=== PATIENT | male | born 2000 | race Caucasian/White ===

== ENCOUNTER 2019-05-15 10:45 | Inpatient (IN) | payer OTHER ==
[2019-05-15 12:01] VITALS: BMI 29.8
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
[2019-05-15] MEDS ORDERED: METHADONE HCL 10 MG TABLET (FOR DETOX USE ONLY) PO ONE (15:53)
[2019-05-15] MEDS ORDERED: MENTHOL/PHENOL 1 EACH UD MM PRN (15:53)
[2019-05-15] MEDS ORDERED: MAGNESIUM CITRATE 300 ML BOTTLE PO PRN (15:53)
[2019-05-15] MEDS ORDERED: MAGNESIUM HYDROX 2400MG/30ML ORAL SUSPENSION 30 ML CUP PO PRN (15:53)
[2019-05-15] MEDS ORDERED: BISMUTH SUBSALICYLATE 524 MG/30 ML UD PO PRN (15:53)
[2019-05-15] MEDS ORDERED: ACETAMINOPHEN 325 MG TABLET (FP) PO PRN ×2 (15:53)
[2019-05-15] MEDS ORDERED: MAG HYDROX/AL HYDROX/SIMETH 30 ML UNIT-DOSE CUP PO PRN (15:53)
[2019-05-15] MEDS: diazePAM 5 MG TABLET PO PRN (17:16)
[2019-05-15] MEDS: NICOTINE 21 MG/24 HOURS TOPICAL PATCH TD SCH (17:17)
[2019-05-15] MEDS: THIAMINE HCL 100 MG TABLET (FP) PO SCH (22:23)
[2019-05-16] MEDS ORDERED: METHADONE HCL 10 MG TABLET (FOR DETOX USE ONLY) ONE (09:17)
[2019-05-16] MEDS ORDERED: METHADONE HCL 5 MG TABLET (FOR DETOX USE ONLY) ONE (09:17)
[2019-05-16] MEDS ORDERED: METHADONE (DETOX) 20 MG, METHADONE (DETOX) 5 MG PO ONE (10:00)
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
[2019-05-16] MEDS: PRENATAL VITAMINS W/ FOLIC ACID TABLET (FP) PO SCH (10:18)
[2019-05-16] MEDS: METHOCARBAMOL 500 MG TABLET PO PRN ×2 (10:18→16:41)
[2019-05-16] MEDS: diazePAM 5 MG TABLET PO PRN ×2 (10:19→22:21)
[2019-05-16] MEDS: NICOTINE 21 MG/24 HOURS TOPICAL PATCH TD SCH (10:23)
[2019-05-16 10:49] LABS: ALBUMIN 3.7 g/dl (3.4-5.0); BILIRUBIN,TOTAL 0.7 mg/dL (0.2-1); BLOOD UREA NITROGEN 11.5 mg/dL (7-18); CALCIUM 8.5 mg/dL (8.5-10.1); CREATININE 1.1 mg/dL (0.55-1.3); POTASSIUM 4.3 mmol/L (3.5-5.1); TOT PROT 6.4 g/dl (6.4-8.2)
[2019-05-16 11:05] LABS: HEMOGLOBIN 13.7 GM/dL (11.7-16.9); MCH 29.8 pg (25.7-33.7); MCHC 34.3 g/dl (32.0-35.9); MEAN CELL VOLUME 86.8 fl (80-96); MEAN PLT VOLUME 8.6 fl (7.5-11.1); PLATELET COUNT 242 K/MM3 (134-434); RBC 4.61 M/mm3 (4.00-5.60); RDW 13.3 % (11.9-15.9)
--- NOTE | 2019-05-16 11:30 | PN ---
[facility] COWS - Scale Resting Pulse: 0= [place] 80 or Below Sweatin= Chills/Flushing Restless Observation: 0= Sits Still Pupil Size: 1= Pupils >than Normal Bone or Joint Aches: 1= Mild Discomfort Runny Nose/ Eye Tearin= Nasal Congestion GI Upset > 30mins: 1= Stomach Cramp Tremor Observation of Outstretched Hands: 2= Slight Tremor Visible Yawning Observation: 0= None Anxiety or Irritability: 2=Irritable/Anxious Goose Flesh Skin: 3=Piloerection COWS Score: 12 [facility] Progress Note (SOAP) Subjective: doing well with methadone detox regimen mild gi distress tolerate food and fluid well Objective: 05/16/19 11:28 Vital Signs Temperature 96.6 F L 05/16/19 09:43 Pulse Rate 51 L 05/16/19 09:43 Respiratory Rate 18 05/16/19 09:43 Blood Pressure 113/66 05/16/19 09:43 O2 Sat by Pulse Oximetry (%) Laboratory Last Values WBC 8.0 K/mm3 (4.0-10.0) 05/16/19 07:30 RBC 4.61 M/mm3 (4.00-5.60) 05/16/19 07:30 Hgb 13.7 GM/dL (11.7-16.9) 05/16/19 07:30 Hct 40.0 % (35.4-49) 05/16/19 07:30 MCV 86.8 fl (80-96) 05/16/19 07:30 MCH 29.8 pg (25.7-33.7) 05/16/19 07:30 MCHC 34.3 g/dl (32.0-35.9) 05/16/19 07:30 RDW 13.3 % (11.9-15.9) 05/16/19 07:30 Plt Count 242 K/MM3 (134-434) 05/16/19 07:30 MPV 8.6 fl (7.5-11.1) 05/16/19 07:30 Sodium 141 mmol/L (136-145) 05/16/19 07:30 Potassium 4.3 mmol/L (3.5-5.1) 05/16/19 07:30 Chloride 106 mmol/L (98-107) 05/16/19 07:30 Carbon Dioxide 29 mmol/L (21-32) 05/16/19 07:30 Anion Gap 6 MMOL/L (8-16) L 05/16/19 07:30 BUN 11.5 mg/dL (7-18) 05/16/19 07:30 Creatinine 1.1 mg/dL (0.55-1.3) 05/16/19 07:30 Est GFR (CKD-EPI)AfAm 111.41 05/16/19 07:30 Est GFR (CKD-EPI)NonAf 96.13 05/16/19 07:30 Random Glucose 85 mg/dL (74-106) 05/16/19 07:30 Calcium 8.5 mg/dL (8.5-10.1) 05/16/19 07:30 Total Bilirubin 0.7 mg/dL (0.2-1) 05/16/19 07:30 AST 12 U/L (15-37) L 05/16/19 07:30 ALT 23 U/L (13-61) 05/16/19 07:30 Alkaline Phosphatase 82 U/L (45-117) 05/16/19 07:30 Total Protein 6.4 g/dl (6.4-8.2) 05/16/19 07:30 Albumin 3.7 g/dl (3.4-5.0) 05/16/19 07:30 lab noted 05/16/19 11:29 discuss medication assisted treatment program corn picker narcan from pharmacy Assessment: 05/16/19 11:28 opiate withdrawal sx Plan: continue methadone detox regimen
[2019-05-16] MEDS: risperiDONE 1 MG TABLET (FP) PO SCH ×2 (12:48→22:21)
[2019-05-16] MEDS: IBUPROFEN 400 MG TABLET (FP) PO PRN (16:40)
[2019-05-16] MEDS: cloNIDine HCL 0.1 MG TABLET PO PRN ×2 (16:41→22:21)
[2019-05-16] MEDS: hydrOXYzine PAMOATE 25 MG CAPSULE (FP) PO PRN (16:41)
[2019-05-16] MEDS: MELATONIN 5 MG TABLETS PO PRN (22:21)
[2019-05-16] MEDS: THIAMINE HCL 100 MG TABLET (FP) PO SCH (22:21)
[2019-05-17] MEDS ORDERED: METHADONE HCL 10 MG TABLET (FOR DETOX USE ONLY) PO ONE (10:00)
[2019-05-17] MEDS: NICOTINE 21 MG/24 HOURS TOPICAL PATCH TD SCH (10:30)
[2019-05-17] MEDS: PRENATAL VITAMINS W/ FOLIC ACID TABLET (FP) PO SCH (10:30)
[2019-05-17] MEDS: risperiDONE 1 MG TABLET (FP) PO SCH ×2 (10:30→22:14)
[2019-05-17] MEDS: diazePAM 5 MG TABLET PO PRN ×3 (10:33→20:34)
[2019-05-17] MEDS: hydrOXYzine PAMOATE 25 MG CAPSULE (FP) PO PRN ×2 (10:33→16:47)
--- NOTE | 2019-05-17 10:57 | PN ---
BHS COWS - Scale Resting Pulse: 0= [place] 80 or Below Sweatin= Chills/Flushing Restless Observation: 0= Sits Still Pupil Size: 1= Pupils >than Normal Bone or Joint Aches: 1= Mild Discomfort Runny Nose/ Eye Tearin= Nasal Congestion GI Upset > 30mins: 1= Stomach Cramp Tremor Observation of Outstretched Hands: 2= Slight Tremor Visible Yawning Observation: 1= 1-2x During Session Anxiety or Irritability: 2=Irritable/Anxious Goose Flesh Skin: 0=Smooth Skin COWS Score: 10 [facility] Progress Note (SOAP) Subjective: doing well with methadone detox regimen less anxious ambulating on hallway discuss medication assisted treatment progrma pickle pumper narcan from pharmacy Objective: 05/17/19 10:56 Vital Signs Temperature 96.3 F L 05/17/19 09:17 Pulse Rate 57 L 05/17/19 09:17 Respiratory Rate 18 05/17/19 09:17 Blood Pressure 114/73 05/17/19 09:17 O2 Sat by Pulse Oximetry (%) Laboratory Last Values WBC 8.0 K/mm3 (4.0-10.0) 05/16/19 07:30 RBC 4.61 M/mm3 (4.00-5.60) 05/16/19 07:30 Hgb 13.7 GM/dL (11.7-16.9) 05/16/19 07:30 Hct 40.0 % (35.4-49) 05/16/19 07:30 MCV 86.8 fl (80-96) 05/16/19 07:30 MCH 29.8 pg (25.7-33.7) 05/16/19 07:30 MCHC 34.3 g/dl (32.0-35.9) 05/16/19 07:30 RDW 13.3 % (11.9-15.9) 05/16/19 07:30 Plt Count 242 K/MM3 (134-434) 05/16/19 07:30 MPV 8.6 fl (7.5-11.1) 05/16/19 07:30 Sodium 141 mmol/L (136-145) 05/16/19 07:30 Potassium 4.3 mmol/L (3.5-5.1) 05/16/19 07:30 Chloride 106 mmol/L (98-107) 05/16/19 07:30 Carbon Dioxide 29 mmol/L (21-32) 05/16/19 07:30 Anion Gap 6 MMOL/L (8-16) L 05/16/19 07:30 BUN 11.5 mg/dL (7-18) 05/16/19 07:30 Creatinine 1.1 mg/dL (0.55-1.3) 05/16/19 07:30 Est GFR (CKD-EPI)AfAm 111.41 05/16/19 07:30 Est GFR (CKD-EPI)NonAf 96.13 05/16/19 07:30 Random Glucose 85 mg/dL (74-106) 05/16/19 07:30 Calcium 8.5 mg/dL (8.5-10.1) 05/16/19 07:30 Total Bilirubin 0.7 mg/dL (0.2-1) 05/16/19 07:30 AST 12 U/L (15-37) L 05/16/19 07:30 ALT 23 U/L (13-61) 05/16/19 07:30 Alkaline Phosphatase 82 U/L (45-117) 05/16/19 07:30 Total Protein 6.4 g/dl (6.4-8.2) 05/16/19 07:30 Albumin 3.7 g/dl (3.4-5.0) 05/16/19 07:30 RPR Titer Nonreactive (NONREACTIVE) 05/16/19 07:30 lab noted Assessment: 05/17/19 10:56 opiate withdrawal sx Plan: continue methadone detox regimen
--- NOTE | 2019-05-17 13:26 | EKG ---
Test Reason : Blood Pressure : / mmHG Vent. Rate : 045 BPM Atrial Rate : 045 BPM P-R Int : 128 ms QRS Dur : 104 ms QT Int : 472 ms P-R-T Axes : 058 077 060 degrees QTc Int : 408 ms SINUS BRADYCARDIA OTHERWISE NORMAL ECG NO PREVIOUS ECGS AVAILABLE Confirmed by OSCAR MOORE MD ([id number]) on 05/17/2019 1:25:50 PM Referred By: ADRIAN GAITAN Confirmed By:OSCAR MOORE MD
[2019-05-17] MEDS: METHOCARBAMOL 500 MG TABLET PO PRN ×2 (14:37→20:34)
[2019-05-17] MEDS: cloNIDine HCL 0.1 MG TABLET PO PRN (16:45)
[2019-05-17] MEDS: IBUPROFEN 400 MG TABLET (FP) PO PRN (16:45)
[2019-05-17] MEDS: THIAMINE HCL 100 MG TABLET (FP) PO SCH (22:14)
[2019-05-17] MEDS: MELATONIN 5 MG TABLETS PO PRN (22:14)
[2019-05-18] MEDS: hydrOXYzine PAMOATE 25 MG CAPSULE (FP) PO PRN ×4 (01:03→22:13)
[2019-05-18] MEDS: diazePAM 5 MG TABLET PO PRN ×2 (01:03→10:32)
[2019-05-18] MEDS ORDERED: METHADONE HCL 10 MG TABLET (FOR DETOX USE ONLY) ONE ×3 (08:12)
[2019-05-18] MEDS ORDERED: METHADONE HCL 5 MG TABLET (FOR DETOX USE ONLY) ONE ×3 (08:12)
[2019-05-18] MEDS ORDERED: METHADONE (DETOX) 10 MG, METHADONE (DETOX) 5 MG PO ONE (10:00)
[2019-05-18] MEDS: NICOTINE 21 MG/24 HOURS TOPICAL PATCH TD SCH (10:32)
[2019-05-18] MEDS: PRENATAL VITAMINS W/ FOLIC ACID TABLET (FP) PO SCH (10:32)
[2019-05-18] MEDS: METHOCARBAMOL 500 MG TABLET PO PRN ×3 (10:32→22:12)
[2019-05-18] MEDS: risperiDONE 1 MG TABLET (FP) PO SCH ×2 (10:32→22:12)
[2019-05-18] MEDS: IBUPROFEN 400 MG TABLET (FP) PO PRN (11:44)
[2019-05-18] MEDS ORDERED: ARTIFICIAL TEARS (POLYVINYL ALCOHOL) OPTH DROPS OU PRN (14:27)
--- NOTE | 2019-05-18 14:32 | PN ---
BHS COWS - Scale Resting Pulse: 0= [place] 80 or Below Sweatin= No chills or Flushing Restless Observation: 1= Difficult to Sit Still Pupil Size: 0= Normal to Room Light Bone or Joint Aches: 4=Acute Joint/Muscle Pain Runny Nose/ Eye Tearin= None GI Upset > 30mins: 0= None Tremor Observation of Outstretched Hands: 0= None Yawning Observation: 1= 1-2x During Session Anxiety or Irritability: 2=Irritable/Anxious Goose Flesh Skin: 3=Piloerection (and Itching.) COWS Score: 11 [facility] Progress Note (SOAP) Subjective: Anxious, Body Aches, Restless, Itching. Objective: PATIENT A & O X 3, OBSERVED AMBULATING ON DETOX UNIT UNASSISTED. IN NO ACUTE DISTRESS. 05/18/19 14:31 Vital Signs Temperature 97.9 F 05/18/19 09:16 Pulse Rate 71 05/18/19 09:16 Respiratory Rate 18 05/18/19 09:16 Blood Pressure 124/62 05/18/19 09:16 O2 Sat by Pulse Oximetry (%) Laboratory Tests 05/16/19 05/16/19 05/16/19 07:30 07:30 07:30 WBC 8.0 RBC 4.61 Hgb 13.7 Hct 40.0 MCV 86.8 MCH 29.8 MCHC 34.3 RDW 13.3 Plt Count 242 MPV 8.6 Sodium 141 Potassium 4.3 Chloride 106 Carbon Dioxide 29 Anion Gap 6 L BUN 11.5 Creatinine 1.1 Est GFR (CKD-EPI)AfAm 111.41 Est GFR (CKD-EPI)NonAf 96.13 Random Glucose 85 Calcium 8.5 Total Bilirubin 0.7 AST 12 L ALT 23 Alkaline Phosphatase 82 Total Protein 6.4 Albumin 3.7 RPR Titer Nonreactive LABS NOTED. Assessment: 05/18/19 14:32 WITHDRAWAL SYMPTOMS. Plan: CONTINUE DETOX. INCREASE DAILY PO WATER INTAKE. PRN ROBAXIN FOR BODY ACHES / MUSCLE SPASMS.
[2019-05-18] MEDS: LIDOCAINE 5% TOPICAL PATCH TP SCH (15:40)
[2019-05-18] MEDS ORDERED: IBUPROFEN 600 MG TABLET (FP) PO ONE (17:02)
[2019-05-18] MEDS: NICOTINE POLACRILEX 2 MG GUM BUC PRN (17:04)
[2019-05-18 17:13] LABS: PH,URINE 5.5 (5.0-8.0); URINE APPEARANCE CLEAR; URINE BILIRUBIN NEGATIVE (NEGATIVE); URINE COLOR YELLOW; URINE GLUCOSE (UA) NEGATIVE (NEGATIVE); URINE KETONE NEGATIVE (NEGATIVE); URINE LEUK ESTERASE NEGATIVE (NEGATIVE); URINE NITRITE NEGATIVE (NEGATIVE); URINE PROTEIN NEGATIVE (NEGATIVE); URINE UROBILINOGEN 0.2 mg/dL (0.2-1.0)
[2019-05-18] MEDS: IBUPROFEN 600 MG TABLET (FP) PO PRN (20:14)
[2019-05-18] MEDS: THIAMINE HCL 100 MG TABLET (FP) PO SCH (22:12)
[2019-05-18] MEDS: MELATONIN 5 MG TABLETS PO PRN (22:14)
[2019-05-18] MEDS: BACITRACIN 15 GM TUBE TOPICAL OINTMENT TP SCH (22:46)
[2019-05-18] MEDS: LIDOCAINE PATCH REMOVAL MC SCH (22:47)
[2019-05-19] MEDS ORDERED: METHADONE HCL 10 MG TABLET (FOR DETOX USE ONLY) PO ONE (10:00)
[2019-05-19] MEDS: NICOTINE 21 MG/24 HOURS TOPICAL PATCH TD SCH (10:39)
[2019-05-19] MEDS: NICOTINE POLACRILEX 2 MG GUM BUC PRN (10:39)
[2019-05-19] MEDS: METHOCARBAMOL 500 MG TABLET PO PRN ×3 (10:39→23:23)
[2019-05-19] MEDS: hydrOXYzine PAMOATE 25 MG CAPSULE (FP) PO PRN ×3 (10:39→22:29)
[2019-05-19] MEDS: PRENATAL VITAMINS W/ FOLIC ACID TABLET (FP) PO SCH (10:39)
[2019-05-19] MEDS: risperiDONE 1 MG TABLET (FP) PO SCH ×2 (10:39→22:02)
[2019-05-19] MEDS: BACITRACIN 15 GM TUBE TOPICAL OINTMENT TP SCH ×2 (10:40→22:01)
[2019-05-19] MEDS: LIDOCAINE 5% TOPICAL PATCH TP SCH (10:47)
--- NOTE | 2019-05-19 14:22 | PN ---
BHS COWS - Scale Resting Pulse: 1= [place] 81-100 Sweatin= No chills or Flushing Restless Observation: 1= Difficult to Sit Still Pupil Size: 0= Normal to Room Light Bone or Joint Aches: 2= Severe Diffuse Aches Runny Nose/ Eye Tearin= None GI Upset > 30mins: 1= Stomach Cramp Tremor Observation of Outstretched Hands: 0= None Yawning Observation: 1= 1-2x During Session Anxiety or Irritability: 2=Irritable/Anxious Goose Flesh Skin: 0=Smooth Skin COWS Score: 8 [facility] Progress Note (SOAP) Subjective: Anxious, Restless, Body Aches, Stomach Cramping. Objective: PATIENT A & O X 3, OBSERVED AMBULATING ON DETOX UNIT UNASSISTED. IN NO ACUTE DISTRESS. 05/19/19 14:20 Vital Signs Temperature 96.5 F L 05/19/19 13:28 Pulse Rate 90 05/19/19 13:28 Respiratory Rate 18 05/19/19 13:28 Blood Pressure 124/75 05/19/19 13:28 O2 Sat by Pulse Oximetry (%) Laboratory Tests 05/16/19 05/16/19 05/16/19 07:30 07:30 07:30 WBC 8.0 RBC 4.61 Hgb 13.7 Hct 40.0 MCV 86.8 MCH 29.8 MCHC 34.3 RDW 13.3 Plt Count 242 MPV 8.6 Sodium 141 Potassium 4.3 Chloride 106 Carbon Dioxide 29 Anion Gap 6 L BUN 11.5 Creatinine 1.1 Est GFR (CKD-EPI)AfAm 111.41 Est GFR (CKD-EPI)NonAf 96.13 Random Glucose 85 Calcium 8.5 Total Bilirubin 0.7 AST 12 L ALT 23 Alkaline Phosphatase 82 Total Protein 6.4 Albumin 3.7 Urine Color Urine Appearance Urine pH Ur Specific [place] Urine Protein Urine Glucose (UA) Urine Ketones Urine Blood Urine Nitrite Urine Bilirubin Urine Urobilinogen Ur Leukocyte Esterase RPR Titer Nonreactive 05/18/19 16:37 WBC RBC Hgb Hct MCV MCH MCHC RDW Plt Count MPV Sodium Potassium Chloride Carbon Dioxide Anion Gap BUN Creatinine Est GFR (CKD-EPI)AfAm Est GFR (CKD-EPI)NonAf Random Glucose Calcium Total Bilirubin AST ALT Alkaline Phosphatase Total Protein Albumin Urine Color Yellow Urine Appearance Clear Urine pH 5.5 Ur Specific [place] 1.008 L Urine Protein Negative Urine Glucose (UA) Negative Urine Ketones Negative Urine Blood Negative Urine Nitrite Negative Urine Bilirubin Negative Urine Urobilinogen 0.2 Ur Leukocyte Esterase Negative RPR Titer LABS NOTED. Assessment: 05/19/19 14:21 WITHDRAWAL SYMPTOMS. Plan: CONTINUE DETOX.
[2019-05-19] MEDS: IBUPROFEN 600 MG TABLET (FP) PO PRN (14:32)
[2019-05-19] MEDS: LIDOCAINE PATCH REMOVAL MC SCH (22:02)
[2019-05-19] MEDS: THIAMINE HCL 100 MG TABLET (FP) PO SCH (22:02)
[2019-05-20] MEDS: IBUPROFEN 600 MG TABLET (FP) PO PRN (05:55)
[2019-05-20] MEDS: METHOCARBAMOL 500 MG TABLET PO PRN (05:55)
[2019-05-20] MEDS: hydrOXYzine PAMOATE 25 MG CAPSULE (FP) PO PRN (05:56)
[2019-05-20] MEDS ORDERED: METHADONE HCL 5 MG TABLET (FOR DETOX USE ONLY) PO ONE (06:00)
--- NOTE | 2019-05-20 09:07 | PN ---
S Progress Note Note: Patient scheduled for discharge today. A 30 day prescription of Risperdal 1mg BID was electronically sent to [facility], [address] [place] [address].
[2019-05-20 09:16] VITALS: BP 142/76; PULSE 98; TEMP 96.9
--- NOTE | 2019-05-20 09:43 | DS ---
[facility] Detox Discharge Summary Admission Date: 05/15/19 Discharge Date: 05/20/19 - History Present History: Cannabis Dependence, Cocaine Dependence, Opioid Dependence Additional Comments: follow up with pcp - Physical Exam Results Vital Signs: Vital Signs Temperature 96.9 F L 05/20/19 08:50 Pulse Rate 98 H 05/20/19 08:50 Respiratory Rate 18 05/20/19 08:50 Blood Pressure 142/76 05/20/19 08:50 O2 Sat by Pulse Oximetry (%) Pertinent Admission Physical Exam Findings: Vital Signs Temperature 96.9 F L 05/20/19 08:50 Pulse Rate 98 H 05/20/19 08:50 Respiratory Rate 18 05/20/19 08:50 Blood Pressure 142/76 05/20/19 08:50 O2 Sat by Pulse Oximetry (%) Laboratory Last Values WBC 8.0 K/mm3 (4.0-10.0) 05/16/19 07:30 RBC 4.61 M/mm3 (4.00-5.60) 05/16/19 07:30 Hgb 13.7 GM/dL (11.7-16.9) 05/16/19 07:30 Hct 40.0 % (35.4-49) 05/16/19 07:30 MCV 86.8 fl (80-96) 05/16/19 07:30 MCH 29.8 pg (25.7-33.7) 05/16/19 07:30 MCHC 34.3 g/dl (32.0-35.9) 05/16/19 07:30 RDW 13.3 % (11.9-15.9) 05/16/19 07:30 Plt Count 242 K/MM3 (134-434) 05/16/19 07:30 MPV 8.6 fl (7.5-11.1) 05/16/19 07:30 Sodium 141 mmol/L (136-145) 05/16/19 07:30 Potassium 4.3 mmol/L (3.5-5.1) 05/16/19 07:30 Chloride 106 mmol/L (98-107) 05/16/19 07:30 Carbon Dioxide 29 mmol/L (21-32) 05/16/19 07:30 Anion Gap 6 MMOL/L (8-16) L 05/16/19 07:30 BUN 11.5 mg/dL (7-18) 05/16/19 07:30 Creatinine 1.1 mg/dL (0.55-1.3) 05/16/19 07:30 Est GFR (CKD-EPI)AfAm 111.41 05/16/19 07:30 Est GFR (CKD-EPI)NonAf 96.13 05/16/19 07:30 Random Glucose 85 mg/dL (74-106) 05/16/19 07:30 Calcium 8.5 mg/dL (8.5-10.1) 05/16/19 07:30 Total Bilirubin 0.7 mg/dL (0.2-1) 05/16/19 07:30 AST 12 U/L (15-37) L 05/16/19 07:30 ALT 23 U/L (13-61) 05/16/19 07:30 Alkaline Phosphatase 82 U/L (45-117) 05/16/19 07:30 Total Protein 6.4 g/dl (6.4-8.2) 05/16/19 07:30 Albumin 3.7 g/dl (3.4-5.0) 05/16/19 07:30 Urine Color Yellow 05/18/19 16:37 Urine Appearance Clear 05/18/19 16:37 Urine pH 5.5 (5.0-8.0) 05/18/19 16:37 Ur Specific [place] 1.008 (1.010-1.035) L 05/18/19 16:37 Urine Protein Negative (NEGATIVE) 05/18/19 16:37 Urine Glucose (UA) Negative (NEGATIVE) 05/18/19 16:37 Urine Ketones Negative (NEGATIVE) 05/18/19 16:37 Urine Blood Negative (NEGATIVE) 05/18/19 16:37 Urine Nitrite Negative (NEGATIVE) 05/18/19 16:37 Urine Bilirubin Negative (NEGATIVE) 05/18/19 16:37 Urine Urobilinogen 0.2 mg/dL (0.2-1.0) 05/18/19 16:37 Ur Leukocyte Esterase Negative (NEGATIVE) 05/18/19 16:37 RPR Titer Nonreactive (NONREACTIVE) 05/16/19 07:30 - Treatment Hospital Course: Detox Protocol Followed, Detoxed Safely, Responded well, Discharged Condition Good, Rehab Referral Accepted - Medication Discharge Medications: Ambulatory Orders Naloxone HCl [Narcan] 4 mg NS ASDIR PRN #1 spray 05/16/19 Risperidone [Risperdal -] 1 mg PO BID #60 tablet 05/20/19 - Diagnosis (1) Cannabis dependence Status: Acute (2) Opioid dependence with withdrawal Status: Acute - AMA Did Patient Leave Against Medical Advice: No
[2019-05-20] MEDS: BACITRACIN 15 GM TUBE TOPICAL OINTMENT TP SCH (10:32)
[2019-05-20] MEDS: LIDOCAINE 5% TOPICAL PATCH TP SCH (10:32)
[2019-05-20] MEDS: PRENATAL VITAMINS W/ FOLIC ACID TABLET (FP) PO SCH (10:32)
[2019-05-20] MEDS: NICOTINE 21 MG/24 HOURS TOPICAL PATCH TD SCH (10:32)
[2019-05-20] MEDS: risperiDONE 1 MG TABLET (FP) PO SCH (10:32)
== END 2019-05-20 08:53 | disposition home or self-care (01) | DRG 773 ==
LOC: EDBD 10:45 → YASAS 10:45 → Y3N 16:03
PROVIDERS: ADMIT Surgery; ATTEND Surgery
PROC: HZ2ZZZZ Detoxification Services for Substance Abuse Treatment (ICD-10-PCS; principal; 2019-05-15)
DX: F11.23 Opioid dependence with withdrawal (principal); F14.20 Cocaine dependence, uncomplicated; F12.20 Cannabis dependence, uncomplicated; F17.210 Nicotine dependence, cigarettes, uncomplicated; F43.10 Post-traumatic stress disorder, unspecified; F39 Unspecified mood [affective] disorder; F19.24 Other psychoactive substance dependence with psychoactive substance-induced mood disorder; F41.8 Other specified anxiety disorders; F31.9 Bipolar disorder, unspecified
CPT/HCPCS: 36415; 80053; 81003; 85027; 86593; 93005; 93010; J0735; J2794

== ENCOUNTER 2019-05-22 15:42 | Inpatient (IN) | payer OTHER ==
[2019-05-22 16:39] VITALS: BMI 28.5
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
[2019-05-22] MEDS ORDERED: MAGNESIUM HYDROX 2400MG/30ML ORAL SUSPENSION 30 ML CUP PO PRN (18:39)
[2019-05-22] MEDS ORDERED: MAG HYDROX/AL HYDROX/SIMETH 30 ML UNIT-DOSE CUP PO PRN (18:39)
[2019-05-22] MEDS ORDERED: NICOTINE POLACRILEX 2 MG GUM BC PRN (18:39)
[2019-05-22] MEDS ORDERED: MENTHOL/PHENOL 1 EACH UD MM PRN (18:39)
[2019-05-22] MEDS ORDERED: guaiFENesin 200 MG/10 ML 10 ML UNIT-DOSE CUPS PO PRN (18:39)
[2019-05-22] MEDS ORDERED: LOPERAMIDE HCL 2 MG CAPSULE PO PRN (18:39)
[2019-05-22] MEDS ORDERED: MAGNESIUM CITRATE 300 ML BOTTLE PO PRN (18:39)
[2019-05-22] MEDS ORDERED: ACETAMINOPHEN 325 MG TABLET (FP) PO PRN (18:39)
[2019-05-22] MEDS ORDERED: THIAMINE HCL 100 MG TABLET (FP) PO SCH (22:00)
[2019-05-22] MEDS ORDERED: MELATONIN 5 MG TABLETS PO PRN (22:00)
[2019-05-22] MEDS: METHOCARBAMOL 500 MG TABLET PO SCH (22:05)
[2019-05-22] MEDS: hydrOXYzine PAMOATE 50 MG CAPSULE (FP) PO PRN (22:06)
[2019-05-22] MEDS: NICOTINE 21 MG/24 HOURS TOPICAL PATCH TD SCH (22:06)
[2019-05-22] MEDS: IBUPROFEN 400 MG TABLET (FP) PO PRN (22:59)
[2019-05-22] MEDS: P-EPHED 60MG/TRIPROLIDI 2.5MG TABLET PO PRN (23:11)
[2019-05-23] MEDS ORDERED: PRENATAL VITAMINS W/ FOLIC ACID TABLET (FP) PO SCH (10:00)
[2019-05-23] MEDS: METHOCARBAMOL 500 MG TABLET PO SCH (10:48)
[2019-05-23] MEDS: NICOTINE 21 MG/24 HOURS TOPICAL PATCH TD SCH (10:49)
[2019-05-23] MEDS: hydrOXYzine PAMOATE 50 MG CAPSULE (FP) PO PRN ×2 (10:51→16:49)
[2019-05-23] MEDS: P-EPHED 60MG/TRIPROLIDI 2.5MG TABLET PO PRN (10:51)
[2019-05-23] MEDS: IBUPROFEN 400 MG TABLET (FP) PO PRN (10:52)
[2019-05-23] MEDS ORDERED: FLU VACCINE QUAD 60 MCG/0.5 ML (MDV 19-20) IM ONE (12:00)
[2019-05-23 16:51] VITALS: BP 126/69; PULSE 86; TEMP 98.1
--- NOTE | 2019-05-23 17:48 | PN ---
[facility] Progress Note Note: Patient states does not want to stay. Will be f/u w/ outpatient program. Alert and oriented. Gait steady. No withdrawal symptoms. Vital Signs 05/23/19 16:50 Temperature 98.1 F Pulse Rate 86 Respiratory 18 Rate Blood Pressure 126/69 Discussed overdose risks and prevention. States Narcan ordered at time of detox. Reviewed importance of smoking cessation to aide in sobriety. Consents to Nicotine gum and patch prescriptions to pharmacy.
--- NOTE | 2019-05-23 17:49 | DS ---
[facility] Rehab Discharge Summary - [facility] Rehab Discharge Summary Admission Date: 05/22/19 Discharge Date: 05/23/19 - History Present History: Cannabis dependence, Cocaine dependence, Opioid dependence Pertinent Past History: Patient w/ a hx opioid, cannabis, and cocaine use disorder. Patient discharged from detox on 05/20/19. - Discharge Physical Exam Vital Signs: Vital Signs Temperature 98.1 F 05/23/19 16:50 Pulse Rate 86 05/23/19 16:50 Respiratory Rate 18 05/23/19 16:50 Blood Pressure 126/69 05/23/19 16:50 O2 Sat by Pulse Oximetry (%) Pertinent Admission Physical Exam Findings: Admitted w/ early opioid, cocaine, and THC remission. - Treatment Discharge Condition: Outpatient referral accepted Hospital Course: Patient in rehab for one day. Patient states does not want to stay and he will be f/u w/ outpatient program referral. Alert and oriented. Gait steady. No withdrawal symptoms. Discussed overdose risks and prevention. States Narcan ordered at time of detox. Reviewed importance of smoking cessation to aide in sobriety. Consents to Nicotine gum and patch prescriptions to pharmacy. - Medication Discharge Medications: Ambulatory Orders Risperidone [Risperdal -] 1 mg PO BID #60 tablet 05/20/19 Nicotine Patch [Nicoderm Patch -] 21 mg TD DAILY #30 patch 05/23/19 Nicotine Polacrilex [Nicorelief -] 2 mg BC Q2H PRN #90 gum 05/23/19 - Medication-Assisted Treatment (MAT) Medication-Assisted Treatment (MAT): No - Discharge Instructions Diet, activity, other medical instructions: Diet: Activity: Other medical instructions: - Diagnosis (1) Opioid use disorder, moderate, in early remission Status: Acute (2) Cocaine use disorder, moderate, in early remission Status: Acute (3) Moderate cannabis dependence in early remission Status: Acute (4) Nicotine use disorder Status: Chronic - Follow-up Referral Minutes to complete discharge: 20 - AMA Did Patient Leave Against Medical Advice: Yes
== END 2019-05-23 18:00 | disposition left against medical advice (07) | DRG 770 ==
LOC: YASAS 15:42 → Y5N 18:54
PROVIDERS: ADMIT Neuromusculoskeletal Medicine & OMM; ATTEND Neuromusculoskeletal Medicine & OMM
PROC: HZ42ZZZ Group Counseling for Substance Abuse Treatment, Cognitive-Behavioral (ICD-10-PCS; principal; 2019-05-22)
DX: F11.20 Opioid dependence, uncomplicated (principal); F14.20 Cocaine dependence, uncomplicated; F12.20 Cannabis dependence, uncomplicated; F17.210 Nicotine dependence, cigarettes, uncomplicated; F41.9 Anxiety disorder, unspecified; F31.9 Bipolar disorder, unspecified; F19.24 Other psychoactive substance dependence with psychoactive substance-induced mood disorder
CPT/HCPCS: Q2036

== ENCOUNTER 2019-10-16 22:50 | Inpatient (IN) | payer OTHER ==
[2019-10-16 23:20] VITALS: BMI 34.8
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
[2019-10-16] MEDS ORDERED: MAG HYDROX/AL HYDROX/SIMETH 30 ML UNIT-DOSE CUP PO PRN (23:33)
[2019-10-16] MEDS ORDERED: MENTHOL/PHENOL 1 EACH UD MM PRN (23:33)
[2019-10-16] MEDS ORDERED: NALOXONE HCL 0.4 MG/ML VIAL IM PRN (23:33)
[2019-10-16] MEDS ORDERED: IBUPROFEN 400 MG TABLET (FP) PO PRN (23:33)
[2019-10-16] MEDS ORDERED: MAGNESIUM HYDROX 2400MG/30ML ORAL SUSPENSION 30 ML CUP PO PRN (23:33)
[2019-10-16] MEDS ORDERED: cloNIDine HCL 0.1 MG TABLET PO PRN (23:33)
[2019-10-16] MEDS ORDERED: MAGNESIUM CITRATE 300 ML BOTTLE PO PRN (23:33)
[2019-10-16] MEDS ORDERED: NICOTINE POLACRILEX 2 MG GUM BUC PRN (23:33)
[2019-10-16] MEDS ORDERED: ACETAMINOPHEN 325 MG TABLET (FP) PO PRN ×2 (23:33)
[2019-10-16] MEDS ORDERED: BISMUTH SUBSALICYLATE 524 MG/30 ML UD PO PRN (23:33)
[2019-10-16] MEDS ORDERED: METHADONE HCL 10 MG TABLET (FOR DETOX USE ONLY) PO ONE ×2 (23:55→23:59)
[2019-10-17] MEDS: MELATONIN 5 MG TABLETS PO PRN ×2 (00:59→22:10)
[2019-10-17 09:27] LABS: HEMATOCRIT 38.5 % (35.4-49); HEMOGLOBIN 13.5 GM/dL (11.7-16.9); MCH 29.9 pg (25.7-33.7); MEAN CELL VOLUME 85.4 fl (80-96); MEAN PLT VOLUME 7.8 fl (7.5-11.1); PLATELET COUNT 256 K/MM3 (134-434); RBC 4.51 M/mm3 (4.00-5.60); RDW 12.8 % (11.9-15.9); WHITE BLOOD COUNT 7.4 K/mm3 (4.0-10.0)
[2019-10-17] MEDS ORDERED: METHADONE HCL 10 MG TABLET (FOR DETOX USE ONLY) ONE (09:32)
[2019-10-17] MEDS ORDERED: METHADONE HCL 5 MG TABLET (FOR DETOX USE ONLY) ONE (09:33)
[2019-10-17 09:38] LABS: ALBUMIN 3.8 g/dl (3.4-5.0); BILIRUBIN,TOTAL 1.4 mg/dL (0.2-1); BLOOD UREA NITROGEN 11.7 mg/dL (7-18); CALCIUM 8.8 mg/dL (8.5-10.1); CREATININE 1.2 mg/dL (0.55-1.3); POTASSIUM 3.9 mmol/L (3.5-5.1); TOT PROT 6.4 g/dl (6.4-8.2)
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
[2019-10-17] MEDS ORDERED: METHADONE (DETOX) 20 MG, METHADONE (DETOX) 5 MG PO ONE (10:00)
[2019-10-17] MEDS: NICOTINE 21 MG/24 HOURS TOPICAL PATCH TD SCH (10:03)
[2019-10-17] MEDS: PRENATAL VITAMINS W/ FOLIC ACID TABLET (FP) PO SCH (10:03)
[2019-10-17] MEDS: risperiDONE 1 MG TABLET PO SCH ×2 (10:26→22:09)
--- NOTE | 2019-10-17 11:58 | EKG ---
Test Reason : Blood Pressure : / mmHG Vent. Rate : 059 BPM Atrial Rate : 059 BPM P-R Int : 128 ms QRS Dur : 092 ms QT Int : 420 ms P-R-T Axes : 049 064 037 degrees QTc Int : 415 ms SINUS BRADYCARDIA WHEN COMPARED WITH ECG OF 15-MAY-2019 16:19, NO SIGNIFICANT CHANGE WAS FOUND Confirmed by KWAKU ACEVEDO MD ([id number]) on 10/17/2019 11:58:18 AM Referred By: Confirmed By:KWAKU ACEVEDO MD
--- NOTE | 2019-10-17 14:16 | PN ---
BHS COWS - Scale Resting Pulse: 0= [place] 80 or Below Sweatin= No chills or Flushing Restless Observation: 0= Sits Still Pupil Size: 1= Pupils >than Normal Bone or Joint Aches: 1= Mild Discomfort Runny Nose/ Eye Tearin= None GI Upset > 30mins: 0= None Tremor Observation of Outstretched Hands: 0= None Yawning Observation: 0= None Anxiety or Irritability: 1=Feels Anxious/Irritable Goose Flesh Skin: 3=Piloerection COWS Score: 6 BHS Progress Note (SOAP) Subjective: 19 years old male admitted on 10/16/19 for opiate withdrawal sx management treating wtih methdone detox regiment poor appetite requests ensure health teaching on balance diet with exercise regularly request increase methadone dosage discuss medication assisted treatment program case discuss with counselor for MAT referral Objective: 10/17/19 14:15 Vital Signs Temperature 97.3 F L 10/17/19 10:00 Pulse Rate 50 L 10/17/19 10:00 Respiratory Rate 20 10/17/19 10:00 Blood Pressure 112/60 10/17/19 10:00 O2 Sat by Pulse Oximetry (%) Laboratory Last Values WBC 7.4 K/mm3 (4.0-10.0) 10/17/19 07:30 RBC 4.51 M/mm3 (4.00-5.60) 10/17/19 07:30 Hgb 13.5 GM/dL (11.7-16.9) 10/17/19 07:30 Hct 38.5 % (35.4-49) 10/17/19 07:30 MCV 85.4 fl (80-96) 10/17/19 07:30 MCH 29.9 pg (25.7-33.7) 10/17/19 07:30 MCHC 35.0 g/dl (32.0-35.9) 10/17/19 07:30 RDW 12.8 % (11.9-15.9) 10/17/19 07:30 Plt Count 256 K/MM3 (134-434) 10/17/19 07:30 MPV 7.8 fl (7.5-11.1) 10/17/19 07:30 Sodium 140 mmol/L (136-145) 10/17/19 07:30 Potassium 3.9 mmol/L (3.5-5.1) 10/17/19 07:30 Chloride 105 mmol/L (98-107) 10/17/19 07:30 Carbon Dioxide 31 mmol/L (21-32) 10/17/19 07:30 Anion Gap 4 MMOL/L (8-16) L 10/17/19 07:30 BUN 11.7 mg/dL (7-18) 10/17/19 07:30 Creatinine 1.2 mg/dL (0.55-1.3) 10/17/19 07:30 Est GFR (CKD-EPI)AfAm 99.58 10/17/19 07:30 Est GFR (CKD-EPI)NonAf 85.92 10/17/19 07:30 Random Glucose 86 mg/dL (74-106) 10/17/19 07:30 Calcium 8.8 mg/dL (8.5-10.1) 10/17/19 07:30 Total Bilirubin 1.4 mg/dL (0.2-1) H 10/17/19 07:30 AST 21 U/L (15-37) 10/17/19 07:30 ALT 28 U/L (13-61) 10/17/19 07:30 Alkaline Phosphatase 64 U/L (45-117) 10/17/19 07:30 Total Protein 6.4 g/dl (6.4-8.2) 10/17/19 07:30 Albumin 3.8 g/dl (3.4-5.0) 10/17/19 07:30 RPR Titer Nonreactive (NONREACTIVE) 10/17/19 07:30 HIV 1&2 Antibody Screen Negative 10/17/19 07:30 HIV P24 Antigen Negative 10/17/19 07:30 lab noted Assessment: 10/17/19 14:15 opiate withdrawal Plan: methadone regiment
[2019-10-17] MEDS: hydrOXYzine PAMOATE 50 MG CAPSULE (FP) PO PRN (17:34)
[2019-10-17] MEDS: THIAMINE HCL 100 MG TABLET (FP) PO SCH (22:09)
[2019-10-18] MEDS ORDERED: METHADONE HCL 10 MG TABLET (FOR DETOX USE ONLY) PO ONE (10:00)
[2019-10-18] MEDS: PRENATAL VITAMINS W/ FOLIC ACID TABLET (FP) PO SCH (10:22)
[2019-10-18] MEDS: METHOCARBAMOL 500 MG TABLET PO PRN (10:22)
[2019-10-18] MEDS: risperiDONE 1 MG TABLET PO SCH ×2 (10:22→22:18)
[2019-10-18] MEDS: NICOTINE 21 MG/24 HOURS TOPICAL PATCH TD SCH (10:22)
--- NOTE | 2019-10-18 10:36 | PN ---
BHS COWS - Scale Resting Pulse: 0= [place] 80 or Below Sweatin= No chills or Flushing Restless Observation: 0= Sits Still Pupil Size: 0= Normal to Room Light Bone or Joint Aches: 1= Mild Discomfort Runny Nose/ Eye Tearin= None GI Upset > 30mins: 1= Stomach Cramp Tremor Observation of Outstretched Hands: 1= Tremor [place], Not Seen Yawning Observation: 1= 1-2x During Session Anxiety or Irritability: 0= None Goose Flesh Skin: 0=Smooth Skin COWS Score: 4 BHS Progress Note (SOAP) Subjective: 19 years old male admitted on 10/16/19 for opiate withdrawal sx management treating with methadone detox regiment feeling better today ate small amount of breakfast resting in bed comfortably ensure supplement as satisfaction encourage physical activities to groups and meetings for behavior and psychosocial therapies Objective: 10/18/19 10:41 Vital Signs Temperature 97.1 F L 10/18/19 08:34 Pulse Rate 52 L 10/18/19 08:34 Respiratory Rate 18 10/18/19 08:34 Blood Pressure 144/78 10/18/19 08:34 O2 Sat by Pulse Oximetry (%) Laboratory Last Values WBC 7.4 K/mm3 (4.0-10.0) 10/17/19 07:30 RBC 4.51 M/mm3 (4.00-5.60) 10/17/19 07:30 Hgb 13.5 GM/dL (11.7-16.9) 10/17/19 07:30 Hct 38.5 % (35.4-49) 10/17/19 07:30 MCV 85.4 fl (80-96) 10/17/19 07:30 MCH 29.9 pg (25.7-33.7) 10/17/19 07:30 MCHC 35.0 g/dl (32.0-35.9) 10/17/19 07:30 RDW 12.8 % (11.9-15.9) 10/17/19 07:30 Plt Count 256 K/MM3 (134-434) 10/17/19 07:30 MPV 7.8 fl (7.5-11.1) 10/17/19 07:30 Sodium 140 mmol/L (136-145) 10/17/19 07:30 Potassium 3.9 mmol/L (3.5-5.1) 10/17/19 07:30 Chloride 105 mmol/L (98-107) 10/17/19 07:30 Carbon Dioxide 31 mmol/L (21-32) 10/17/19 07:30 Anion Gap 4 MMOL/L (8-16) L 10/17/19 07:30 BUN 11.7 mg/dL (7-18) 10/17/19 07:30 Creatinine 1.2 mg/dL (0.55-1.3) 10/17/19 07:30 Est GFR (CKD-EPI)AfAm 99.58 10/17/19 07:30 Est GFR (CKD-EPI)NonAf 85.92 10/17/19 07:30 Random Glucose 86 mg/dL (74-106) 10/17/19 07:30 Calcium 8.8 mg/dL (8.5-10.1) 10/17/19 07:30 Total Bilirubin 1.4 mg/dL (0.2-1) H 10/17/19 07:30 AST 21 U/L (15-37) 10/17/19 07:30 ALT 28 U/L (13-61) 10/17/19 07:30 Alkaline Phosphatase 64 U/L (45-117) 10/17/19 07:30 Total Protein 6.4 g/dl (6.4-8.2) 10/17/19 07:30 Albumin 3.8 g/dl (3.4-5.0) 10/17/19 07:30 RPR Titer Nonreactive (NONREACTIVE) 10/17/19 07:30 HIV 1&2 Antibody Screen Negative 10/17/19 07:30 HIV P24 Antigen Negative 10/17/19 07:30 lab noted Assessment: 10/18/19 10:41 opiate withdrawal Plan: methadone regiment
[2019-10-18] MEDS ORDERED: cloNIDine HCL 0.1 MG TABLET PO PRN (12:01)
[2019-10-18] MEDS: hydrOXYzine PAMOATE 50 MG CAPSULE (FP) PO PRN (18:09)
[2019-10-18] MEDS: THIAMINE HCL 100 MG TABLET (FP) PO SCH (22:18)
[2019-10-18] MEDS: MELATONIN 5 MG TABLETS PO PRN (22:18)
--- NOTE | 2019-10-19 09:51 | PN ---
BHS COWS - Scale Resting Pulse: 1= [place] [id number] Sweatin= No chills or Flushing Restless Observation: 0= Sits Still Pupil Size: 1= Pupils >than Normal Bone or Joint Aches: 0= None Runny Nose/ Eye Tearin= None GI Upset > 30mins: 0= None Tremor Observation of Outstretched Hands: 0= None Yawning Observation: 0= None Anxiety or Irritability: 1=Feels Anxious/Irritable Goose Flesh Skin: 0=Smooth Skin COWS Score: 3 BHS Progress Note (SOAP) Subjective: 19 years old male admitted on 10/16/19 for opiate withdrawal sx management treating with methadone detox regiment ate breakfast resting in bed comfortably patient prefers returning to [facility] for aftercare encourage the patient to attend therapeutic groups and meetings while in detox Objective: 10/19/19 09:53 Vital Signs Temperature 96.8 F L 10/19/19 08:45 Pulse Rate 92 H 10/19/19 08:45 Respiratory Rate 20 10/19/19 08:45 Blood Pressure 128/75 10/19/19 08:45 O2 Sat by Pulse Oximetry (%) Laboratory Last Values WBC 7.4 K/mm3 (4.0-10.0) 10/17/19 07:30 RBC 4.51 M/mm3 (4.00-5.60) 10/17/19 07:30 Hgb 13.5 GM/dL (11.7-16.9) 10/17/19 07:30 Hct 38.5 % (35.4-49) 10/17/19 07:30 MCV 85.4 fl (80-96) 10/17/19 07:30 MCH 29.9 pg (25.7-33.7) 10/17/19 07:30 MCHC 35.0 g/dl (32.0-35.9) 10/17/19 07:30 RDW 12.8 % (11.9-15.9) 10/17/19 07:30 Plt Count 256 K/MM3 (134-434) 10/17/19 07:30 MPV 7.8 fl (7.5-11.1) 10/17/19 07:30 Sodium 140 mmol/L (136-145) 10/17/19 07:30 Potassium 3.9 mmol/L (3.5-5.1) 10/17/19 07:30 Chloride 105 mmol/L (98-107) 10/17/19 07:30 Carbon Dioxide 31 mmol/L (21-32) 10/17/19 07:30 Anion Gap 4 MMOL/L (8-16) L 10/17/19 07:30 BUN 11.7 mg/dL (7-18) 10/17/19 07:30 Creatinine 1.2 mg/dL (0.55-1.3) 10/17/19 07:30 Est GFR (CKD-EPI)AfAm 99.58 10/17/19 07:30 Est GFR (CKD-EPI)NonAf 85.92 10/17/19 07:30 Random Glucose 86 mg/dL (74-106) 10/17/19 07:30 Calcium 8.8 mg/dL (8.5-10.1) 10/17/19 07:30 Total Bilirubin 1.4 mg/dL (0.2-1) H 10/17/19 07:30 AST 21 U/L (15-37) 10/17/19 07:30 ALT 28 U/L (13-61) 10/17/19 07:30 Alkaline Phosphatase 64 U/L (45-117) 10/17/19 07:30 Total Protein 6.4 g/dl (6.4-8.2) 10/17/19 07:30 Albumin 3.8 g/dl (3.4-5.0) 10/17/19 07:30 RPR Titer Nonreactive (NONREACTIVE) 10/17/19 07:30 HIV 1&2 Antibody Screen Negative 10/17/19 07:30 HIV P24 Antigen Negative 10/17/19 07:30 lab noted Assessment: 10/19/19 09:53 opiate withdrawal Plan: methadone regiment
[2019-10-19] MEDS ORDERED: METHADONE HCL 10 MG TABLET (FOR DETOX USE ONLY) ONE (09:53)
[2019-10-19] MEDS ORDERED: METHADONE HCL 5 MG TABLET (FOR DETOX USE ONLY) ONE (09:53)
[2019-10-19] MEDS ORDERED: METHADONE (DETOX) 10 MG, METHADONE (DETOX) 5 MG PO ONE (10:00)
[2019-10-19] MEDS: PRENATAL VITAMINS W/ FOLIC ACID TABLET (FP) PO SCH (10:25)
[2019-10-19] MEDS: risperiDONE 1 MG TABLET PO SCH ×2 (10:26→22:03)
[2019-10-19] MEDS: NICOTINE 21 MG/24 HOURS TOPICAL PATCH TD SCH (10:28)
[2019-10-19] MEDS: hydrOXYzine PAMOATE 50 MG CAPSULE (FP) PO PRN (10:30)
[2019-10-19] MEDS: THIAMINE HCL 100 MG TABLET (FP) PO SCH (22:03)
[2019-10-19] MEDS: MELATONIN 5 MG TABLETS PO PRN (22:03)
[2019-10-20] MEDS ORDERED: METHADONE HCL 10 MG TABLET (FOR DETOX USE ONLY) PO ONE (10:00)
[2019-10-20] MEDS: risperiDONE 1 MG TABLET PO SCH (10:05)
[2019-10-20] MEDS: PRENATAL VITAMINS W/ FOLIC ACID TABLET (FP) PO SCH (10:05)
[2019-10-20] MEDS: NICOTINE 21 MG/24 HOURS TOPICAL PATCH TD SCH (10:05)
[2019-10-20] MEDS: METHOCARBAMOL 500 MG TABLET PO PRN (10:05)
--- NOTE | 2019-10-20 11:04 | PN ---
BHS COWS - Scale Resting Pulse: 0= [place] 80 or Below Sweatin= No chills or Flushing Restless Observation: 0= Sits Still Pupil Size: 0= Normal to Room Light Bone or Joint Aches: 1= Mild Discomfort Runny Nose/ Eye Tearin= None GI Upset > 30mins: 0= None Tremor Observation of Outstretched Hands: 0= None Yawning Observation: 0= None Anxiety or Irritability: 1=Feels Anxious/Irritable Goose Flesh Skin: 0=Smooth Skin COWS Score: 2 BHS Progress Note (SOAP) Subjective: 19 years old male admitted on 10/16/19 for opiate withdrawal sx management treating with methadone detox regiment feeling better today discuss medication assisted treatment program encourage the patient to attend behavior and psychosocial therapies groups and meetings as part of opiate addiction recovery Objective: 10/20/19 11:04 Vital Signs Temperature 98.3 F 10/20/19 08:39 Pulse Rate 75 10/20/19 08:39 Respiratory Rate 18 10/20/19 08:39 Blood Pressure 116/81 10/20/19 08:39 O2 Sat by Pulse Oximetry (%) Vital Signs Laboratory Last Values WBC 7.4 K/mm3 (4.0-10.0) 10/17/19 07:30 RBC 4.51 M/mm3 (4.00-5.60) 10/17/19 07:30 Hgb 13.5 GM/dL (11.7-16.9) 10/17/19 07:30 Hct 38.5 % (35.4-49) 10/17/19 07:30 MCV 85.4 fl (80-96) 10/17/19 07:30 MCH 29.9 pg (25.7-33.7) 10/17/19 07:30 MCHC 35.0 g/dl (32.0-35.9) 10/17/19 07:30 RDW 12.8 % (11.9-15.9) 10/17/19 07:30 Plt Count 256 K/MM3 (134-434) 10/17/19 07:30 MPV 7.8 fl (7.5-11.1) 10/17/19 07:30 Sodium 140 mmol/L (136-145) 10/17/19 07:30 Potassium 3.9 mmol/L (3.5-5.1) 10/17/19 07:30 Chloride 105 mmol/L (98-107) 10/17/19 07:30 Carbon Dioxide 31 mmol/L (21-32) 10/17/19 07:30 Anion Gap 4 MMOL/L (8-16) L 10/17/19 07:30 BUN 11.7 mg/dL (7-18) 10/17/19 07:30 Creatinine 1.2 mg/dL (0.55-1.3) 10/17/19 07:30 Est GFR (CKD-EPI)AfAm 99.58 10/17/19 07:30 Est GFR (CKD-EPI)NonAf 85.92 10/17/19 07:30 Random Glucose 86 mg/dL (74-106) 10/17/19 07:30 Calcium 8.8 mg/dL (8.5-10.1) 10/17/19 07:30 Total Bilirubin 1.4 mg/dL (0.2-1) H 10/17/19 07:30 AST 21 U/L (15-37) 10/17/19 07:30 ALT 28 U/L (13-61) 10/17/19 07:30 Alkaline Phosphatase 64 U/L (45-117) 10/17/19 07:30 Total Protein 6.4 g/dl (6.4-8.2) 10/17/19 07:30 Albumin 3.8 g/dl (3.4-5.0) 10/17/19 07:30 RPR Titer Nonreactive (NONREACTIVE) 10/17/19 07:30 HIV 1&2 Antibody Screen Negative 10/17/19 07:30 HIV P24 Antigen Negative 10/17/19 07:30 lab noted Assessment: 10/20/19 11:05 opiate withdrawal Plan: methadone regiment
[2019-10-20 13:10] VITALS: BP 116/71; PULSE 81; TEMP 97.5
--- NOTE | 2019-10-20 14:26 | DS ---
[facility] Detox Discharge Summary Admission Date: 10/16/19 Discharge Date: 10/20/19 - History Present History: Opioid Dependence Additional Comments: 19 years old male admitted on 10/16/19 for opiate withdrawal sx management treated with methadone detox regiment feeling better ate lunch showered prefers to leave the detox unit today one day early as estimated discharge date Mr Browne is alert oriented x 3 speech clearly coherently ambulating steady gait seen by psychiatrist resume risperidal and vistaril respiratory clear lungs bilaterally on auscultation extremities full range of motion skin warm and dry Pertinent Past History: time for discharge 32 minutes - Physical Exam Results Vital Signs: Vital Signs Temperature 97.5 F L 10/20/19 12:39 Pulse Rate 81 10/20/19 12:39 Respiratory Rate 18 10/20/19 12:39 Blood Pressure 116/71 10/20/19 12:39 O2 Sat by Pulse Oximetry (%) Pertinent Admission Physical Exam Findings: opiate withdrawal Vital Signs Temperature 97.5 F L 10/20/19 12:39 Pulse Rate 81 10/20/19 12:39 Respiratory Rate 18 10/20/19 12:39 Blood Pressure 116/71 10/20/19 12:39 O2 Sat by Pulse Oximetry (%) Laboratory Last Values WBC 7.4 K/mm3 (4.0-10.0) 10/17/19 07:30 RBC 4.51 M/mm3 (4.00-5.60) 10/17/19 07:30 Hgb 13.5 GM/dL (11.7-16.9) 10/17/19 07:30 Hct 38.5 % (35.4-49) 10/17/19 07:30 MCV 85.4 fl (80-96) 10/17/19 07:30 MCH 29.9 pg (25.7-33.7) 10/17/19 07:30 MCHC 35.0 g/dl (32.0-35.9) 10/17/19 07:30 RDW 12.8 % (11.9-15.9) 10/17/19 07:30 Plt Count 256 K/MM3 (134-434) 10/17/19 07:30 MPV 7.8 fl (7.5-11.1) 10/17/19 07:30 Sodium 140 mmol/L (136-145) 10/17/19 07:30 Potassium 3.9 mmol/L (3.5-5.1) 10/17/19 07:30 Chloride 105 mmol/L (98-107) 10/17/19 07:30 Carbon Dioxide 31 mmol/L (21-32) 10/17/19 07:30 Anion Gap 4 MMOL/L (8-16) L 10/17/19 07:30 BUN 11.7 mg/dL (7-18) 10/17/19 07:30 Creatinine 1.2 mg/dL (0.55-1.3) 10/17/19 07:30 Est GFR (CKD-EPI)AfAm 99.58 10/17/19 07:30 Est GFR (CKD-EPI)NonAf 85.92 10/17/19 07:30 Random Glucose 86 mg/dL (74-106) 10/17/19 07:30 Calcium 8.8 mg/dL (8.5-10.1) 10/17/19 07:30 Total Bilirubin 1.4 mg/dL (0.2-1) H 10/17/19 07:30 AST 21 U/L (15-37) 10/17/19 07:30 ALT 28 U/L (13-61) 10/17/19 07:30 Alkaline Phosphatase 64 U/L (45-117) 10/17/19 07:30 Total Protein 6.4 g/dl (6.4-8.2) 10/17/19 07:30 Albumin 3.8 g/dl (3.4-5.0) 10/17/19 07:30 RPR Titer Nonreactive (NONREACTIVE) 10/17/19 07:30 HIV 1&2 Antibody Screen Negative 10/17/19 07:30 HIV P24 Antigen Negative 10/17/19 07:30 lab noted - Treatment Hospital Course: Detox Protocol Followed, Detoxed Safely, Responded well, Discharged Condition Good, Rehab Referral Accepted Patient has Accepted a Rehab Referral to: Create rehab facility in [facility] - Medication Discharge Medications: Ambulatory Orders Risperidone [Risperdal -] 1 mg PO BID #60 tablet 05/20/19 Naloxone HCl [Narcan] 4 mg NS ASDIR PRN #1 spray 10/18/19 - Diagnosis (1) Substance induced mood disorder Current Visit: Yes Status: Suspected (2) Nicotine addiction Current Visit: Yes Status: Acute Qualifiers: Nicotine product type: cigarettes Substance use status: in withdrawal Qualified Code(s): F17.213 - Nicotine dependence, cigarettes, with withdrawal (3) Opioid use disorder, moderate, in early remission Current Visit: Yes Status: Acute (4) Nicotine use disorder Current Visit: Yes Status: Acute - AMA Did Patient Leave Against Medical Advice: No COWS (PN) - Opiate Withdrawal Resting Pulse: 1= [place] 81-100 Sweatin= No chills or Flushing Restless Observation: 0= Sits Still Pupil Size: 0= Normal to Room Light Bone or Joint Aches: 0= None Runny Nose/ Eye Tearin= None GI Upset > 30mins: 0= None Tremor Observation of Outstretched Hands: 0= None Yawning Observation: 0= None Anxiety or Irritability: 1=Feels Anxious/Irritable Goose Flesh Skin: 0=Smooth Skin COWS Score: 2
[2019-10-21] MEDS ORDERED: METHADONE HCL 5 MG TABLET (FOR DETOX USE ONLY) PO ONE (06:00)
== END 2019-10-20 14:15 | disposition home or self-care (01) | DRG 773 ==
LOC: YASAS 22:50 → Y3N 23:37
PROVIDERS: ADMIT Allergy & Immunology; ATTEND Allergy & Immunology
PROC: HZ2ZZZZ Detoxification Services for Substance Abuse Treatment (ICD-10-PCS; principal; 2019-10-16)
DX: F11.23 Opioid dependence with withdrawal (principal); F14.20 Cocaine dependence, uncomplicated; F17.210 Nicotine dependence, cigarettes, uncomplicated; F20.9 Schizophrenia, unspecified; F19.24 Other psychoactive substance dependence with psychoactive substance-induced mood disorder; F39 Unspecified mood [affective] disorder; F43.10 Post-traumatic stress disorder, unspecified; F41.9 Anxiety disorder, unspecified
CPT/HCPCS: 36415; 80053; 85027; 86593; 87389; 93005; 93010; J2794

== ENCOUNTER 2020-05-03 13:14 | Inpatient (IN) | payer OTHER ==
--- NOTE | 2020-05-03 13:36 | BHS.RME ---
Substance Use & Tx History - Substance Use History Other Opiates/Synthetics Substance amount: LegUP 10-325 - 10tabs Frequency of use: Daily Substance route: Oral Date of Last Use: 05/03/20 Cocaine- Powder Substance amount: $20 Frequency of use: Daily Substance route: Inhalation (ex: sniffing or snorting) Date of Last Use: 05/03/20 Physical/Psych/Mental Status - Behavior General Behavior: Increased activity (restlessness, agitation) Eye Contact: Normal - Cooperativeness Cooperativeness: Cooperative - Thinking Thought Processes: Tight, Logical, Goal Directed Thought content: Future oriented - Physical Health Problems Is patient presently having any pain?: No Does patient presently have any injuries (include location): No Does patient currently have a fever: No Is patient : No COWS - Scale Resting Pulse: 0= [place] 80 or Below Sweatin= Beads of Sweat on Face Restless Observation: 1= Difficult to Sit Still Pupil Size: 1= Pupils >than Normal Bone or Joint Aches: 2= Severe Diffuse Aches Runny Nose/ Eye Tearin= Runny Nose/Eyes GI Upset > 30mins: 3= Vomiting/Diarrhea Tremor Observation: 1= Tremor [place], Not Seen Yawning Observation: 1= 1-2x During Session Anxiety or Irritability: 2=Irritable/Anxious Goose Flesh Skin: 3=Piloerection COWS Score: 19
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
[2020-05-03 14:07] VITALS: BMI 31.1
[2020-05-03] MEDS ORDERED: MAGNESIUM CITRATE 300 ML BOTTLE PO PRN (14:07)
[2020-05-03] MEDS ORDERED: MAG HYDROX/AL HYDROX/SIMETH 30 ML UNIT-DOSE CUP PO PRN (14:07)
[2020-05-03] MEDS ORDERED: ACETAMINOPHEN 325 MG TABLET (FP) PO PRN ×2 (14:07)
[2020-05-03] MEDS ORDERED: MENTHOL/PHENOL 1 EACH UD MM PRN (14:07)
[2020-05-03] MEDS ORDERED: ONDANSETRON *ODT* 4 MG TABLET SL PRN (14:07)
[2020-05-03] MEDS ORDERED: BISMUTH SUBSALICYLATE 262 MG/15 ML BTL PO PRN (14:07)
[2020-05-03] MEDS ORDERED: chlordiazePOXIDE HCL 25 MG CAPSULE PO PRN (14:07)
[2020-05-03] MEDS ORDERED: NICOTINE POLACRILEX 2 MG GUM BUC PRN (14:07)
[2020-05-03] MEDS ORDERED: IBUPROFEN 400 MG TABLET (FP) PO PRN (14:07)
[2020-05-03] MEDS ORDERED: MAGNESIUM HYDROX 2400MG/30ML ORAL SUSPENSION 30 ML CUP PO PRN (14:07)
--- NOTE | 2020-05-03 15:29 | PN ---
Teaching Attending Note Name of Resident: Carlos Workman ATTENDING PHYSICIAN STATEMENT I saw and evaluated the patient. I reviewed the resident's note and discussed the case with the resident. I agree with the resident's findings and plan as documented. SUBJECTIVE: OBJECTIVE: ASSESSMENT AND PLAN: Patient is a 19 y.o. M no significant PMHx presenting to [facility] for detox. Pt. was examined in the room and is alert in no acute distres. Patient drug use consists of percocet 100mg daily PO and cocaine 20 mg a day intranasal. Imp. 1. Opioid use disorder, withdrawal 2. Cocaine use disorder Plan 1. Methadone detox protocol
[2020-05-03] MEDS ORDERED: METHADONE HCL 10 MG TABLET (FOR DETOX USE ONLY) PO ONE (15:31)
[2020-05-03] MEDS ORDERED: cloNIDine HCL 0.1 MG TABLET PO PRN (15:31)
[2020-05-03] MEDS ORDERED: chlordiazePOXIDE HCL 25 MG CAPSULE PO SCH (17:00)
[2020-05-03] MEDS: hydrOXYzine PAMOATE 25 MG CAPSULE (FP) PO SCH ×2 (17:10→22:20)
--- OUTSIDE RECORDS SUMMARY | 2020-05-03 18:02 | XMS ---
:2000 Author Organization [facility] Care Team Providers Name Role Phone ED STAFF PHYSICIAN, STAFF Unavailable Unavailable KAREEM RUFFIN Unavailable Unavailabl CRIS Calhoun MD Unavailable Unavailable Lara Unavailable ED STAFF PHYSICIAN Unavailable Unavailable MD FANY Unavailable Unavailable Re-disclosure Warning The records that you are about to access may contain information from federally- assisted alcohol or drug abuse programs. If such information is present, then the following federally mandated warning applies: This information has been disclosed to you from records protected by federal confidentiality rules (42 CFR part 2). The federal rules prohibit you from making any further disclosure of this information unless further disclosure is expressly permitted by the written consent of the person to whom it pertains or as otherwise permitted by 42 CFR part 2. A general authorization for the release of medical or other information is NOT sufficient for this purpose. The Federal rules restrict any use of the information to criminally investigate or prosecute any alcohol or drug abuse patient.The records that you are about to access may contain highly sensitive health information, the redisclosure of which is protected by Article 27-F of the [facility] Public Health law. If you continue you may haveaccess to information: Regarding HIV / AIDS; Provided by facilities licensed or operated by the [facility] Office of Mental Health; or Provided by the [facility] Office for People With Developmental Disabilities. If such information is present, then the following [facility] mandated warning applies: This information has been disclosed to you from confidential records which are protected by state law. State law prohibits you from making any further disclosure of this information without the specific written consent of the person to whom it pertains, or as otherwise permitted by law. Any unauthorized further disclosure in violation of state law may result in a fine or alf sentence or both. A general authorization for the release of medical or other information is NOT sufficient authorization for further disclosure. Allergies and Adverse Reactions Type Description Substance Reaction Status Data Source(s ) SYSTEMIC NO KNOWN ALLERGIES NO KNOWN ALLERGIES [facility] Encounters Encounter Providers Location Date Indications Data Source(s ) Outpatient Attender: Karsten 02/16/2020 Felisa Lara 01:34:13 PM [facility] EDT - 02/16/2020 05:53:19 PM EDT Patient admitted. Emergency Attender: ED STAFF H 11/13/2019 06:55:00 AM [facility] PHYSICIANAttender: STAFF ED EDT - 11/13/2019 [facility] STAFF PHYSICIANAdmitter: ED 09:04:00 PM EDT STAFF PHYSICIAN Patient discharged. Inpatient Attender: CRIS JI1D 10/29[facility]2019 [facility] - [address] [place] [address] 10:20:00 PM EDT Patient discharged. Outpatient ST 10/28/2019 11:12:00 AM EDT - [address] [place] [address] 10:20:00 PM EDT Patient discharged. Inpatient Attender: KAREEM Jones-HAL5 10/26/2019 12:27:00 [facility] NIESHA EDT - 10/29/2019 [facility] NAJMAttender: STAFF ED 11:15:00 AM EDT STAFF PHYSICIANAdmitter: KAREEM SERNARReferrer: KAREEM GARNICA Patient discharged. Immunizations Vaccine Date Status Description Data Source(s) pneumococcal 10/29/2019 completed [facility] edical polysaccharide PPV23 09:58:00 AM EDT [facility] in 2011. IIV4 10/28/2019 completed [facility] 02:45:00 PM EDT Center meningococcal 12/26/2015 completed Menactra-Meningococcal 12/26/2015, The MCV4P 12:00:00 AM polysaccharide (groups 11/10/2009 [facility] EDT A,C,Y and W-135) For Family diphtheria toxoid He alth conjugate vaccine (MCV4) New in 2011. 06/25/2013 completed Influenza, Injectable, 06/25/2013 The IIV4 12:00:00 AM Quadrivalent (IIV4), [facility] EST Preservative Free Fo r [facility] This code 08/07/2012 completed Hepatitis B 08/07/2012, The applies to any 12:00:00 AM Vaccine,pediatric/adoles 07/07/20 12, [facility] standard EST cent Dosage 11/11/2003, For [facility] pediatric 2000 Health formulation of Hepatitis B vaccine. It should not be used for the 2-dose hepatitis B schedule for adolescents (11-15 year olds). It requires Merck's Recombivax HB adult formulation. Use code 43 for that vaccine. This code is 07/07/2012 completed Fluvax 07/07/2012, The being retired. 12:00:00 AM 11/10/2009, I nstitute It will still EST 06/24/2008, For Family be found in 07/01/2007, Health older 06/24/2006, immunization 08/05/2005, records. It 06/04/2004 included both preservative free and non-preservativ e free. This code 07/07/2012 completed Hepatitis B 08/07/2012, The applies to any 12:00:00 AM Vaccine,pediatric/adoles 07/07/20 12, [facility] standard EST cent Dosage 11/11/2003, For [facility] pediatric 2000 Health formulation of Hepatitis B vaccine. It should not be used for the 2-dose hepatitis B schedule for adolescents (11-15 year olds). It requires Merck's Recombivax HB adult formulation. Use code 43 for that vaccine. HPV, 01/16/2012 completed Human papilloma virus 01/16/2012, The quadrivalent 12:00:00 AM vaccine,quadrivalent-3 08/29/2011, [facility] EDT dose 05/16/2011 For [facility] HPV, 08/29/2011 completed Human papilloma virus 01/16/2012, The quadrivalent 12:00:00 AM vaccine,quadrivalent-3 08/29/2011, [facility] EST dose 05/16/2011 For [facility] IIV3. This is 05/16/2011 completed Influenza, Seasonal, 05/16/2011 The one of two 12:00:00 AM Injectable [facility] [place] codes replacing EDT For Family CVX 15, which Health is being retired. HPV, 05/16/2011 completed Human papilloma virus 01/16/2012, The quadrivalent 12:00:00 AM vaccine,quadrivalent-3 08/29/2011, [facility] EDT dose 05/16/2011 For [facility] Health influenza, 05/28/2010 completed Influenza Virus 05/28/2010 T he whole 12:00:00 AM Vaccine,whole Virus [facility] EDT For [facility] This code is 11/10/2009 completed Fluvax 07/07/2012, The being retired. 12:00:00 AM 11/10/2009, I nstitute It will still EDT 06/24/2008, For Family be found in 07/01/2007, Health older 06/24/2006, immunization 08/05/2005, records. It 06/04/2004 included both preservative free and non-preservativ e free. meningococcal 11/10/2009 completed Menactra-Meningococcal 12/26/2015, The MCV4P 12:00:00 AM polysaccharide (groups 11/10/2009 [facility] EDT A,C,Y and W-135) For Family diphtheria toxoid He alth conjugate vaccine (MCV4) Tdap 11/10/2009 completed Tdap 11/10/2009 The 12:00:00 AM Institut e EDT For [facility] Novel 07/10/2009 completed H1N1- Influenza Virus 07/10/2009 The influenza-H1N1- 12:00:00 AM Vaccine,split virus ,3 [facility] 09 EST yearsmuscular For [facility] This code is 06/24/2008 completed Fluvax 07/07/2012, The being retired. 12:00:00 AM 11/10/2009, I nstitute It will still EST 06/24/2008, For Family be found in 07/01/2007, Health older 06/24/2006, immunization 08/05/2005, records. It 06/04/2004 included both preservative free and non-preservativ e free. varicella 01/22/2008 completed Varicella 01/22/2008, The 12:00:00 AM 01/04/2000 Instit[facility] te EDT For Family Health This code is 07/01/2007 completed Fluvax 07/07/2012, The being retired. 12:00:00 AM 11/10/2009, I nstitute It will still EST 06/24/2008, For Family be found in 07/01/2007, Health older 06/24/2006, immunization 08/05/2005, records. It 06/04/2004 included both preservative free and non-preservativ e free. Hep A, 04/08/2007 completed Hepatitis A Vaccine 04/08/2007, The ped/adol, 2 12:00:00 AM Ped/adol 2 Dose Indira 05/26/2006 [facility] dose EDT For [facility] This code is 06/24/2006 completed Fluvax 07/07/2012, The being retired. 12:00:00 AM 11/10/2009, I nstitute It will still EST 06/24/2008, For Family be found in 07/01/2007, Health older 06/24/2006, immunization 08/05/2005, records. It 06/04/2004 included both preservative free and non-preservativ e free. Hep A, 05/26/2006 completed Hepatitis A Vaccine 04/08/2007, The ped/adol, 2 12:00:00 AM Ped/adol 2 Dose Indira 05/26/2006 [facility] dose EDT For [facility] This code is 08/05/2005 completed Fluvax 07/07/2012, The being retired. 12:00:00 AM 11/10/2009, I nstitute It will still EST 06/24/2008, For Family be found in 07/01/2007, Health older 06/24/2006, immunization 08/05/2005, records. It 06/04/2004 included both preservative free and non-preservativ e free. This code is 06/04/2004 completed Fluvax 07/07/2012, The being retired. 12:00:00 AM 11/10/2009, I nstitute It will still EDT 06/24/2008, For Family be found in 07/01/2007, Health older 06/24/2006, immunization 08/05/2005, records. It 06/04/2004 included both preservative free and non-preservativ e free. This code 11/11/2003 completed Hepatitis B 08/07/2012, The applies to any 12:00:00 AM Vaccine,pediatric/adoles 07/07/20 12, [facility] standard EST cent Dosage 11/11/2003, For [facility] pediatric 2000 Health formulation of Hepatitis B vaccine. It should not be used for the 2-dose hepatitis B schedule for adolescents (11-15 year olds). It requires Merck's Recombivax HB adult formulation. Use code 43 for that vaccine. IPV 07/13/2003 completed IPV 07/13/2003, The 12:00:00 AM 05/17/2003, [facility] [place] EST 03/08/2003, For Fami ly 2000 Health pneumococcal 07/13/2003 completed PREVNAR (PCV7-Valent 07/13/2003, The conjugate PCV 7 12:00:00 AM Pneumococcal Conjugate 200 3, [facility] EST Vaccine) 03/08/2003, For Fami ly 11/27/2000 Health Hib, 07/13/2003 completed Hib, Unspecified 07/13/2003 T he unspecified 12:00:00 AM Formulation Inst itute formulation EST For [facility] Health DTaP 07/13/2003 completed DTaP- Diphtheria tetanus 07/13/2003, The 12:00:00 AM toxoids and acellular 05/17/2003, [facility] EST pertussis vaccine 03/08/2003 or Family Health IPV 05/17/2003 completed IPV 07/13/2003, The 12:00:00 AM 05/17/2003, [facility] [place] EDT 03/08/2003, For Fami ly 2000 Health pneumococcal 05/17/2003 completed PREVNAR (PCV7-Valent 07/13/2003, The conjugate PCV 7 12:00:00 AM Pneumococcal Conjugate 200 3, [facility] EDT Vaccine) 03/08/2003, For Fami ly 11/27/2000 Health This vaccine 05/17/2003 completed Comvax - haemophilus 05/17/2003, The may still be in 12:00:00 AM influenzae type b and 03/08/2003 [facility] use until the EDT hepatitis b vaccine For Family [facility] on 04/05/16. DTaP 05/17/2003 completed DTaP- Diphtheria tetanus 07/13/2003, The 12:00:00 AM toxoids and acellular 05/17/2003, [facility] EDT pertussis vaccine 03/08/2003 F or Family Health IPV 03/08/2003 completed IPV 07/13/2003, The 12:00:00 AM 05/17/2003, [facility] [place] EDT 03/08/2003, For Fami ly 2000 Health pneumococcal 03/08/2003 completed PREVNAR (PCV7-Valent 07/13/2003, The conjugate PCV 7 12:00:00 AM Pneumococcal Conjugate 200 3, [facility] EDT Vaccine) 03/08/2003, For Fami ly 11/27/2000 Health This vaccine 03/08/2003 completed Comvax - haemophilus 05/17/2003, The may still be in 12:00:00 AM influenzae type b and 03/08/2003 [facility] use until the EDT hepatitis b vaccine For Family [facility] on 04/05/16. DTaP 03/08/2003 completed DTaP- Diphtheria tetanus 07/13/2003, The 12:00:00 AM toxoids and acellular 05/17/2003, [facility] EDT pertussis vaccine 03/08/2003 F or Family Health MMR 01/24/2003 completed MMR 01/24/2003, The 12:00:00 AM 10/15/1999 Institu te EDT For Family Health pneumococcal 11/27/2000 completed PREVNAR (PCV7-Valent 07/13/2003, The conjugate PCV 7 12:00:00 AM Pneumococcal Conjugate 200 3, [facility] EDT Vaccine) 03/08/2003, For Fami ly 11/27/2000 Health Hib (PRP-OMP) 11/27/2000 completed Haemophilus Influenzae 11/27/2000 The 12:00:00 AM Type B Vaccine,prp-omp [facility] EDT Conjugate For Family Health varicella 01/04/2000 completed Varicella 01/22/2008, The 12:00:00 AM 01/04/2000 Institu te EDT For Family Health MMR 10/15/1999 completed MMR 01/24/2003, The 12:00:00 AM 10/15/1999 Institu te EST For Family Health IPV 1998 completed IPV 07/13/2003, The 12:00:00 AM 05/17/2003, [facility] [place] EDT 03/08/2003, For Fami ly 2000 Health This code 1998 completed Hepatitis B 08/07/2012, The applies to any 12:00:00 AM Vaccine,pediatric/adoles 07/07/20 12, [facility] standard EST cent Dosage 11/11/2003, For [facility] pediatric 2000 Health formulation of Hepatitis B vaccine. It should not be used for the 2-dose hepatitis B schedule for adolescents (11-15 year olds). It requires Merck's Recombivax HB adult formulation. Use code 43 for that vaccine. Medications Medication Brand Start Product Dose Route Administrative Pharmacy [facility] Indications Reaction Description Data Name Date Form Instructions Instructions Source(s) Fluoxetine PROzac ORAL complet PROzac - 20 [facility] 20 MG Oral - 20 2019 Capsu ed MG ORAL Reji nts Capsule MG 12:00: le Capsule Hospita l [Prozac] ORAL 00 AM Capsul EDT e Buprenorphi Suboxo SUBLIN complet Subo xone - 4 [facility] ne 4 MG / ne - 4 2019 Film GUAL ed MG-1 MG Reji nts Naloxone 1 MG-1 12:00: SUBLINGUAL H ospital MG Oral MG 00 AM Film Strip SUBLIN EDT [Suboxone] GUAL Film quetiapine SEROqu ORAL complet SEROque l - [facility] 200 MG Oral el 2019 Table ed 200 MG ORAL [facility] Tablet 200 MG 12:00: t Tablet Hospita l [Seroquel] ORAL 00 AM Tablet EDT quetiapine SEROqu ORAL complet SEROque l - [facility] 300 MG Oral el 2019 Table ed 300 MG ORAL [facility] Tablet 300 MG 12:00: t Tablet Hospita l [Seroquel] ORAL 00 AM Tablet EDT Fluoxetine FLUoxe 1 complet Raul t 20 MG Oral rodríguez ed [facility] Capsule 20 mg Medical FLUoxetine Capsul Center 20 mg e, Capsule, Ordere Ordered By: d By: Deja Devi Pittsboromoon MDDirection St. s: 1 Chiki, capsule MDDire oral daily ctions : 1 capsul e oral daily quetiapine QUEtia 1 complet Raul t 100 MG Oral pine ed [facility] Tablet 100 mg Medical QUEtiapine Tablet Center 100 mg , Tablet, Ordere Ordered By: d By: Deja Devi Pittsboromoon MDDirection St. s: 1 tablet Chiki, oral daily MDDire on waking ctions : 1 tablet oral daily on waking NICOTINE 1 complet (NICODERM) ed Calvin 21 MG = 1 Medical PATCH Center Transdermal ONCE DAILY for 30 DaysDirecti ons: 1 patch transdermal daily fluticasone 1 complet [facility] propionate ed [facility] 50 Medical mcg/actuati Center on spray,suspe nsion, Ordered By: Deja Silva, MDDirection s: 1 spray nasal twice a day quetiapine QUEtia 1 complet Raul t 200 MG Oral pine ed [facility] Tablet 200 mg Medical QUEtiapine Tablet Center 200 mg , Tablet, Ordere Ordered By: d By: Deja Silva, moon MDDirection St. s: 1 tablet Chiki, oral daily MDDire at bedtime ctions : 1 tablet oral daily at bedtim e Insurance Providers Payer name Policy type Policy ID Covered Covered alliance party's Policy P dione / Coverage alliance party ID relationship to Dempsey Inf ormation type dempsey BEACON METROPLUS [id number] SP [id number] METRO PLUS [id number] Self [id number] 01 [id number] METROP[place]US W [id number] 01 [id number] METROP[place]US W [id number] 01 [id number] [facility] METROPOLITAN [id number] Self [id number] METRO PLUS SELF PAY 0000 Self 0000 MEDICAID INP [id number] Self [id number] [id number] METROPLUS W [id number] 01 [id number] [facility] METROPOLITAN [id number] Self [id number] METRO PLUS MEDICAID [id number] SP [id number] SELF PAY SP INSURANCE PENDING EXCHANGE Problems, Conditions, and Diagnoses Code Display Name Description Problem Type Effective Data Sour ce(s) Dates F17.200 Tobacco use Tobacco use [id number] 02/16/2020 [facility] disorder disorder 12:00:00 AM For Family EDT Health F17.200 Nicotine Nicotine Diagnosis 02/16/2020 The [facility] dependence, dependence, 03:52:12 PM For Family unspecified, unspecified, EDT Health uncomplicated uncomplicated Z23 Encounter for Encounter for Diagnosis 02/16/2020 The Inst itute immunization immunization 01:34:13 PM For Famil y EDT Health F19.90 Other psychoactive OTHER PSYCHOACTIVE Diagnosis 0 [facility] substance use, SUBSTANCE USE, 06:55:00 AM Medic al Center unspecified, UNSPECIFIED, EDT uncomplicated UNCOMPLICATED F11.20 Opioid dependence, OPIOID DEPENDENCE, Diagnosis 0 [facility] uncomplicated UNCOMPLICATED 11:15:00 AM Medical Center EDT F14.20 Cocaine COCAINE Diagnosis 10/26/2019 [facility] dependence, DEPENDENCE, 12:27:[address] uncomplicated UNCOMPLICATED EDT Surgeries/Procedures Procedure Description Date Indications Data Source(s) BEHAV CHNG SMOKING BEHAV CHNG SMOKING 3-10 [facility] For 3-10 MIN MIN Family Health Results ID Date Data Source Urinalysis.[id number] 11/13/2019 02:12:00 PM EDT Boy nt [facility] 0 Name Value Range Interpretation Description Data Sup porting Code Source(s) Document(s ) Color of Urine YELLOW <content [facility] styleCode="Mo [facility] d">Color, Medical Urine Center </content>YELL OW <content styleCode="Starr lics"> (YELLOW )</content> UNK CLEAR <content [facility] styleCode="[facility] d">Urine Medical Clarity Center </content>JACQUELYN R <content styleCode="St[facility] lics"> (CLEAR )</content> Ketones NEGATIVE <content [facility] [Mass/volume] styleCode="Mo [facility] in Urine by d">Urine Medical Test strip Ketone Center </content>NEGA TIVE MG/DL<content styleCode="Starr lics"> (NEGATIVE MG/DL)</conten t> UNK NEGATIVE <content [facility] styleCode="Mo [facility] d">Urine Medical Bilirubin Center </content>NEGA TIVE <content styleCode="Starr lics"> (NEGATIVE )</content> Glucose NEGATIVE <content [facility] [Mass/volume] styleCode="Mo [facility] in Urine by d">Urine Medical Test strip Glucose Center </content>NEGA TIVE MG/DL<content styleCode="Starr lics"> (NEGATIVE MG/DL)</conten t> pH of Urine by 4.5-8.0 <content [facility] Test strip styleCode="Mo Calvin d">Urine pH Medical </content>6.0 Center <content styleCode="Starr lics"> (4.5-8.0 )</content> Hemoglobin NEGATIVE <content [facility] [Presence] in styleCode="Mo [facility] Urine by Test d">Urine Blood Medical strip </content>NEGA Center TIVE <content styleCode="Starr lics"> (NEGATIVE )</content> Protein NEGATIVE <content [facility] [Mass/volume] styleCode="Mo [facility] in Urine by d">Urine Medical Test strip Protein Center </content>NEGA TIVE MG/DL<content styleCode="Starr lics"> (NEGATIVE MG/DL)</conten t> Specific 1.015-1.02 <content [facility] gravity of 5 styleCode="Mo [facility] Urine by Test d">Urine Medical strip Specific Center Mcbrides </content>1.02 0 <content styleCode="Starr lics"> (1.015-1.025 )</content> Urobilinogen 0.2-1.0 <content [facility] [Units/volume] styleCode="Mo [facility] in Urine by d">Urine Medical Test strip Urobilinogen Center </content>0.2 MG/DL<content styleCode="Starr lics"> (0.2-1.0 MG/DL)</conten t> Leukocyte NEGATIVE <content [facility] esterase styleCode="Mo [facility] [Presence] in d">Urine Medical Urine by Test Leukocyte Center strip </content>NEGA TIVE <content styleCode="Starr lics"> (NEGATIVE )</content> Nitrite NEGATIVE <content [facility] [Presence] in styleCode="Mo [facility] Urine by Test d">Urine Medical strip Nitrite Center </content>NEGA TIVE <content styleCode="Starr lics"> (NEGATIVE )</content> ID Date Data Source Liver 11/13/2019 02:12:00 PM EDT [facility] Profile.[id number] Name Value Range Interpretation Description Data Sup porting Code Source(s) Document(s ) Alanine 7-50 Above high <content [facility] aminotransferase normal styleCode="Bold"> [facility] [Enzymatic Alanine Medical activity/volume] Aminotransferase Center in Serum or Plasma (ALT) </content>65 IU/L H<content styleCode="Italic s"> (7-50 IU/L)</content> Aspartate 17-59 Above high <content [facility] aminotransferase normal styleCode="Bold"> [facility]wasi hs [Enzymatic Aspartate Medical activity/volume] Aminotransferase Center in Serum or Plasma (AST) </content>74 IU/L H<content styleCode="Italic s"> (17-59 IU/L)</content> UNK 0.0-0.3 <content [facility] styleCode="Bold"> Calvin Bilirubin, Direct Medical </content>< 0.2 Center MG/DL<content styleCode="Italic s"> (0.0-0.3 MG/DL)</content> Bilirubin.total 0.2-1.3 <content [facility] [Mass/volume] in styleCode="Bold"> Kwasi hs Serum or Plasma Bilirubin Total Medical </content>0.7 Center MG/DL<content styleCode="Italic s"> (0.2-1.3 MG/DL)</content> Alkaline 38-126 <content [facility] phosphatase styleCode="Bold"> Calvin [Enzymatic Alkaline Medical activity/volume] Phosphatase (ALP) Cente r in Serum or Plasma </content>69 IU/L<content styleCode="Italic s"> (38-126 IU/L)</content> Albumin 3.5-5.0 <content [facility] [Mass/volume] in styleCode="Bold"> Kwasi hs Serum or Plasma Albumin Medical </content>4.3 Center G/DL<content styleCode="Italic s"> (3.5-5.0 G/DL)</content> ID Date Data Source HematologyRou.[id number] 11/13/2019 02:12:00 PM EDT Boy nt [facility] 0400 Name Value Range Interpretation Description Data Sup porting Code Source(s) Document(s ) Hematocrit 41.0-53. Below low normal <content [facility] [Volume 0 styleCode="Bold [facility] Fraction] of ">Hematocrit Medical Blood by </content>40.5 Center Automated count % L<content styleCode="Ital ics"> (41.0-53.0 %)</content> Hemoglobin 13.5-17. <content [facility] [Mass/volume] in 5 styleCode="Bold [facility] Blood ">Hemoglobin Medical </content>13.7 Center G/DL<content styleCode="Ital ics"> (13.5-17.5 G/DL)</content> Leukocytes 4.4-11.0 <content [facility] [#/volume] in styleCode="Bold [facility] Blood by ">White Blood Medical Automated count Cell Count Center </content>6.29 KCUMM<content styleCode="Ital ics"> (4.4-11.0 KCUMM)</content > Erythrocytes 4.4-5.9 <content [facility] [#/volume] in styleCode="Bold [facility] Blood by ">Red Blood Medical Automated count Cell Count Center </content>4.71 MCUMM<content styleCode="Ital ics"> (4.4-5.9 MCUMM)</content > Erythrocyte mean 32.0-37. <content [facility] corpuscular 0 styleCode="Bold Calvin hemoglobin ">Mean Corpus. Medical concentration Hgb Center [Mass/volume] by Concentration Automated count (MCHC) </content>33.8 G/DL<content styleCode="Ital ics"> (32.0-37.0 G/DL)</content> Platelets 130-400 <content [facility] [#/volume] in styleCode="Bold [facility] Blood by ">Platelet Medical Automated count Count Center </content>304 KCUMM<content styleCode="Ital ics"> (130-400 KCUMM)</content > Erythrocyte mean 26.0-34. <content [facility] corpuscular 0 styleCode="Bold [facility] hemoglobin ">Mean Medical [Entitic mass] Corposcular Center by Automated Hemoglobin count </content>29.1 PG<content styleCode="Ital ics"> (26.0-34.0 PG)</content> Erythrocyte 11.5-14. <content [facility] distribution 5 styleCode="Bold [facility] width [Ratio] by ">Red Cell Medical Automated count Distribution Center Width </content>12.2 %<content styleCode="Ital ics"> (11.5-14.5 %)</content> Erythrocyte mean 80.0-100 <content [facility] corpuscular .0 styleCode="Bold [facility] volume [Entitic ">Mean Medical volume] by Corpuscular Center Automated count Volume </content>86.0 FL<content styleCode="Ital ics"> (80.0-100.0 FL)</content> UNK 0.0 <content [facility] styleCode="Bold Calvin ">Nucleated Red Medical Blood Cell Center Count </content>0.00 KCUMM<content styleCode="Ital ics"> (0.0 KCUMM)</content > UNK 0 <content [facility] styleCode="Bold Calvin ">Nucleated Red Medical Blood Cell Center </content>0.0 /100<content styleCode="Ital ics"> (0 /100)</content> Platelet mean 8.0-11.0 <content [facility] volume [Entitic styleCode="Bold Calvin volume] in Blood ">Mean Platelet Medical by Automated Volume Center count </content>9.4 FL<content styleCode="Ital ics"> (8.0-11.0 FL)</content> ID Date Data Source GFR(Creatinine).[id number] 11/13/2019 02:12:00 PM EDT [facility] 0-0400 Name Value Range Interpretation Code Description Data Karely rce(s) Supporting Document(s ) UNK > 60 <content [facility] styleCode="Bold"> Medical Cent er EGFR </content>100 GFR<content styleCode="Italic s"> (> 60 GFR)</content> ID Date Data Source CHMROUTINECCDA.[id number] 11/13/2019 02:12:00 PM EDT [facility] -0400 Name Value Range Interpretation Description Data Sup porting Code Source(s) Document(s ) Cannabinoids <content [facility] [Presence] in styleCode="Mo Calvin Urine by Screen d">Cannabinoid Medical method >50 ng/mL s Center </content>NEGA TIVE NG/ML (Reference Range: not available)<br/ > ID Date Data Source BMP.[id number] 11/13/2019 02:12:00 PM EDT [facility] Name Value Range Interpretation Description Data Sup porting Code Source(s) Document(s ) Sodium 137-145 <content Saint [Moles/volume] in styleCode="Bold"> [facility] Serum or Plasma Sodium Medical </content>139 Center MEQ/L<content styleCode="Italic s"> (137-145 MEQ/L)</content> Potassium 3.5-5.3 <content [facility] [Moles/volume] in styleCode="Bold"> [facility] Serum or Plasma Potassium Medical </content>4.4 Center MEQ/L<content styleCode="Italic s"> (3.5-5.3 MEQ/L)</content> Chloride 98-107 <content [facility] [Moles/volume] in styleCode="Bold"> [facility] Serum or Plasma Chloride Medical </content>101 Center MEQ/L<content styleCode="Italic s"> (98-107 MEQ/L)</content> UNK 9-20 <content Saint styleCode="Bold"> Calvin BUN </content>12 Medical MG/DL<content Center styleCode="Italic s"> (9-20 MG/DL)</content> Carbon dioxide, 22-30 <content Saint total styleCode="Bold"> Calvin [Moles/volume] in Carbon Dioxide Medical Serum or Plasma </content>30 Center MEQ/L<content styleCode="Italic s"> (22-30 MEQ/L)</content> UNK > 60 <content Saint styleCode="Bold"> Calvin EGFR Medical </content>100 Center GFR<content styleCode="Italic s"> (> 60 GFR)</content> Creatinine 0.5-1.3 <content [facility] [Mass/volume] in styleCode="Bold"> [facility] Serum or Plasma Creatinine Medical </content>1.0 Center MG/DL<content styleCode="Italic s"> (0.5-1.3 MG/DL)</content> Alanine 7-50 Above high <content [facility] aminotransferase normal styleCode="Bold"> [facility] [Enzymatic Alanine Medical activity/volume] Aminotransferase Center in Serum or Plasma (ALT) </content>65 IU/L H<content styleCode="Italic s"> (7-50 IU/L)</content> Calcium 8.4-10. <content [facility] [Mass/volume] in 2 styleCode="Bold"> [facility] Serum or Plasma Calcium Medical </content>9.4 Center MG/DL<content styleCode="Italic s"> (8.4-10.2 MG/DL)</content> Glucose 74-106 <content [facility] [Mass/volume] in styleCode="Bold"> [facility] Serum or Plasma Glucose Medical </content>77 Center MG/DL<content styleCode="Italic s"> (74-106 MG/DL)</content> Aspartate 17-59 Above high <content [facility] aminotransferase normal styleCode="Bold"> [facility] [Enzymatic Aspartate Medical activity/volume] Aminotransferase Center in Serum or Plasma (AST) </content>74 IU/L H<content styleCode="Italic s"> (17-59 IU/L)</content> Bilirubin.total 0.2-1.3 <content [facility] [Mass/volume] in styleCode="Bold"> [facility] Serum or Plasma Bilirubin Total Medical </content>0.7 Center MG/DL<content styleCode="Italic s"> (0.2-1.3 MG/DL)</content> Alkaline 38-126 <content Saint phosphatase styleCode="Bold"> [facility] [Enzymatic Alkaline Medical activity/volume] Phosphatase (ALP) Cente r in Serum or Plasma </content>69 IU/L<content styleCode="Italic s"> (38-126 IU/L)</content> Albumin 3.5-5.0 <content [facility] [Mass/volume] in styleCode="Bold"> [facility] Serum or Plasma Albumin Medical </content>4.3 Center G/DL<content styleCode="Italic s"> (3.5-5.0 G/DL)</content> ID Date Data Source Liver 10/27/2019 05:50:00 AM EDT [facility] Profile.[id number] Name Value Range Interpretation Description Data Sup porting Code Source(s) Document(s ) Aspartate 17-59 <content [facility] aminotransferase styleCode="Bold"> [facility] [Enzymatic Aspartate Medical activity/volume] Aminotransferase Center in Serum or Plasma (AST) </content>28 IU/L<content styleCode="Italic s"> (17-59 IU/L)</content> Alkaline 38-126 <content [facility] phosphatase styleCode="Bold"> Calvin [Enzymatic Alkaline Medical activity/volume] Phosphatase (ALP) Cente r in Serum or Plasma </content>62 IU/L<content styleCode="Italic s"> (38-126 IU/L)</content> Alanine 7-50 <content [facility] aminotransferase styleCode="Bold"> [facility] [Enzymatic Alanine Medical activity/volume] Aminotransferase Center in Serum or Plasma (ALT) </content>40 IU/L<content styleCode="Italic s"> (7-50 IU/L)</content> Bilirubin.total 0.2-1.3 <content [facility] [Mass/volume] in styleCode="Bold"> [facility] Serum or Plasma Bilirubin Total Medical </content>0.6 Center MG/DL<content styleCode="Italic s"> (0.2-1.3 MG/DL)</content> Albumin 3.5-5.0 <content [facility] [Mass/volume] in styleCode="Bold"> [facility] hs Serum or Plasma Albumin Medical </content>3.9 Center G/DL<content styleCode="Italic s"> (3.5-5.0 G/DL)</content> ID Date Data Source GFR(Creatinine).[id number] 10/27/2019 05:50:00 AM EDT [facility] 0-0400 Name Value Range Interpretation Code Description Data Karely rce(s) Supporting Document(s ) UNK > 60 <content [facility] Simpson styleCode="Bold"> Medical Cent er EGFR </content>90 GFR<content styleCode="Italic s"> (> 60 GFR)</content> ID Date Data Source CHMROUTINECCDA.[id number] 10/27/2019 05:50:00 AM EDT [facility] -0400 Name Value Range Interpretation Description Data Sup porting Code Source(s) Document(s ) UNK >= 1.0 <content Saint styleCode="Mo Gonzalezs d">AG Ratio Medical </content>1.5 Center <content styleCode="Starr lics"> (>= 1.0 )</content> Phosphate 2.5-4.5 Above high normal <content [facility] [Mass/volume] styleCode="Mo Gonzalezs in Serum or d">Phosphorus Medical Plasma </content>5.5 Center MG/DL H<content styleCode="Starr lics"> (2.5-4.5 MG/DL)</conten t> Protein 6.3-8.2 <content [facility] [Mass/volume] styleCode="Mo Calvin in Serum or d">Total Medical Plasma Protein Center </content>6.5 G/DL<content styleCode="Starr lics"> (6.3-8.2 G/DL)</content > UNK 2.3-3.5 <content [facility] styleCode="Mo Calvin d">Globulin Medical </content>2.6 Center G/DL<content styleCode="Starr lics"> (2.3-3.5 G/DL)</content > ID Date Data Source [facility].[id number] 10/27/2019 05:50:00 AM EDT [facility] Name Value Range Interpretation Description Data Sup porting Code Source(s) Document(s ) Potassium 3.5-5.3 <content Saint [Moles/volume] in styleCode="Bold"> [facility] Serum or Plasma Potassium Medical </content>4.1 Center MEQ/L<content styleCode="Italic s"> (3.5-5.3 MEQ/L)</content> Sodium 137-145 Below low <content Saint [Moles/volume] in normal styleCode="Bold"> [facility] Serum or Plasma Sodium Medical </content>136 Center MEQ/L L<content styleCode="Italic s"> (137-145 MEQ/L)</content> Carbon dioxide, 22-30 <content Saint total styleCode="Bold"> Calvin [Moles/volume] in Carbon Dioxide Medical Serum or Plasma </content>27 Center MEQ/L<content styleCode="Italic s"> (22-30 MEQ/L)</content> Glucose 74-106 Above high <content [facility] [Mass/volume] in normal styleCode="Bold"> [facility] Serum or Plasma Glucose Medical </content>122 Center MG/DL H<content styleCode="Italic s"> (74-106 MG/DL)</content> Chloride 98-107 <content [facility] [Moles/volume] in styleCode="Bold"> [facility] Serum or Plasma Chloride Medical </content>102 Center MEQ/L<content styleCode="Italic s"> (98-107 MEQ/L)</content> Creatinine 0.5-1.3 <content [facility] [Mass/volume] in styleCode="Bold"> [facility] Serum or Plasma Creatinine Medical </content>1.1 Center MG/DL<content styleCode="Italic s"> (0.5-1.3 MG/DL)</content> UNK 9-20 <content Saint styleCode="Bold"> Calvin BUN </content>16 Medical MG/DL<content Center styleCode="Italic s"> (9-20 MG/DL)</content> Alanine 7-50 <content [facility] aminotransferase styleCode="Bold"> [facility] [Enzymatic Alanine Medical activity/volume] Aminotransferase Center in Serum or Plasma (ALT) </content>40 IU/L<content styleCode="Italic s"> (7-50 IU/L)</content> UNK > 60 <content Saint styleCode="Bold"> Calvin EGFR </content>90 Medical GFR<content Center styleCode="Italic s"> (> 60 GFR)</content> Calcium 8.4-10. <content [facility] [Mass/volume] in 2 styleCode="Bold"> [facility] hs Serum or Plasma Calcium Medical </content>9.5 Center MG/DL<content styleCode="Italic s"> (8.4-10.2 MG/DL)</content> Aspartate 17-59 <content [facility] aminotransferase styleCode="Bold"> [facility] [Enzymatic Aspartate Medical activity/volume] Aminotransferase Center in Serum or Plasma (AST) </content>28 IU/L<content styleCode="Italic s"> (17-59 IU/L)</content> Alkaline 38-126 <content [facility] phosphatase styleCode="Bold"> Calvin [Enzymatic Alkaline Medical activity/volume] Phosphatase (ALP) Cente r in Serum or Plasma </content>62 IU/L<content styleCode="Italic s"> (38-126 IU/L)</content> Bilirubin.total 0.2-1.3 <content [facility] [Mass/volume] in styleCode="Bold"> [facility] Serum or Plasma Bilirubin Total Medical </content>0.6 Center MG/DL<content styleCode="Italic s"> (0.2-1.3 MG/DL)</content> Albumin 3.5-5.0 <content [facility] [Mass/volume] in styleCode="Bold"> [facility] Serum or Plasma Albumin Medical </content>3.9 Center G/DL<content styleCode="Italic s"> (3.5-5.0 G/DL)</content> ID Date Data Source Urinalysis.[id number] 10/26/2019 01:35:00 AM EDT [facility] 0 Name Value Range Interpretation Description Data Sup porting Code Source(s) Document(s ) Color of Urine YELLOW <content [facility] styleCode="Mo Gonzalezs d">Color, Medical Urine Center </content>YELL OW <content styleCode="Starr lics"> (YELLOW )</content> Glucose NEGATIVE <content [facility] [Mass/volume] styleCode="Mo Simpson in Urine by d">Urine Medical Test strip Glucose Center </content>NEGA TIVE MG/DL<content styleCode="Starr lics"> (NEGATIVE MG/DL)</conten t> UNK NEGATIVE <content Saint styleCode="Mo Calvin d">Urine Medical Bilirubin Center </content>NEGA TIVE <content styleCode="Starr lics"> (NEGATIVE )</content> UNK CLEAR <content Saint styleCode="Mo Calvin d">Urine Medical Clarity Center </content>JACQUELYN R <content styleCode="Starr lics"> (CLEAR )</content> Ketones NEGATIVE <content [facility] [Mass/volume] styleCode="Mo Calvin in Urine by d">Urine Medical Test strip Ketone Center </content>NEGA TIVE MG/DL<content styleCode="Starr lics"> (NEGATIVE MG/DL)</conten t> Specific 1.015-1.02 <content Saint gravity of 5 styleCode="Mo Calvin Urine by Test d">Urine Medical strip Specific Center Mcbrides </content>1.01 5 <content styleCode="Starr lics"> (1.015-1.025 )</content> Urobilinogen 0.2-1.0 <content Saint [Units/volume] styleCode="Mo Calvin in Urine by d">Urine Medical Test strip Urobilinogen Center </content>0.2 MG/DL<content styleCode="Starr lics"> (0.2-1.0 MG/DL)</conten t> Hemoglobin NEGATIVE <content [facility] [Presence] in styleCode="Mo Gonzalezs Urine by Test d">Urine Blood Medical strip </content>NEGA Center TIVE <content styleCode="Starr lics"> (NEGATIVE )</content> Protein NEGATIVE <content [facility] [Mass/volume] styleCode="Mo Calvin in Urine by d">Urine Medical Test strip Protein Center </content>NEGA TIVE MG/DL<content styleCode="Starr lics"> (NEGATIVE MG/DL)</conten t> pH of Urine by 4.5-8.0 <content Saint Test strip styleCode="Mo Calvin d">Urine pH Medical </content>6.5 Center <content styleCode="Starr lics"> (4.5-8.0 )</content> Leukocyte NEGATIVE <content Saint esterase styleCode="Mo Calvin [Presence] in d">Urine Medical Urine by Test Leukocyte Center strip </content>NEGA TIVE <content styleCode="Starr lics"> (NEGATIVE )</content> Nitrite NEGATIVE <content [facility] [Presence] in styleCode="Mo Simpson Urine by Test d">Urine Medical strip Nitrite Center </content>NEGA TIVE <content styleCode="Starr lics"> (NEGATIVE )</content> ID Date Data Source HematologyRou.[id number] 10/26/2019 01:35:00 AM EDT [facility] 0400 Name Value Range Interpretation Description Data Sup porting Code Source(s) Document(s ) Leukocytes 4.4-11.0 <content Saint [#/volume] in styleCode="Bold Calvin Blood by ">White Blood Medical Automated count Cell Count Center </content>7.23 KCUMM<content styleCode="Ital ics"> (4.4-11.0 KCUMM)</content > Hemoglobin 13.5-17. Below low normal <content [facility] [Mass/volume] in 5 styleCode="Bold Calvin Blood ">Hemoglobin Medical </content>12.9 Center G/DL L<content styleCode="Ital ics"> (13.5-17.5 G/DL)</content> Erythrocytes 4.4-5.9 <content Saint [#/volume] in styleCode="Bold Calvin Blood by ">Red Blood Medical Automated count Cell Count Center </content>4.44 MCUMM<content styleCode="Ital ics"> (4.4-5.9 MCUMM)</content > Erythrocyte mean 80.0-100 <content [facility] corpuscular .0 styleCode="Bold Calvin volume [Entitic ">Mean Medical volume] by Corpuscular Center Automated count Volume </content>85.8 FL<content styleCode="Ital ics"> (80.0-100.0 FL)</content> Erythrocyte 11.5-14. <content Saint distribution 5 styleCode="Bold Calvin width [Ratio] by ">Red Cell Medical Automated count Distribution Center Width </content>12.1 %<content styleCode="Ital ics"> (11.5-14.5 %)</content> Erythrocyte mean 26.0-34. <content Saint corpuscular 0 styleCode="Bold Calvin hemoglobin ">Mean Medical [Entitic mass] Corposcular Center by Automated Hemoglobin count </content>29.1 PG<content styleCode="Ital ics"> (26.0-34.0 PG)</content> Hematocrit 41.0-53. Below low normal <content Saint [Volume 0 styleCode="Bold Calvin Fraction] of ">Hematocrit Medical Blood by </content>38.1 Center Automated count % L<content styleCode="Ital ics"> (41.0-53.0 %)</content> Erythrocyte mean 32.0-37. <content [facility] corpuscular 0 styleCode="Bold Calvin hemoglobin ">Mean Corpus. Medical concentration Hgb Center [Mass/volume] by Concentration Automated count (MCHC) </content>33.9 G/DL<content styleCode="Ital ics"> (32.0-37.0 G/DL)</content> UNK 0 <content Saint styleCode="Bold Calvin ">Nucleated Red Medical Blood Cell Center </content>0.0 /100<content styleCode="Ital ics"> (0 /100)</content> Platelets 130-400 <content Saint [#/volume] in styleCode="Bold Calvin Blood by ">Platelet Medical Automated count Count Center </content>205 KCUMM<content styleCode="Ital ics"> (130-400 KCUMM)</content > UNK 0.0 <content Saint styleCode="Bold Calvin ">Nucleated Red Medical Blood Cell Center Count </content>0.00 KCUMM<content styleCode="Ital ics"> (0.0 KCUMM)</content > Platelet mean 8.0-11.0 <content Saint volume [Entitic styleCode="Bold Calvin volume] in Blood ">Mean Platelet Medical by Automated Volume Center count </content>9.2 FL<content styleCode="Ital ics"> (8.0-11.0 FL)</content> ID Date Data Source CHMROUTINECCDA.[id number] 10/26/2019 01:35:00 AM EDT [facility] -0400 Name Value Range Interpretation Description Data Sup porting Code Source(s) Document(s ) Cannabinoids <content [facility] [Presence] in styleCode="Mo Simpson Urine by Screen d">Cannabinoid Medical method >50 s Center ng/mL </content>PRES UMPTIVE POSITIVE NG/ML (Reference Range: not available)<br/ > Magnesium 1.6-2.3 <content [facility] [Mass/volume] styleCode="Mo Calvin in Serum or d">Magnesium Medical Plasma </content>1.8 Center MG/DL<content styleCode="Starr lics"> (1.6-2.3 MG/DL)</conten t> Procedure Social History Code Duration Value Status Description Data Source(s ) Alcohol intake 02/16/2020 [facility] [place] 12:00:00 AM non-drinker For Family EDT (finding) Health Tobacco smoking 02/16/2020 Current every [facility] status [facility] 12:00:00 AM day smoker For Family EDT Health Cigarettes 02/16/2020 [facility] [place] smoked current 12:00:00 AM For Famil y (pack per day) - EDT Health Reported Cigarette 02/16/2020 K [facility] pack-years 12:00:00 AM For Family EDT Health Tobacco use and 02/16/2020 Never used [facility] exposure 12:00:00 AM For Family EDT Health Smoking 11/13/2019 Denies Ever completed Denies [facility] 10:03:00 AM Smoked Smoked Medical Cente r EDT Smoking 11/13/2019 Denies Ever completed [facility]ies [facility] 08:56:00 AM Smoked Smoked Medical Cente r EDT Smoking 10/26/2019 Daily Smoker completed Daily Smoker [facility] 02:01:00 AM Medical Cente r EDT Smoking 10/26/2019 Denies Ever completed [facility]ies [facility] 01:14:00 AM Smoked Smoked Medical Cente r EDT Smoking 10/26/2019 Denies Ever completed Denies [facility] 01:02:00 AM Smoked Smoked Medical Cente r EDT Exposure to Unable to In the last month, Unable to [facility] SARS-CoV-2 (event) assess have you been in assess For Family contact with Health someone who was confirmed or suspected to have Coronavirus / COVID-19? Sex assigned at Not on file Not on file [facility] Health History of tobacco use Cigarette Smoker The [facility] History SDOH Alcohol Std [facility] Drinks Vital Signs ID Date Data Source UNK Name Value Range Interpretation Code Description Data Source(s) Body weight 104.992528 kg 104.369525 kg [facility] Measured Medical Center Body temperature 36.539988 Melissa 36.860123 Melissa [facility] Respiratory rate 18 /min 18 /min [facility] Oxygen 99 % 99 % [facility] saturation in Medical Arterial blood Center by Pulse oximetry Heart rate 86 /min 86 /min [facility] Body height 175.936606 cm 175.819412 cm [facility] Diastolic blood 81 mm[Hg] 81 mm[Hg] [facility] pressure Medical Center Systolic blood 142 mm[Hg] 142 mm[Hg] [facility] Center Body mass index 33.9 kg/m2 33.9 kg/m2 [facility] (BMI) [Ratio] Medical Center Body temperature 98.2 [facility] 98.2 [facility] Diastolic blood 79 mmHg 79 mmHg [facility] Systolic blood 138 mmHg 138 mmHg [facility] Respiratory rate 18 bpm 18 bpm [facility] Heart rate 89 bpm 89 bpm [facility] Body temperature 97.7 Fahrenheit 97.7 [facility] Diastolic blood 82 mmHg 82 mmHg [facility] Systolic blood 140 mmHg 140 mmHg [facility] Respiratory rate 18 bpm 18 bpm [facility] Heart rate 85 bpm 85 bpm [facility] Body temperature 98.6 Fahrenheit 98.6 Fahrenh t [facility] Diastolic blood 68 mmHg 68 mmHg [facility] Systolic blood 124 mmHg 124 mmHg [facility] Respiratory rate 18 bpm 18 bpm [facility] Heart rate 87 bpm 87 bpm [facility] Diastolic blood 72 mmHg 72 mmHg [facility] Systolic blood 123 mmHg 123 mmHg [facility] Respiratory rate 18 bpm 18 bpm [facility] Heart rate 80 bpm 80 bpm [facility] Diastolic blood 68 mmHg 68 mmHg [facility] Systolic blood 116 mmHg 116 mmHg [facility] Respiratory rate 18 bpm 18 bpm [facility] Heart rate 60 bpm 60 bpm [facility] Body temperature 36.849278 Melissa 36.992957 [facility] Respiratory rate 18 /min 18 /min [facility] Heart rate 53 /min 53 /min [facility] Diastolic blood 58 mm[Hg] 58 mm[Hg] [facility] pressure Medical Center Systolic blood 117 mm[Hg] 117 mm[Hg] [facility] [place] Body temperature 36.178030 Melissa 36.359974 [facility] Respiratory rate 18 /min 18 /min [facility] Heart rate 53 /min 53 /min [facility] Diastolic blood 49 mm[Hg] 49 mm[Hg] [facility] Systolic blood 113 mm[Hg] 113 mm[Hg] [facility] Systolic blood 105 mm[Hg] 105 mm[Hg] [facility] Body temperature 36.162049 Melissa 36.454026 [facility] Respiratory rate 18 /min 18 /min [facility] Heart rate 59 /min 59 /min [facility] Diastolic blood 58 mm[Hg] 58 mm[Hg] [facility] Body weight 100.606832 kg 100.763318 kg [facility] Measured Medical Center Oxygen 99 % 99 % [facility] saturation in [facility] Arterial blood Center by Pulse oximetry Body height 182.111426 cm 182.321777 cm [facility] Body mass index 30.17 kg/m2 30.17 kg/m2 [facility] (BMI) [Ratio] Medical Center Body temperature 36.156705 Melissa 36.105162 [facility] Respiratory rate 18 /min 18 /min [facility] Heart rate 62 /min 62 /min [facility] Diastolic blood 53 mm[Hg] 53 mm[Hg] [facility] Systolic blood 117 mm[Hg] 117 mm[Hg] [facility] Body temperature 36.181685 Melissa 36.469339 [facility] Respiratory rate 18 /min 18 /min [facility] Heart rate 66 /min 66 /min [facility] Diastolic blood 65 mm[Hg] 65 mm[Hg] [facility] Systolic blood 103 mm[Hg] 103 mm[Hg] [facility] Body height 182.416579 cm 182.498033 cm [facility] Body mass index 30.17 kg/m2 30.17 kg/m2 [facility] (BMI) [Ratio] Medical Center Body weight 100.331473 kg 100.851237 kg [facility] Measured Medical Center Body temperature 36.128155 Melissa 36.642083 [facility] Respiratory rate 18 /min 18 /min [facility] Heart rate 66 /min 66 /min [facility] Diastolic blood 67 mm[Hg] 67 mm[Hg] [facility] Systolic blood 129 mm[Hg] 129 mm[Hg] [facility] Center Body weight 100.864147 kg 100.040574 kg [facility] Measured Medical Center Body height 182.554442 cm 182.045484 cm [facility] Body mass index 30.17 kg/m2 30.17 kg/m2 [facility] (BMI) [Ratio] Medical Center Body temperature 36.723546 Melissa 36.870399 [facility] Respiratory rate 20 /min 20 /min [facility] Heart rate 59 /min 59 /min [facility] Diastolic blood 63 mm[Hg] 63 mm[Hg] [facility] Systolic blood 128 mm[Hg] 128 mm[Hg] [facility] Center Body temperature 36.650603 Melissa 36.722718 [facility] Respiratory rate 20 /min 20 /min [facility] Heart rate 53 /min 53 /min [facility] Diastolic blood 67 mm[Hg] 67 mm[Hg] [facility] Systolic blood 140 mm[Hg] 140 mm[Hg] [facility] Center Body temperature 37.104493 Melissa 37.482103 [facility] Respiratory rate 18 /min 18 /min [facility] Heart rate 80 /min 80 /min [facility] Diastolic blood 80 mm[Hg] 80 mm[Hg] [facility] Systolic blood 148 mm[Hg] 148 mm[Hg] [facility] Center Body weight 100.157852 kg 100.709214 kg [facility] Medical Center Body height 182.795988 cm 182.551926 cm [facility] Body mass index 29.90 kg/m2 29.90 kg/m2 [facility] (BMI) [Ratio] Medical Center Body weight 100.358475 kg 100.242048 kg [facility] Measured Medical Center Body height 182.357581 cm 182.667622 cm [facility] Body mass index 30.17 kg/m2 30.17 kg/m2 [facility] (BMI) [Ratio] Medical Center Body temperature 36.220406 Melissa 36.541342 [facility] Respiratory rate 16 /min 16 /min [facility] Heart rate 76 /min 76 /min [facility] Diastolic blood 80 mm[Hg] 80 mm[Hg] [facility] pressure [facility] Systolic blood 148 mm[Hg] 148 mm[Hg] [facility] Center Oxygen 100 % 100 % [facility] saturation in [facility] Arterial blood Center by Pulse oximetry Patient Treatment Plan of Care Planned Activity Planned Date Details Description Data Source (s) quetiapine [address] [facility] quetiapine [address] [facility] NICOTINE (NICODERM) 21 MG = [facility] 1 PATCH Transdermal ONCE [address] DAILY for 30 DaysDirections: 1 patch transdermal daily fluticasone propionate 50 [facility]/actuation Center spray,suspension, Ordered By: ZACKARY Wadeirections: 1 spray nasal twice a day Fluoxetine 20 MG Oral [facility]
[2020-05-03] MEDS: METHOCARBAMOL 500 MG TABLET PO PRN (18:29)
[2020-05-03 19:31] LABS: HEMATOCRIT 43.4 % (35.4-49); MCH 29.4 pg (25.7-33.7); MCHC 34.4 g/dl (32.0-35.9); MEAN CELL VOLUME 85.4 fl (80-96); MEAN PLT VOLUME 8.6 fl (7.5-11.1); PLATELET COUNT 281 K/MM3 (134-434); RBC 5.08 M/mm3 (4.00-5.60); RDW 13.3 % (11.9-15.9); WHITE BLOOD COUNT 8.2 K/mm3 (4.0-10.0)
[2020-05-03 19:50] LABS: ALBUMIN 4.4 g/dl (3.4-5.0); BLOOD UREA NITROGEN 7.2 mg/dL (7-18); CALCIUM 9.3 mg/dL (8.5-10.1); POTASSIUM 4.1 mmol/L (3.5-5.1)
[2020-05-03 19:52] LABS: BILIRUBIN,TOTAL 0.9 mg/dL (0.2-1)
[2020-05-03] MEDS: THIAMINE HCL 100 MG TABLET (FP) PO SCH (22:20)
[2020-05-03] MEDS: MELATONIN 5 MG TABLETS PO SCH (22:20)
[2020-05-04] MEDS: hydrOXYzine PAMOATE 25 MG CAPSULE (FP) PO SCH ×5 (07:15→22:15)
[2020-05-04] MEDS ORDERED: METHADONE HCL 10 MG TABLET (FOR DETOX USE ONLY) ONE (08:58)
[2020-05-04] MEDS ORDERED: METHADONE HCL 5 MG TABLET (FOR DETOX USE ONLY) ONE (08:58)
[2020-05-04] MEDS ORDERED: METHADONE (DETOX) 20 MG, METHADONE (DETOX) 5 MG PO ONE (10:00)
[2020-05-04] MEDS: NICOTINE 7 MG/24 HOURS TOPICAL PATCH TD SCH (10:28)
[2020-05-04] MEDS: PRENATAL VITAMINS W/ FOLIC ACID TABLET (FP) PO SCH (10:28)
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
--- NOTE | 2020-05-04 11:53 | PN ---
BHS COWS - Scale Resting Pulse: 0= [place] 80 or Below Sweatin= No chills or Flushing Restless Observation: 0= Sits Still Pupil Size: 1= Pupils >than Normal Bone or Joint Aches: 2= Severe Diffuse Aches Runny Nose/ Eye Tearin= Nasal Congestion GI Upset > 30mins: 1= Stomach Cramp Tremor Observation of Outstretched Hands: 2= Slight Tremor Visible Yawning Observation: 1= 1-2x During Session Anxiety or Irritability: 2=Irritable/Anxious Goose Flesh Skin: 0=Smooth Skin COWS Score: 10 BHS Progress Note (SOAP) Subjective: alert,irritable,anxious,interrupted sleep,pain in the body and back,aching pain Objective: 05/04/20 14:58 Vital Signs Temperature 97.9 F 05/04/20 12:45 Pulse Rate 50 L 05/04/20 12:45 Respiratory Rate 18 05/04/20 12:45 Blood Pressure 114/64 05/04/20 12:45 O2 Sat by Pulse Oximetry (%) 100 05/04/20 12:45 Laboratory Last Values WBC 8.2 K/mm3 (4.0-10.0) 05/03/20 14:45 RBC 5.08 M/mm3 (4.00-5.60) 05/03/20 14:45 Hgb 15.0 GM/dL (11.7-16.9) 05/03/20 14:45 Hct 43.4 % (35.4-49) 05/03/20 14:45 MCV 85.4 fl (80-96) 05/03/20 14:45 MCH 29.4 pg (25.7-33.7) 05/03/20 14:45 MCHC 34.4 g/dl (32.0-35.9) 05/03/20 14:45 RDW 13.3 % (11.9-15.9) 05/03/20 14:45 Plt Count 281 K/MM3 (134-434) 05/03/20 14:45 MPV 8.6 fl (7.5-11.1) D 05/03/20 14:45 Sodium 138 mmol/L (136-145) 05/03/20 14:45 Potassium 4.1 mmol/L (3.5-5.1) 05/03/20 14:45 Chloride 104 mmol/L (98-107) 05/03/20 14:45 Carbon Dioxide 27 mmol/L (21-32) 05/03/20 14:45 Anion Gap 7 MMOL/L (8-16) L 05/03/20 14:45 BUN 7.2 mg/dL (7-18) 05/03/20 14:45 Creatinine 1.0 mg/dL (0.55-1.3) 05/03/20 14:45 Est GFR (CKD-EPI)AfAm 124.14 05/03/20 14:45 Est GFR (CKD-EPI)NonAf 107.11 05/03/20 14:45 Random Glucose 110 mg/dL (74-106) H 05/03/20 14:45 Calcium 9.3 mg/dL (8.5-10.1) 05/03/20 14:45 Total Bilirubin 0.9 mg/dL (0.2-1) 05/03/20 14:45 AST 23 U/L (15-37) 05/03/20 14:45 ALT 36 U/L (13-61) 05/03/20 14:45 Alkaline Phosphatase 73 U/L (45-117) 05/03/20 14:45 Total Protein 8.0 g/dl (6.4-8.2) 05/03/20 14:45 Albumin 4.4 g/dl (3.4-5.0) 05/03/20 14:45 Syphilis Serology Non-reactive (NONREACTIVE) 05/03/20 14:45 HIV Ag/Ab Combo Qual Negative (NEGATIVE) 05/03/20 15:00 Assessment: 05/04/20 15:02 withdrawal symptom Plan: continue detox methadone regimen,fluid,initial glucose is 110,fasting glucosr in am
[2020-05-04] MEDS: THIAMINE HCL 100 MG TABLET (FP) PO SCH (22:15)
[2020-05-04] MEDS: MELATONIN 5 MG TABLETS PO SCH (22:16)
[2020-05-05] MEDS ORDERED: chlordiazePOXIDE HCL 25 MG CAPSULE PO SCH (05:00)
[2020-05-05] MEDS: hydrOXYzine PAMOATE 25 MG CAPSULE (FP) PO SCH ×5 (07:55→22:12)
--- NOTE | 2020-05-05 09:41 | PN ---
BHS COWS - Scale Resting Pulse: 0= [place] 80 or Below Sweatin= No chills or Flushing Restless Observation: 0= Sits Still Pupil Size: 1= Pupils >than Normal Bone or Joint Aches: 1= Mild Discomfort Runny Nose/ Eye Tearin= Nasal Congestion GI Upset > 30mins: 1= Stomach Cramp Tremor Observation of Outstretched Hands: 2= Slight Tremor Visible Yawning Observation: 1= 1-2x During Session Anxiety or Irritability: 2=Irritable/Anxious Goose Flesh Skin: 0=Smooth Skin COWS Score: 9 BHS Progress Note (SOAP) Subjective: alert,irritable,anxious,interrupted sleep,aching pain,nausea Objective: 05/05/20 14:23 Vital Signs Temperature 97.3 F L 05/05/20 12:44 Pulse Rate 51 L 05/05/20 12:44 Respiratory Rate 20 05/05/20 12:44 Blood Pressure 107/54 L 05/05/20 12:44 O2 Sat by Pulse Oximetry (%) 97 05/05/20 12:44 Laboratory Last Values WBC 8.2 K/mm3 (4.0-10.0) 05/03/20 14:45 RBC 5.08 M/mm3 (4.00-5.60) 05/03/20 14:45 Hgb 15.0 GM/dL (11.7-16.9) 05/03/20 14:45 Hct 43.4 % (35.4-49) 05/03/20 14:45 MCV 85.4 fl (80-96) 05/03/20 14:45 MCH 29.4 pg (25.7-33.7) 05/03/20 14:45 MCHC 34.4 g/dl (32.0-35.9) 05/03/20 14:45 RDW 13.3 % (11.9-15.9) 05/03/20 14:45 Plt Count 281 K/MM3 (134-434) 05/03/20 14:45 MPV 8.6 fl (7.5-11.1) D 05/03/20 14:45 Sodium 138 mmol/L (136-145) 05/03/20 14:45 Potassium 4.1 mmol/L (3.5-5.1) 05/03/20 14:45 Chloride 104 mmol/L (98-107) 05/03/20 14:45 Carbon Dioxide 27 mmol/L (21-32) 05/03/20 14:45 Anion Gap 7 MMOL/L (8-16) L 05/03/20 14:45 BUN 7.2 mg/dL (7-18) 05/03/20 14:45 Creatinine 1.0 mg/dL (0.55-1.3) 05/03/20 14:45 Est GFR (CKD-EPI)AfAm 124.14 05/03/20 14:45 Est GFR (CKD-EPI)NonAf 107.11 05/03/20 14:45 Random Glucose 110 mg/dL (74-106) H 05/03/20 14:45 Calcium 9.3 mg/dL (8.5-10.1) 05/03/20 14:45 Total Bilirubin 0.9 mg/dL (0.2-1) 05/03/20 14:45 AST 23 U/L (15-37) 05/03/20 14:45 ALT 36 U/L (13-61) 05/03/20 14:45 Alkaline Phosphatase 73 U/L (45-117) 05/03/20 14:45 Total Protein 8.0 g/dl (6.4-8.2) 05/03/20 14:45 Albumin 4.4 g/dl (3.4-5.0) 05/03/20 14:45 Syphilis Serology Non-reactive (NONREACTIVE) 05/03/20 14:45 COVID-19 (BENNIE) Not detected (Not Detected) 05/03/20 15:00 HIV Ag/Ab Combo Qual Negative (NEGATIVE) 05/03/20 15:00 Assessment: 05/05/20 14:23 withdrawal symptom Plan: continue detox methadone regimen,initial glucose 110,fasting glucose in am,encourage oral fluid
[2020-05-05] MEDS ORDERED: METHADONE HCL 10 MG TABLET (FOR DETOX USE ONLY) PO ONE (10:00)
[2020-05-05] MEDS: PRENATAL VITAMINS W/ FOLIC ACID TABLET (FP) PO SCH (10:33)
[2020-05-05] MEDS: NICOTINE 7 MG/24 HOURS TOPICAL PATCH TD SCH (10:34)
[2020-05-05] MEDS: METHOCARBAMOL 500 MG TABLET PO PRN (14:26)
[2020-05-05] MEDS: THIAMINE HCL 100 MG TABLET (FP) PO SCH (22:12)
[2020-05-05] MEDS: MELATONIN 5 MG TABLETS PO SCH (22:12)
[2020-05-06] MEDS ORDERED: chlordiazePOXIDE HCL 10 MG CAPSULE PO PRN
[2020-05-06] MEDS ORDERED: chlordiazePOXIDE HCL 10 MG CAPSULE PO SCH (05:00)
[2020-05-06] MEDS: hydrOXYzine PAMOATE 25 MG CAPSULE (FP) PO SCH ×5 (07:08→22:24)
[2020-05-06] MEDS ORDERED: METHADONE HCL 5 MG TABLET (FOR DETOX USE ONLY) ONE (08:45)
[2020-05-06] MEDS ORDERED: METHADONE HCL 10 MG TABLET (FOR DETOX USE ONLY) ONE (08:45)
--- NOTE | 2020-05-06 09:34 | PN ---
BHS COWS - Scale Resting Pulse: 0= [place] 80 or Below Sweatin= No chills or Flushing Restless Observation: 1= Difficult to Sit Still Pupil Size: 0= Normal to Room Light Bone or Joint Aches: 2= Severe Diffuse Aches Runny Nose/ Eye Tearin= None GI Upset > 30mins: 0= None Tremor Observation of Outstretched Hands: 0= None Yawning Observation: 1= 1-2x During Session Anxiety or Irritability: 2=Irritable/Anxious Goose Flesh Skin: 0=Smooth Skin COWS Score: 6 BHS Progress Note (SOAP) Subjective: c/o anxiety, irritability, and muscle aches. Objective: 05/06/20 09:35 Vital Signs 05/06/20 05/06/20 06:21 09:03 Temperature 96.9 F L 98.0 F Pulse Rate 58 L 52 L Respiratory 18 18 Rate Blood Pressure 118/60 114/59 L O2 Sat by Pulse 100 Oximetry (%) Laboratory Last Values WBC 8.2 K/mm3 (4.0-10.0) 05/03/20 14:45 RBC 5.08 M/mm3 (4.00-5.60) 05/03/20 14:45 Hgb 15.0 GM/dL (11.7-16.9) 05/03/20 14:45 Hct 43.4 % (35.4-49) 05/03/20 14:45 MCV 85.4 fl (80-96) 05/03/20 14:45 MCH 29.4 pg (25.7-33.7) 05/03/20 14:45 MCHC 34.4 g/dl (32.0-35.9) 05/03/20 14:45 RDW 13.3 % (11.9-15.9) 05/03/20 14:45 Plt Count 281 K/MM3 (134-434) 05/03/20 14:45 MPV 8.6 fl (7.5-11.1) D 05/03/20 14:45 Sodium 138 mmol/L (136-145) 05/03/20 14:45 Potassium 4.1 mmol/L (3.5-5.1) 05/03/20 14:45 Chloride 104 mmol/L (98-107) 05/03/20 14:45 Carbon Dioxide 27 mmol/L (21-32) 05/03/20 14:45 Anion Gap 7 MMOL/L (8-16) L 05/03/20 14:45 BUN 7.2 mg/dL (7-18) 05/03/20 14:45 Creatinine 1.0 mg/dL (0.55-1.3) 05/03/20 14:45 Est GFR (CKD-EPI)AfAm 124.14 05/03/20 14:45 Est GFR (CKD-EPI)NonAf 107.11 05/03/20 14:45 Random Glucose 110 mg/dL (74-106) H 05/03/20 14:45 Fasting Glucose 87 mg/dL (74-106) 05/06/20 07:45 Calcium 9.3 mg/dL (8.5-10.1) 05/03/20 14:45 Total Bilirubin 0.9 mg/dL (0.2-1) 05/03/20 14:45 AST 23 U/L (15-37) 05/03/20 14:45 ALT 36 U/L (13-61) 05/03/20 14:45 Alkaline Phosphatase 73 U/L (45-117) 05/03/20 14:45 Total Protein 8.0 g/dl (6.4-8.2) 05/03/20 14:45 Albumin 4.4 g/dl (3.4-5.0) 05/03/20 14:45 Syphilis Serology Non-reactive (NONREACTIVE) 05/03/20 14:45 COVID-19 (BENNIE) Not detected (Not Detected) 05/03/20 15:00 HIV Ag/Ab Combo Qual Negative (NEGATIVE) 05/03/20 15:00 Labs noted. Assessment: 05/06/20 09:34 AOX3, in no acute respiratory distress. Full ROM, ambulating in the unit. Withdrawal symptoms. Plan: continue detox.
[2020-05-06] MEDS ORDERED: METHADONE (DETOX) 10 MG, METHADONE (DETOX) 5 MG PO ONE (10:00)
[2020-05-06] MEDS: NICOTINE 7 MG/24 HOURS TOPICAL PATCH TD SCH (10:21)
[2020-05-06] MEDS: PRENATAL VITAMINS W/ FOLIC ACID TABLET (FP) PO SCH (10:21)
[2020-05-06] MEDS: METHOCARBAMOL 500 MG TABLET PO PRN ×2 (10:23→17:24)
[2020-05-06] MEDS: MELATONIN 5 MG TABLETS PO SCH (22:24)
[2020-05-06] MEDS: THIAMINE HCL 100 MG TABLET (FP) PO SCH (22:24)
[2020-05-07] MEDS ORDERED: chlordiazePOXIDE HCL 10 MG CAPSULE PO SCH (05:00)
[2020-05-07] MEDS: hydrOXYzine PAMOATE 25 MG CAPSULE (FP) PO SCH ×5 (06:26→22:04)
[2020-05-07] MEDS ORDERED: METHADONE HCL 10 MG TABLET (FOR DETOX USE ONLY) PO ONE (10:00)
--- NOTE | 2020-05-07 11:00 | PN ---
BHS COWS - Scale Resting Pulse: 0= [place] 80 or Below Sweatin= No chills or Flushing Restless Observation: 0= Sits Still Pupil Size: 0= Normal to Room Light Bone or Joint Aches: 0= None Runny Nose/ Eye Tearin= Runny Nose/Eyes GI Upset > 30mins: 0= None Tremor Observation of Outstretched Hands: 0= None Yawning Observation: 0= None Anxiety or Irritability: 1=Feels Anxious/Irritable Goose Flesh Skin: 0=Smooth Skin COWS Score: 3 BHS Progress Note (SOAP) Subjective: 19 years old male ws admitted on 05/03/20 for opiate withdrawal sx mangement treating with methadone detox regiment feels better today discussing aftercare with staff mr yan prefers to go to [facility] for suboxone maintenance regiment mr yan agrees to go to [facility] for maintenance program Objective: 05/07/20 11:02 Vital Signs - 24 hr 05/06/20 05/06/20 05/06/20 12:55 16:36 20:42 Temperature 97.7 F 97.8 F 97.3 F L Pulse Rate 63 61 62 Respiratory 18 18 18 Rate Blood Pressure 117/58 L 112/64 117/66 O2 Sat by Pulse 98 98 Oximetry (%) 05/07/20 05/07/20 06:09 09:15 Temperature 96.9 F L 97.5 F L Pulse Rate 58 L 54 L Respiratory 18 18 Rate Blood Pressure 101/61 103/58 L O2 Sat by Pulse 98 Oximetry (%) Laboratory Tests 05/03/20 05/03/20 05/03/20 14:45 14:45 14:45 WBC 8.2 RBC 5.08 Hgb 15.0 Hct 43.4 MCV 85.4 MCH 29.4 MCHC 34.4 RDW 13.3 Plt Count 281 MPV 8.6 D Sodium 138 Potassium 4.1 Chloride 104 Carbon Dioxide 27 Anion Gap 7 L BUN 7.2 Creatinine 1.0 Est GFR (CKD-EPI)AfAm 124.14 Est GFR (CKD-EPI)NonAf 107.11 Random Glucose 110 H Fasting Glucose Calcium 9.3 Total Bilirubin 0.9 AST 23 ALT 36 Alkaline Phosphatase 73 Total Protein 8.0 Albumin 4.4 Syphilis Serology Non-reactive COVID-19 ([facility]ENNIE) HIV Ag/Ab Combo Qual 05/03/20 05/03/20 05/06/20 15:00 15:00 07:45 WBC RBC Hgb Hct MCV MCH MCHC RDW Plt Count MPV Sodium Potassium Chloride Carbon Dioxide Anion Gap BUN Creatinine Est GFR (CKD-EPI)AfAm Est GFR (CKD-EPI)NonAf Random Glucose Fasting Glucose 87 Calcium Total Bilirubin AST ALT Alkaline Phosphatase Total Protein Albumin Syphilis Serology COVID-19 (BENNIE) Not detected HIV Ag/Ab Combo Qual Negative lab noted Assessment: 05/07/20 11:03 opiate withdrawal Plan: methadone regiment
[2020-05-07] MEDS: NICOTINE 7 MG/24 HOURS TOPICAL PATCH TD SCH (11:13)
[2020-05-07] MEDS: PRENATAL VITAMINS W/ FOLIC ACID TABLET (FP) PO SCH (11:13)
[2020-05-07] MEDS: METHOCARBAMOL 500 MG TABLET PO PRN (17:36)
[2020-05-07] MEDS ORDERED: MASKS NR ONE (18:56)
[2020-05-07] MEDS: THIAMINE HCL 100 MG TABLET (FP) PO SCH (22:04)
[2020-05-07] MEDS: MELATONIN 5 MG TABLETS PO SCH (22:04)
[2020-05-08] MEDS ORDERED: chlordiazePOXIDE HCL 10 MG CAPSULE PO ONE (05:00)
[2020-05-08] MEDS: hydrOXYzine PAMOATE 25 MG CAPSULE (FP) PO SCH (05:57)
[2020-05-08] MEDS ORDERED: METHADONE HCL 5 MG TABLET (FOR DETOX USE ONLY) PO ONE (06:00)
[2020-05-08 09:19] VITALS: BP 119/73; PULSE 74; TEMP 97.5
--- NOTE | 2020-05-08 09:24 | PN ---
BHS COWS - Scale Anxiety or Irritability: 1=Feels Anxious/Irritable BHS Progress Note (SOAP) Subjective: alert,no complaint Objective: 05/08/20 10:47 Vital Signs Temperature 97.5 F L 05/08/20 08:39 Pulse Rate 74 05/08/20 08:39 Respiratory Rate 18 05/08/20 08:39 Blood Pressure 119/73 05/08/20 08:39 O2 Sat by Pulse Oximetry (%) 99 05/08/20 05:15 Assessment: 05/08/20 10:47 detox completed,no withdrawal symptom Plan: stable for discharge today,follow up with after care program as arrangement
--- NOTE | 2020-05-08 09:24 | DS ---
[facility] Detox Discharge Summary Admission Date: 05/03/20 Discharge Date: 05/08/20 - History Present History: Cannabis Dependence, Cocaine Dependence, Opioid Dependence Additional Comments: alert,oriented x 3 ambulation on the unit lung clear on auscultation bilaterally abdomen soft,no distension,no pain,no tenderness no edema of legs detox completed,no withdrawal symptom stable for discharge today declined rehab follow up with after care program as arrangement mat methadone maintenance clinic at [facility] or [facility] total time of discharge 35 minutes Pertinent Past History: history of bipolar disorder nicotine dependence - Physical Exam Results Vital Signs: Vital Signs Temperature 97.5 F L 05/08/20 08:39 Pulse Rate 74 05/08/20 08:39 Respiratory Rate 18 05/08/20 08:39 Blood Pressure 119/73 05/08/20 08:39 O2 Sat by Pulse Oximetry (%) 99 05/08/20 05:15 Pertinent Admission Physical Exam Findings: withdrawal signs and symptom Laboratory Last Values WBC 8.2 K/mm3 (4.0-10.0) 05/03/20 14:45 RBC 5.08 M/mm3 (4.00-5.60) 05/03/20 14:45 Hgb 15.0 GM/dL (11.7-16.9) 05/03/20 14:45 Hct 43.4 % (35.4-49) 05/03/20 14:45 MCV 85.4 fl (80-96) 05/03/20 14:45 MCH 29.4 pg (25.7-33.7) 05/03/20 14:45 MCHC 34.4 g/dl (32.0-35.9) 05/03/20 14:45 RDW 13.3 % (11.9-15.9) 05/03/20 14:45 Plt Count 281 K/MM3 (134-434) 05/03/20 14:45 MPV 8.6 fl (7.5-11.1) D 05/03/20 14:45 Sodium 138 mmol/L (136-145) 05/03/20 14:45 Potassium 4.1 mmol/L (3.5-5.1) 05/03/20 14:45 Chloride 104 mmol/L (98-107) 05/03/20 14:45 Carbon Dioxide 27 mmol/L (21-32) 05/03/20 14:45 Anion Gap 7 MMOL/L (8-16) L 05/03/20 14:45 BUN 7.2 mg/dL (7-18) 05/03/20 14:45 Creatinine 1.0 mg/dL (0.55-1.3) 05/03/20 14:45 Est GFR (CKD-EPI)AfAm 124.14 05/03/20 14:45 Est GFR (CKD-EPI)NonAf 107.11 05/03/20 14:45 Random Glucose 110 mg/dL (74-106) H 05/03/20 14:45 Fasting Glucose 87 mg/dL (74-106) 05/06/20 07:45 Calcium 9.3 mg/dL (8.5-10.1) 05/03/20 14:45 Total Bilirubin 0.9 mg/dL (0.2-1) 05/03/20 14:45 AST 23 U/L (15-37) 05/03/20 14:45 ALT 36 U/L (13-61) 05/03/20 14:45 Alkaline Phosphatase 73 U/L (45-117) 05/03/20 14:45 Total Protein 8.0 g/dl (6.4-8.2) 05/03/20 14:45 Albumin 4.4 g/dl (3.4-5.0) 05/03/20 14:45 Syphilis Serology Non-reactive (NONREACTIVE) 05/03/20 14:45 COVID-19 ([facility]ENNIE) Not detected (Not Detected) 05/03/20 15:00 HIV Ag/Ab Combo Qual Negative (NEGATIVE) 05/03/20 15:00 Vital Signs Temperature 97.5 F L 05/08/20 08:39 Pulse Rate 74 05/08/20 08:39 Respiratory Rate 18 05/08/20 08:39 Blood Pressure 119/73 05/08/20 08:39 O2 Sat by Pulse Oximetry (%) 99 05/08/20 05:15 - Treatment Hospital Course: Detox Protocol Followed, Detoxed Safely, Responded well, Discharged Condition Good, Rehab Referral Accepted Patient has Accepted a Rehab Referral to: declined - Medication Discharge Medications: Ambulatory Orders Naloxone HCl [Narcan] 4 mg NS ASDIR PRN #1 spray 10/18/19 - Diagnosis (1) Opioid dependence with withdrawal Current Visit: Yes Status: Acute (2) Cannabis dependence Current Visit: Yes Status: Acute (3) Cocaine use disorder, moderate, in early remission Current Visit: Yes Status: Acute (4) H/O bipolar disorder Current Visit: Yes Status: Chronic (5) Nicotine use disorder Current Visit: No Status: Acute - AMA Did Patient Leave Against Medical Advice: No
== END 2020-05-08 09:55 | disposition home or self-care (01) | DRG 773 ==
LOC: YASAS 13:14 → Y3N 15:29
PROVIDERS: ADMIT Allergy & Immunology; ATTEND Allergy & Immunology
PROC: HZ2ZZZZ Detoxification Services for Substance Abuse Treatment (ICD-10-PCS; principal; 2020-05-03)
DX: F11.23 Opioid dependence with withdrawal (principal); F14.20 Cocaine dependence, uncomplicated; F12.20 Cannabis dependence, uncomplicated; F17.210 Nicotine dependence, cigarettes, uncomplicated; F19.282 Other psychoactive substance dependence with psychoactive substance-induced sleep disorder; F19.24 Other psychoactive substance dependence with psychoactive substance-induced mood disorder; F31.9 Bipolar disorder, unspecified; F43.10 Post-traumatic stress disorder, unspecified; F41.8 Other specified anxiety disorders; Z87.81 Personal history of (healed) traumatic fracture; Z56.0 Unemployment, unspecified
CPT/HCPCS: 36415; 80053; 82947; 85027; 86780; 87389; U0003

== ENCOUNTER 2020-08-05 15:28 | Inpatient (IN) | payer OTHER ==
[2020-08-05 21:16] VITALS: BMI 31.1
[2020-08-06] MEDS ORDERED: NICOTINE POLACRILEX 2 MG GUM BUC PRN (00:28)
[2020-08-06] MEDS ORDERED: MENTHOL/PHENOL 1 EACH UD MM PRN (00:28)
[2020-08-06] MEDS ORDERED: MAG HYDROX/AL HYDROX/SIMETH 30 ML UNIT-DOSE CUP PO PRN (00:28)
[2020-08-06] MEDS ORDERED: BISMUTH SUBSALICYLATE 524 MG/30 ML UD PO PRN (00:28)
[2020-08-06] MEDS ORDERED: MAGNESIUM CITRATE 300 ML BOTTLE PO PRN (00:28)
[2020-08-06] MEDS ORDERED: MAGNESIUM HYDROX 2400MG/30ML ORAL SUSPENSION 30 ML CUP PO PRN (00:28)
[2020-08-06] MEDS ORDERED: ONDANSETRON *ODT* 4 MG TABLET SL PRN (00:28)
[2020-08-06] MEDS ORDERED: IBUPROFEN 400 MG TABLET (FP) PO PRN (00:28)
[2020-08-06] MEDS ORDERED: ACETAMINOPHEN 325 MG TABLET (FP) PO PRN ×2 (00:28)
[2020-08-06] MEDS ORDERED: P-EPHED 60MG/TRIPROLIDI 2.5MG TABLET PO PRN (00:31)
[2020-08-06] MEDS ORDERED: METHADONE HCL 5 MG TABLET PO ONE (00:32)
[2020-08-06] MEDS ORDERED: cloNIDine HCL 0.1 MG TABLET PO PRN (00:32)
[2020-08-06] MEDS ORDERED: METHADONE HCL 5 MG TABLET (FOR DETOX USE ONLY) ONE (08:30)
[2020-08-06] MEDS ORDERED: METHADONE HCL 10 MG TABLET (FOR DETOX USE ONLY) ONE (08:30)
[2020-08-06] MEDS: NICOTINE 14 MG/24 HOURS TOPICAL PATCH TD SCH (09:01)
[2020-08-06] MEDS: PRENATAL VITAMINS W/ FOLIC ACID TABLET (FP) PO SCH (09:02)
[2020-08-06] MEDS: METHOCARBAMOL 500 MG TABLET PO PRN (09:04)
[2020-08-06 09:27] LABS: HEMATOCRIT 43.3 % (35.4-49); HEMOGLOBIN 14.5 GM/dL (11.7-16.9); MCH 29.1 pg (25.7-33.7); MCHC 33.4 g/dl (32.0-35.9); MEAN CELL VOLUME 87.1 fl (80-96); MEAN PLT VOLUME 8.4 fl (7.5-11.1); PLATELET COUNT 308 K/MM3 (134-434); RBC 4.98 M/mm3 (4.00-5.60); RDW 13.6 % (11.9-15.9); WHITE BLOOD COUNT 9.5 K/mm3 (4.0-10.0)
[2020-08-06 09:28] LABS: POTASSIUM 3.9 mmol/L (3.5-5.1)
[2020-08-06 09:37] LABS: ALBUMIN 4.1 g/dl (3.4-5.0); CALCIUM 8.9 mg/dL (8.5-10.1)
[2020-08-06 09:40] LABS: CREATININE 1.2 mg/dL (0.55-1.3)
[2020-08-06 09:42] LABS: TOT PROT 7.4 g/dl (6.4-8.2)
[2020-08-06] MEDS ORDERED: METHADONE (DETOX) 10 MG, METHADONE (DETOX) 5 MG PO ONE (10:00)
[2020-08-06] MEDS: hydrOXYzine PAMOATE 25 MG CAPSULE (FP) PO PRN (12:25)
[2020-08-06] MEDS: LIDOCAINE 5% TOPICAL PATCH TP SCH (14:06)
[2020-08-06] MEDS: THIAMINE HCL 100 MG TABLET (FP) PO SCH (22:05)
[2020-08-06] MEDS: LIDOCAINE PATCH REMOVAL MC SCH (22:05)
[2020-08-06] MEDS: QUEtiapine FUMARATE 50 MG TABLET PO SCH (22:05)
[2020-08-06] MEDS: MELATONIN 5 MG TABLETS PO SCH (22:05)
[2020-08-07] MEDS ORDERED: METHADONE HCL 10 MG TABLET (FOR DETOX USE ONLY) PO ONE (10:00)
[2020-08-07] MEDS: PRENATAL VITAMINS W/ FOLIC ACID TABLET (FP) PO SCH (10:14)
[2020-08-07] MEDS: LIDOCAINE 5% TOPICAL PATCH TP SCH (10:14)
[2020-08-07] MEDS: NICOTINE 14 MG/24 HOURS TOPICAL PATCH TD SCH (10:14)
[2020-08-07] MEDS: hydrOXYzine PAMOATE 25 MG CAPSULE (FP) PO PRN ×2 (11:29→17:31)
[2020-08-07] MEDS ORDERED: FLU VACCINE (FLULAVAL) PF 60 MCG/0.5 ML SYRINGE 2020-2021 IM ONE (12:01)
[2020-08-07] MEDS: QUEtiapine FUMARATE 50 MG TABLET PO SCH (22:12)
[2020-08-07] MEDS: THIAMINE HCL 100 MG TABLET (FP) PO SCH (22:12)
[2020-08-07] MEDS: LIDOCAINE PATCH REMOVAL MC SCH (22:12)
[2020-08-07] MEDS: MELATONIN 5 MG TABLETS PO SCH (22:13)
[2020-08-08] MEDS ORDERED: METHADONE HCL 10 MG TABLET (FOR DETOX USE ONLY) PO ONE (10:00)
[2020-08-08] MEDS: PRENATAL VITAMINS W/ FOLIC ACID TABLET (FP) PO SCH (10:14)
[2020-08-08] MEDS: NICOTINE 14 MG/24 HOURS TOPICAL PATCH TD SCH (10:15)
[2020-08-08] MEDS: LIDOCAINE 5% TOPICAL PATCH TP SCH (10:15)
[2020-08-08] MEDS: hydrOXYzine PAMOATE 25 MG CAPSULE (FP) PO PRN ×2 (10:17→17:29)
[2020-08-08] MEDS: METHOCARBAMOL 500 MG TABLET PO PRN ×2 (10:17→17:30)
[2020-08-08 17:43] VITALS: BP 134/74
[2020-08-08 18:14] VITALS: PULSE 89; TEMP 97.3
[2020-08-09] MEDS ORDERED: METHADONE (DETOX) 10 MG, METHADONE (DETOX) 5 MG PO ONE (10:00)
[2020-08-10] MEDS ORDERED: METHADONE HCL 10 MG TABLET (FOR DETOX USE ONLY) PO ONE (10:00)
[2020-08-11] MEDS ORDERED: METHADONE HCL 5 MG TABLET (FOR DETOX USE ONLY) PO ONE (06:00)
== END 2020-08-08 18:33 | disposition left against medical advice (07) | DRG 770 ==
LOC: YASAS 15:28 → Y3N 23:51
PROVIDERS: ADMIT Allergy & Immunology; ATTEND Allergy & Immunology
PROC: HZ2ZZZZ Detoxification Services for Substance Abuse Treatment (ICD-10-PCS; principal; 2020-08-05)
DX: F11.23 Opioid dependence with withdrawal (principal); F14.20 Cocaine dependence, uncomplicated; F12.20 Cannabis dependence, uncomplicated; F17.210 Nicotine dependence, cigarettes, uncomplicated; F41.9 Anxiety disorder, unspecified; F31.9 Bipolar disorder, unspecified; F39 Unspecified mood [affective] disorder; F43.10 Post-traumatic stress disorder, unspecified; F19.280 Other psychoactive substance dependence with psychoactive substance-induced anxiety disorder; F19.282 Other psychoactive substance dependence with psychoactive substance-induced sleep disorder; R00.1 Bradycardia, unspecified; E86.0 Dehydration; E66.9 Obesity, unspecified; Z68.31 Body mass index [BMI] 31.0-31.9, adult
CPT/HCPCS: 36415; 80053; 85027; 86780; C9803; G0008; J0735; Q2036; U0003

== ENCOUNTER 2020-10-22 10:46 | Inpatient (IN) | payer OTHER ==
[2020-10-22] MEDS ORDERED: METHADONE HCL 10 MG TABLET (FOR DETOX USE ONLY) PO ONE (13:03)
[2020-10-22] MEDS ORDERED: MAG HYDROX/AL HYDROX/SIMETH 30 ML UNIT-DOSE CUP PO PRN (13:03)
[2020-10-22] MEDS ORDERED: MAGNESIUM CITRATE 300 ML BOTTLE PO PRN (13:03)
[2020-10-22] MEDS ORDERED: MENTHOL/PHENOL 1 EACH UD MM PRN (13:03)
[2020-10-22] MEDS ORDERED: BISMUTH SUBSALICYLATE 524 MG/30 ML UD PO PRN (13:03)
[2020-10-22] MEDS ORDERED: MAGNESIUM HYDROX 2400MG/30ML ORAL SUSPENSION 30 ML CUP PO PRN (13:03)
[2020-10-22] MEDS ORDERED: ACETAMINOPHEN 325 MG TABLET (FP) PO PRN ×2 (13:03)
[2020-10-22] MEDS ORDERED: cloNIDine HCL 0.1 MG TABLET PO PRN (13:03)
[2020-10-22] MEDS ORDERED: NALOXONE HCL 0.4 MG/ML VIAL IM PRN (13:03)
[2020-10-22] MEDS ORDERED: IBUPROFEN 400 MG TABLET (FP) PO PRN (13:03)
[2020-10-22] MEDS ORDERED: NICOTINE POLACRILEX 2 MG GUM BUC PRN (13:03)
[2020-10-22 13:30] VITALS: BMI 32.3
[2020-10-22] MEDS: MELATONIN 5 MG TABLETS PO SCH (22:29)
[2020-10-22] MEDS: THIAMINE HCL 100 MG TABLET (FP) PO SCH (22:30)
[2020-10-23] MEDS ORDERED: METHADONE HCL 5 MG TABLET (FOR DETOX USE ONLY) ONE (08:53)
[2020-10-23] MEDS ORDERED: METHADONE HCL 10 MG TABLET (FOR DETOX USE ONLY) ONE (08:53)
[2020-10-23] MEDS ORDERED: METHADONE (DETOX) 20 MG, METHADONE (DETOX) 5 MG PO ONE (10:00)
[2020-10-23] MEDS: PRENATAL VITAMINS W/ FOLIC ACID TABLET (FP) PO SCH (10:16)
[2020-10-23] MEDS ORDERED: ONDANSETRON *ODT* 4 MG TABLET SL PRN (10:23)
[2020-10-23 10:46] LABS: HEMATOCRIT 39.9 % (35.4-49); HEMOGLOBIN 13.9 GM/dL (11.7-16.9); MCH 29.4 pg (25.7-33.7); MCHC 34.8 g/dl (32.0-35.9); MEAN CELL VOLUME 84.6 fl (80-96); MEAN PLT VOLUME 7.9 fl (7.5-11.1); PLATELET COUNT 263 K/MM3 (134-434); RBC 4.71 M/mm3 (4.00-5.60); RDW 13.2 % (11.9-15.9); WHITE BLOOD COUNT 7.4 K/mm3 (4.0-10.0)
[2020-10-23] MEDS: NICOTINE 7 MG/24 HOURS TOPICAL PATCH TD SCH (10:47)
[2020-10-23 10:52] LABS: POTASSIUM 4.6 mmol/L (3.5-5.1)
[2020-10-23 10:55] LABS: ALBUMIN 3.6 g/dl (3.4-5.0); BLOOD UREA NITROGEN 13.4 mg/dL (7-18)
[2020-10-23 11:02] LABS: BILIRUBIN,TOTAL 0.9 mg/dL (0.2-1)
[2020-10-23 11:03] LABS: TOT PROT 6.5 g/dl (6.4-8.2)
[2020-10-23] MEDS ORDERED: hydrOXYzine PAMOATE 25 MG CAPSULE (FP) PO PRN (11:05)
[2020-10-23 11:54] LABS: HIV INTERPRETATION NEGATIVE (NEGATIVE)
[2020-10-23] MEDS ORDERED: PNEUMOC 13-VAL CONJ-DIP CRM/PF 0.5 ML DISP.SYRIN IM ONE (12:00)
[2020-10-23] MEDS ORDERED: PNEUMOCOCCAL 23 VACCINE 0.5 ML VIAL IM ONE (12:00)
[2020-10-23] MEDS: hydrOXYzine PAMOATE 50 MG CAPSULE (FP) PO PRN ×2 (12:25→21:46)
[2020-10-23] MEDS: THIAMINE HCL 100 MG TABLET (FP) PO SCH (21:46)
[2020-10-23] MEDS: QUEtiapine FUMARATE 50 MG TABLET PO SCH (21:46)
[2020-10-23] MEDS: MELATONIN 5 MG TABLETS PO SCH (21:47)
[2020-10-24] MEDS ORDERED: METHADONE HCL 10 MG TABLET (FOR DETOX USE ONLY) PO ONE (10:00)
[2020-10-24] MEDS: PRENATAL VITAMINS W/ FOLIC ACID TABLET (FP) PO SCH (10:33)
[2020-10-24] MEDS: NICOTINE 7 MG/24 HOURS TOPICAL PATCH TD SCH (10:33)
[2020-10-24] MEDS: hydrOXYzine PAMOATE 50 MG CAPSULE (FP) PO PRN ×2 (10:35→14:46)
[2020-10-24] MEDS: QUEtiapine FUMARATE 50 MG TABLET PO SCH (22:34)
[2020-10-24] MEDS: MELATONIN 5 MG TABLETS PO SCH (22:34)
[2020-10-24] MEDS: THIAMINE HCL 100 MG TABLET (FP) PO SCH (22:35)
[2020-10-25] MEDS ORDERED: METHADONE HCL 5 MG TABLET (FOR DETOX USE ONLY) ONE (08:55)
[2020-10-25] MEDS ORDERED: METHADONE HCL 10 MG TABLET (FOR DETOX USE ONLY) ONE (08:55)
[2020-10-25] MEDS ORDERED: METHADONE (DETOX) 10 MG, METHADONE (DETOX) 5 MG PO ONE (10:00)
[2020-10-25] MEDS: PRENATAL VITAMINS W/ FOLIC ACID TABLET (FP) PO SCH (10:29)
[2020-10-25] MEDS: diazePAM 5 MG TABLET PO PRN ×3 (10:56→19:27)
[2020-10-25] MEDS: NICOTINE 7 MG/24 HOURS TOPICAL PATCH TD SCH (10:58)
[2020-10-25] MEDS: MELATONIN 5 MG TABLETS PO SCH (21:50)
[2020-10-25] MEDS: QUEtiapine FUMARATE 50 MG TABLET PO SCH (21:50)
[2020-10-25] MEDS: hydrOXYzine PAMOATE 50 MG CAPSULE (FP) PO PRN (21:50)
[2020-10-25] MEDS: THIAMINE HCL 100 MG TABLET (FP) PO SCH (21:50)
[2020-10-25] MEDS: METHOCARBAMOL 500 MG TABLET PO PRN (21:50)
[2020-10-26] MEDS ORDERED: METHADONE HCL 10 MG TABLET (FOR DETOX USE ONLY) PO ONE (10:00)
[2020-10-26] MEDS: NICOTINE 7 MG/24 HOURS TOPICAL PATCH TD SCH (10:24)
[2020-10-26] MEDS: PRENATAL VITAMINS W/ FOLIC ACID TABLET (FP) PO SCH (10:25)
[2020-10-26] MEDS: diazePAM 5 MG TABLET PO PRN ×3 (10:25→20:53)
[2020-10-26] MEDS: hydrOXYzine PAMOATE 50 MG CAPSULE (FP) PO PRN (13:53)
[2020-10-26] MEDS: METHOCARBAMOL 500 MG TABLET PO PRN (13:53)
[2020-10-26] MEDS: MELATONIN 5 MG TABLETS PO SCH (22:37)
[2020-10-26] MEDS: QUEtiapine FUMARATE 50 MG TABLET PO SCH (22:37)
[2020-10-26] MEDS: THIAMINE HCL 100 MG TABLET (FP) PO SCH (22:37)
[2020-10-27] MEDS: diazePAM 5 MG TABLET PO PRN (05:41)
[2020-10-27] MEDS ORDERED: METHADONE HCL 5 MG TABLET (FOR DETOX USE ONLY) PO ONE (06:00)
[2020-10-27 09:33] VITALS: BP 109/64; PULSE 69; TEMP 97.8
[2020-10-27] MEDS: PRENATAL VITAMINS W/ FOLIC ACID TABLET (FP) PO SCH (10:41)
[2020-10-27] MEDS: NICOTINE 7 MG/24 HOURS TOPICAL PATCH TD SCH (10:41)
== END 2020-10-27 12:55 | disposition other institution (70) | DRG 773 ==
LOC: YASAS 10:46 → Y6N 13:06
PROVIDERS: ADMIT Allergy & Immunology; ATTEND Allergy & Immunology
PROC: HZ2ZZZZ Detoxification Services for Substance Abuse Treatment (ICD-10-PCS; principal; 2020-10-22)
DX: F11.23 Opioid dependence with withdrawal (principal); F14.20 Cocaine dependence, uncomplicated; F12.20 Cannabis dependence, uncomplicated; F17.210 Nicotine dependence, cigarettes, uncomplicated; F19.280 Other psychoactive substance dependence with psychoactive substance-induced anxiety disorder; F19.282 Other psychoactive substance dependence with psychoactive substance-induced sleep disorder; F39 Unspecified mood [affective] disorder; Z86.59 Personal history of other mental and behavioral disorders
CPT/HCPCS: 36415; 80053; 85027; 86780; 87389; 90732; 93005; 93010; C9803; G0009; Q0162; U0003

== ENCOUNTER 2021-06-18 13:53 | Inpatient (IN) | payer OTHER ==
[2021-06-18 16:21] VITALS: BMI 32.6
[2021-06-18] MEDS ORDERED: MAGNESIUM HYDROX 2400MG/30ML ORAL SUSPENSION 30 ML CUP PO PRN (22:14)
[2021-06-18] MEDS ORDERED: MENTHOL/PHENOL 1 EACH UD MM PRN (22:14)
[2021-06-18] MEDS ORDERED: IBUPROFEN 400 MG TABLET (FP) PO PRN (22:14)
[2021-06-18] MEDS ORDERED: ONDANSETRON *ODT* 4 MG TABLET SL PRN (22:14)
[2021-06-18] MEDS ORDERED: NICOTINE POLACRILEX 2 MG GUM BUC PRN (22:14)
[2021-06-18] MEDS ORDERED: MAGNESIUM CITRATE 300 ML BOTTLE PO PRN (22:14)
[2021-06-18] MEDS ORDERED: cloNIDine HCL 0.1 MG TABLET PO PRN (22:14)
[2021-06-18] MEDS ORDERED: MAG HYDROX/AL HYDROX/SIMETH 30 ML UNIT-DOSE CUP PO PRN (22:14)
[2021-06-18] MEDS ORDERED: BISMUTH SUBSALICYLATE 524 MG/30 ML PO PRN (22:14)
[2021-06-18] MEDS ORDERED: ACETAMINOPHEN 325 MG TABLET (FP) PO PRN ×2 (22:14)
[2021-06-18] MEDS ORDERED: methaDONE HCL 10 MG TABLET (FOR DETOX USE ONLY) PO ONE (23:15)
[2021-06-18] MEDS: METHOCARBAMOL 500 MG TABLET PO PRN (23:32)
[2021-06-18] MEDS: diazePAM 5 MG TABLET PO PRN (23:32)
[2021-06-18] MEDS: MELATONIN 5 MG TABLETS PO PRN (23:37)
[2021-06-19] MEDS: diazePAM 5 MG TABLET PO PRN ×3 (05:36→17:33)
[2021-06-19] MEDS ORDERED: methaDONE HCL 10 MG TABLET (FOR DETOX USE ONLY) ONE (09:38)
[2021-06-19] MEDS: METHOCARBAMOL 500 MG TABLET PO PRN (10:12)
[2021-06-19] MEDS: PRENATAL VITAMINS W/ FOLIC ACID TABLET (FP) PO SCH (10:12)
[2021-06-19 11:34] LABS: HEMATOCRIT 36.9 % (35.4-49); HEMOGLOBIN 12.8 GM/dL (11.7-16.9); MCH 28.4 pg (25.7-33.7); MCHC 34.6 g/dl (32.0-35.9); MEAN CELL VOLUME 82.1 fl (80-96); MEAN PLT VOLUME 7.9 fl (7.5-11.1); PLATELET COUNT 251 10^3/uL (134-434); RDW 13.2 % (11.9-15.9); WHITE BLOOD COUNT 8.4 K/mm3 (4.0-10.0)
[2021-06-19 11:58] LABS: ALBUMIN 3.4 g/dl (3.4-5.0); BILIRUBIN,TOTAL 1.3 mg/dL (0.2-1); BLOOD UREA NITROGEN 12.4 mg/dL (7-18); CALCIUM 8.4 mg/dL (8.5-10.1); TOT PROT 6.6 g/dl (6.4-8.2)
[2021-06-19 12:49] LABS: HIV INTERPRETATION NEGATIVE (NEGATIVE)
[2021-06-19] MEDS ORDERED: FLU VACC QS2021-22(6MOS UP)/PF 60 MCG/0.5 ML SYRINGE IM ONE (16:29)
[2021-06-19] MEDS: NICOTINE 10 MG CARTRIDGE (INHALER) IH PRN (17:33)
[2021-06-19] MEDS: MELATONIN 5 MG TABLETS PO PRN (22:02)
[2021-06-19] MEDS: THIAMINE HCL 100 MG TABLET (FP) PO SCH (22:02)
[2021-06-20] MEDS ORDERED: methaDONE HCL 10 MG TABLET (FOR DETOX USE ONLY) PO ONE (10:00)
[2021-06-20] MEDS: METHOCARBAMOL 500 MG TABLET PO PRN ×2 (10:27→22:09)
[2021-06-20] MEDS: diazePAM 5 MG TABLET PO PRN ×2 (10:27→17:49)
[2021-06-20] MEDS: PRENATAL VITAMINS W/ FOLIC ACID TABLET (FP) PO SCH (10:28)
[2021-06-20] MEDS: NICOTINE 10 MG CARTRIDGE (INHALER) IH PRN (17:50)
[2021-06-20] MEDS: MELATONIN 5 MG TABLETS PO PRN (22:07)
[2021-06-20] MEDS: THIAMINE HCL 100 MG TABLET (FP) PO SCH (22:07)
[2021-06-21] MEDS: diazePAM 5 MG TABLET PO PRN ×3 (05:39→20:00)
[2021-06-21] MEDS ORDERED: methaDONE HCL 10 MG TABLET (FOR DETOX USE ONLY) ONE (09:30)
[2021-06-21] MEDS: METHOCARBAMOL 500 MG TABLET PO PRN ×2 (10:14→17:56)
[2021-06-21] MEDS: PRENATAL VITAMINS W/ FOLIC ACID TABLET (FP) PO SCH (10:14)
[2021-06-21] MEDS: NICOTINE 10 MG CARTRIDGE (INHALER) IH PRN ×2 (12:39→17:56)
[2021-06-21] MEDS: THIAMINE HCL 100 MG TABLET (FP) PO SCH (22:29)
[2021-06-21] MEDS: MELATONIN 5 MG TABLETS PO PRN (22:29)
[2021-06-22] MEDS ORDERED: methaDONE HCL 10 MG TABLET (FOR DETOX USE ONLY) PO ONE (10:00)
[2021-06-22] MEDS: PRENATAL VITAMINS W/ FOLIC ACID TABLET (FP) PO SCH (10:20)
[2021-06-22] MEDS: METHOCARBAMOL 500 MG TABLET PO PRN ×2 (10:20→22:14)
[2021-06-22] MEDS: THIAMINE HCL 100 MG TABLET (FP) PO SCH (22:14)
[2021-06-22] MEDS: MELATONIN 5 MG TABLETS PO PRN (22:14)
[2021-06-23 09:01] VITALS: BP 127/74; PULSE 58; TEMP 97.1
== END 2021-06-23 10:46 | disposition other institution (70) | DRG 773 ==
LOC: YASAS 13:53 → Y3N 22:44
PROVIDERS: ADMIT Allergy & Immunology; ATTEND Allergy & Immunology
PROC: HZ2ZZZZ Detoxification Services for Substance Abuse Treatment (ICD-10-PCS; principal; 2021-06-18)
DX: F11.23 Opioid dependence with withdrawal (principal); F14.20 Cocaine dependence, uncomplicated; F13.232 Sedative, hypnotic or anxiolytic dependence with withdrawal with perceptual disturbance; F12.20 Cannabis dependence, uncomplicated; F17.210 Nicotine dependence, cigarettes, uncomplicated; Z98.890 Other specified postprocedural states
CPT/HCPCS: 36415; 80053; 85027; 86780; 87389; 90686; C9803; U0003; U0005

== ENCOUNTER 2022-02-25 13:34 | Inpatient (IN) | payer OTHER ==
[2022-02-25 15:35] VITALS: BMI 33.9
[2022-02-25] MEDS ORDERED: DICYCLOMINE HCL 10 MG CAPSULE PO PRN (16:37)
[2022-02-25] MEDS ORDERED: LOPERAMIDE HCL 2 MG CAPSULE PO PRN (16:37)
[2022-02-25] MEDS ORDERED: ONDANSETRON *ODT* 4 MG TABLET SL PRN (16:37)
[2022-02-25] MEDS ORDERED: ACETAMINOPHEN 325 MG TABLET (FP) PO PRN ×2 (16:37)
[2022-02-25] MEDS ORDERED: IBUPROFEN 400 MG TABLET (FP) PO PRN (16:37)
[2022-02-25] MEDS ORDERED: P-EPHED 60MG/TRIPROLIDI 2.5MG TABLET PO PRN (16:37)
[2022-02-25] MEDS ORDERED: MAGNESIUM CITRATE 300 ML BOTTLE PO PRN (16:37)
[2022-02-25] MEDS ORDERED: IBUPROFEN 600 MG TABLET (FP) PO PRN (16:37)
[2022-02-25] MEDS ORDERED: BENZOCAINE/MENTHOL (CHLORASEPTIC ) LOZENGE MM PRN (16:37)
[2022-02-25] MEDS ORDERED: BISMUTH SUBSALICYLATE 524 MG/30 ML PO PRN (16:37)
[2022-02-25] MEDS ORDERED: MAGNESIUM HYDROX 2400MG/30ML ORAL SUSPENSION 30 ML CUP PO PRN (16:37)
[2022-02-25] MEDS: diazePAM 5 MG TABLET PO PRN ×2 (18:16→22:24)
[2022-02-25] MEDS: hydrOXYzine PAMOATE 25 MG CAPSULE (FP) PO PRN ×2 (18:17→22:25)
[2022-02-25] MEDS: NICOTINE 10 MG CARTRIDGE (INHALER) IH PRN (19:04)
[2022-02-25] MEDS: THIAMINE HCL 100 MG TABLET (FP) PO SCH (22:24)
[2022-02-25] MEDS: MELATONIN 5 MG TABLETS PO SCH (22:25)
[2022-02-25] MEDS: METHOCARBAMOL 500 MG TABLET PO PRN (22:25)
[2022-02-26] MEDS ORDERED: methaDONE HCL 10 MG TABLET PO ONE (10:10)
[2022-02-26] MEDS: PRENATAL VITAMINS W/ FOLIC ACID TABLET (FP) PO SCH (10:29)
[2022-02-26] MEDS: hydrOXYzine PAMOATE 25 MG CAPSULE (FP) PO PRN (10:30)
[2022-02-26] MEDS: METHOCARBAMOL 500 MG TABLET PO PRN (10:30)
[2022-02-26] MEDS: diazePAM 5 MG TABLET PO SCH ×3 (10:32→22:49)
[2022-02-26 11:32] LABS: HEMATOCRIT 41.6 % (35.4-49); HEMOGLOBIN 13.9 GM/dL (11.7-16.9); MCH 27.1 pg (25.7-33.7); MCHC 33.4 g/dl (32.0-35.9); MEAN CELL VOLUME 81.1 fl (80-96); MEAN PLT VOLUME 8.2 fl (7.5-11.1); PLATELET COUNT 294 10^3/uL (134-434); RBC 5.13 M/mm3 (4.00-5.60); RDW 13.9 % (11.9-15.9); WHITE BLOOD COUNT 7.7 K/mm3 (4.0-10.0)
[2022-02-26 12:20] LABS: BLOOD UREA NITROGEN 8.8 mg/dL (7-18)
[2022-02-26 12:21] LABS: ALBUMIN 3.8 g/dl (3.4-5.0); CALCIUM 9.2 mg/dL (8.5-10.1)
[2022-02-26] MEDS: NICOTINE 10 MG CARTRIDGE (INHALER) IH PRN (12:21)
[2022-02-26 12:25] LABS: CREATININE 0.9 mg/dL (0.55-1.3)
[2022-02-26 12:27] LABS: BILIRUBIN,TOTAL 0.8 mg/dL (0.2-1); TOT PROT 7.3 g/dl (6.4-8.2)
[2022-02-26] MEDS: NICOTINE POLACRILEX 2 MG GUM BUC PRN (13:19)
[2022-02-26] MEDS: THIAMINE HCL 100 MG TABLET (FP) PO SCH (22:43)
[2022-02-26] MEDS: MIRTAZAPINE 15 MG TABLET (FP) PO SCH (22:44)
[2022-02-26] MEDS: MELATONIN 5 MG TABLETS PO SCH (22:45)
[2022-02-27] MEDS ORDERED: methaDONE HCL 10 MG TABLET PO ONE (06:00)
[2022-02-27] MEDS: diazePAM 5 MG TABLET PO SCH ×4 (06:03→22:28)
[2022-02-27] MEDS: hydrOXYzine PAMOATE 25 MG CAPSULE (FP) PO PRN ×2 (06:03→10:39)
[2022-02-27] MEDS: PRENATAL VITAMINS W/ FOLIC ACID TABLET (FP) PO SCH (10:39)
[2022-02-27] MEDS: NICOTINE 21 MG/24 HOURS TOPICAL PATCH TD SCH (11:02)
[2022-02-27] MEDS: valACYclovir HCL 500 MG TABLET (FP) PO SCH ×2 (14:14→22:30)
[2022-02-27] MEDS: THIAMINE HCL 100 MG TABLET (FP) PO SCH (22:28)
[2022-02-27] MEDS: MELATONIN 5 MG TABLETS PO SCH (22:28)
[2022-02-27] MEDS: MIRTAZAPINE 15 MG TABLET (FP) PO SCH (22:30)
[2022-02-28] MEDS ORDERED: methaDONE HCL 10 MG TABLET PO ONE (06:00)
[2022-02-28] MEDS ORDERED: methaDONE HCL 40 MG DISPERSABLE TABLET PO ONE (06:00)
[2022-02-28] MEDS: diazePAM 5 MG TABLET PO SCH ×3 (06:00→22:43)
[2022-02-28] MEDS: NICOTINE 10 MG CARTRIDGE (INHALER) IH PRN ×4 (09:17→22:45)
[2022-02-28] MEDS: diazePAM 5 MG TABLET PO PRN ×2 (10:28→17:44)
[2022-02-28] MEDS: PRENATAL VITAMINS W/ FOLIC ACID TABLET (FP) PO SCH (10:29)
[2022-02-28] MEDS: METHOCARBAMOL 500 MG TABLET PO PRN (10:29)
[2022-02-28] MEDS: NICOTINE 21 MG/24 HOURS TOPICAL PATCH TD SCH (10:29)
[2022-02-28] MEDS: valACYclovir HCL 500 MG TABLET (FP) PO SCH ×2 (10:29→22:43)
[2022-02-28] MEDS: hydrOXYzine PAMOATE 25 MG CAPSULE (FP) PO PRN ×2 (17:43→22:43)
[2022-02-28 18:27] LABS: HIV INTERPRETATION NEGATIVE (NEGATIVE)
[2022-02-28] MEDS: MAG HYDROX/AL HYDROX/SIMETH 30 ML UNIT-DOSE CUP PO PRN (22:42)
[2022-02-28] MEDS: THIAMINE HCL 100 MG TABLET (FP) PO SCH (22:43)
[2022-02-28] MEDS: MIRTAZAPINE 15 MG TABLET (FP) PO SCH (22:43)
[2022-02-28] MEDS: MELATONIN 5 MG TABLETS PO SCH (22:43)
[2022-03-01] MEDS ORDERED: methaDONE HCL 10 MG TABLET ONE (04:08)
[2022-03-01] MEDS ORDERED: methaDONE HCL 40 MG DISPERSABLE TABLET ONE (04:08)
[2022-03-01] MEDS: methaDONE 40 MG, methaDONE 10 MG PO SCH (05:42)
[2022-03-01] MEDS: METHOCARBAMOL 500 MG TABLET PO PRN ×3 (05:42→22:20)
[2022-03-01] MEDS: diazePAM 5 MG TABLET PO SCH ×2 (05:43→17:29)
[2022-03-01] MEDS ORDERED: methaDONE HCL 10 MG TABLET PO SCH (06:00)
[2022-03-01] MEDS: NICOTINE 21 MG/24 HOURS TOPICAL PATCH TD SCH (10:15)
[2022-03-01] MEDS: hydrOXYzine PAMOATE 25 MG CAPSULE (FP) PO PRN ×2 (10:15→22:35)
[2022-03-01] MEDS: valACYclovir HCL 500 MG TABLET (FP) PO SCH ×2 (10:15→22:20)
[2022-03-01] MEDS: PRENATAL VITAMINS W/ FOLIC ACID TABLET (FP) PO SCH (10:16)
[2022-03-01] MEDS: NICOTINE 10 MG CARTRIDGE (INHALER) IH PRN ×3 (10:32→22:36)
[2022-03-01] MEDS: MAG HYDROX/AL HYDROX/SIMETH 30 ML UNIT-DOSE CUP PO PRN ×2 (12:38→22:48)
[2022-03-01] MEDS: MELATONIN 5 MG TABLETS PO SCH (22:19)
[2022-03-01] MEDS: THIAMINE HCL 100 MG TABLET (FP) PO SCH (22:19)
[2022-03-01] MEDS: MIRTAZAPINE 15 MG TABLET (FP) PO SCH (22:20)
[2022-03-02] MEDS ORDERED: methaDONE HCL 40 MG DISPERSABLE TABLET ONE (03:16)
[2022-03-02] MEDS ORDERED: methaDONE HCL 10 MG TABLET ONE (03:16)
[2022-03-02] MEDS: methaDONE 40 MG, methaDONE 10 MG PO SCH (05:48)
[2022-03-02] MEDS ORDERED: diazePAM 5 MG TABLET PO ONE (06:00)
[2022-03-02] MEDS: NICOTINE 10 MG CARTRIDGE (INHALER) IH PRN (08:57)
[2022-03-02 09:15] VITALS: BP 132/89; PULSE 90; TEMP 98.2
[2022-03-02] MEDS: PRENATAL VITAMINS W/ FOLIC ACID TABLET (FP) PO SCH (10:15)
[2022-03-02] MEDS: valACYclovir HCL 500 MG TABLET (FP) PO SCH (10:15)
[2022-03-02] MEDS: MAG HYDROX/AL HYDROX/SIMETH 30 ML UNIT-DOSE CUP PO PRN (10:18)
[2022-03-02] MEDS: hydrOXYzine PAMOATE 25 MG CAPSULE (FP) PO PRN (10:18)
[2022-03-02] MEDS: NICOTINE POLACRILEX 2 MG GUM BUC PRN (10:18)
[2022-03-02] MEDS: METHOCARBAMOL 500 MG TABLET PO PRN (10:18)
[2022-03-02] MEDS: NICOTINE 21 MG/24 HOURS TOPICAL PATCH TD SCH (10:20)
== END 2022-03-02 12:45 | disposition other institution (70) | DRG 773 ==
LOC: YASAS 13:34 → Y6N 16:54
PROVIDERS: ADMIT Allergy & Immunology; ATTEND Surgery
PROC: HZ2ZZZZ Detoxification Services for Substance Abuse Treatment (ICD-10-PCS; principal; 2022-02-25)
DX: F11.23 Opioid dependence with withdrawal (principal); F13.232 Sedative, hypnotic or anxiolytic dependence with withdrawal with perceptual disturbance; F14.20 Cocaine dependence, uncomplicated; F12.20 Cannabis dependence, uncomplicated; F17.210 Nicotine dependence, cigarettes, uncomplicated; F19.280 Other psychoactive substance dependence with psychoactive substance-induced anxiety disorder; F19.24 Other psychoactive substance dependence with psychoactive substance-induced mood disorder; F39 Unspecified mood [affective] disorder; F43.10 Post-traumatic stress disorder, unspecified; A60.00 Herpesviral infection of urogenital system, unspecified; E66.9 Obesity, unspecified; Z68.33 Body mass index [BMI] 33.0-33.9, adult
CPT/HCPCS: 36415; 80053; 82947; 83036; 85027; 86780; 87389; C9803-CS; U0003; U0005

== ENCOUNTER 2022-04-02 15:36 | Inpatient (IN) | payer OTHER ==
[2022-04-02 18:05] VITALS: BMI 39.3
[2022-04-02] MEDS ORDERED: DICYCLOMINE HCL 10 MG CAPSULE PO PRN (18:45)
[2022-04-02] MEDS ORDERED: BISMUTH SUBSALICYLATE 524 MG/30 ML PO PRN (18:45)
[2022-04-02] MEDS ORDERED: ONDANSETRON *ODT* 4 MG TABLET SL PRN (18:45)
[2022-04-02] MEDS ORDERED: BENZOCAINE/MENTHOL (CHLORASEPTIC ) LOZENGE MM PRN (18:45)
[2022-04-02] MEDS ORDERED: MAGNESIUM HYDROX 2400MG/30ML ORAL SUSPENSION 30 ML CUP PO PRN (18:45)
[2022-04-02] MEDS ORDERED: MAGNESIUM CITRATE 300 ML BOTTLE PO PRN (18:45)
[2022-04-02] MEDS ORDERED: ACETAMINOPHEN 325 MG TABLET (FP) PO PRN (18:45)
[2022-04-02] MEDS ORDERED: LOPERAMIDE HCL 2 MG CAPSULE PO PRN (18:45)
[2022-04-02] MEDS ORDERED: IBUPROFEN 400 MG TABLET (FP) PO PRN (18:45)
[2022-04-02] MEDS ORDERED: IBUPROFEN 600 MG TABLET (FP) PO PRN (18:45)
[2022-04-02] MEDS ORDERED: ARTIFICIAL TEARS (POLYVINYL ALCOHOL) OPTH DROPS OU PRN (18:47)
[2022-04-02] MEDS ORDERED: MIRTAZAPINE 15 MG TABLET (FP) PO ONE (22:00)
[2022-04-02] MEDS ORDERED: MIRTAZAPINE 15 MG TABLET (FP) PO SCH (22:00)
[2022-04-02] MEDS: THIAMINE HCL 100 MG TABLET (FP) PO SCH (22:07)
[2022-04-02] MEDS: MELATONIN 5 MG TABLETS PO SCH (22:07)
[2022-04-02] MEDS: hydrOXYzine PAMOATE 25 MG CAPSULE (FP) PO SCH (22:07)
[2022-04-02] MEDS: NICOTINE 10 MG CARTRIDGE (INHALER) IH PRN (22:15)
[2022-04-02] MEDS: METHOCARBAMOL 500 MG TABLET PO PRN (22:19)
[2022-04-02] MEDS ORDERED: P-EPHED 60MG/TRIPROLIDI 2.5MG TABLET PO PRN (23:05)
[2022-04-03] MEDS: hydrOXYzine PAMOATE 25 MG CAPSULE (FP) PO SCH (07:25)
[2022-04-03] MEDS: methaDONE HCL 10 MG TABLET PO SCH (10:47)
[2022-04-03] MEDS: NICOTINE 14 MG/24 HOURS TOPICAL PATCH TD SCH (10:47)
[2022-04-03] MEDS: PRENATAL VITAMINS W/ FOLIC ACID TABLET (FP) PO SCH (10:47)
[2022-04-03] MEDS: diazePAM 5 MG TABLET PO SCH ×3 (10:48→22:11)
[2022-04-03] MEDS: METHOCARBAMOL 500 MG TABLET PO PRN ×2 (10:49→22:14)
[2022-04-03] MEDS: MAG HYDROX/AL HYDROX/SIMETH 30 ML UNIT-DOSE CUP PO PRN (11:12)
[2022-04-03 12:08] LABS: HEMATOCRIT 35.8 % (35.4-49); HEMOGLOBIN 12.6 GM/dL (11.7-16.9); MCH 28.4 pg (25.7-33.7); MCHC 35.2 g/dl (32.0-35.9); MEAN CELL VOLUME 80.7 fl (80-96); MEAN PLT VOLUME 7.4 fl (7.5-11.1); PLATELET COUNT 266 10^3/uL (134-434); RBC 4.44 M/mm3 (4.00-5.60); RDW 14.3 % (11.9-15.9); WHITE BLOOD COUNT 9.7 K/mm3 (4.0-10.0)
[2022-04-03 12:27] LABS: ALBUMIN 3.7 g/dl (3.4-5.0); CALCIUM 8.8 mg/dL (8.5-10.1)
[2022-04-03 12:28] LABS: BLOOD UREA NITROGEN 10.6 mg/dL (7-18)
[2022-04-03 12:31] LABS: CREATININE 0.9 mg/dL (0.55-1.3)
[2022-04-03 12:33] LABS: BILIRUBIN,TOTAL 0.7 mg/dL (0.2-1); TOT PROT 7.1 g/dl (6.4-8.2)
[2022-04-03] MEDS: hydrOXYzine PAMOATE 25 MG CAPSULE (FP) PO PRN (15:59)
[2022-04-03] MEDS: NICOTINE 10 MG CARTRIDGE (INHALER) IH PRN ×2 (16:00→22:21)
[2022-04-03] MEDS: diazePAM 5 MG TABLET PO PRN (20:59)
[2022-04-03] MEDS: busPIRone HCL 10 MG TABLET (FP) PO SCH (22:10)
[2022-04-03] MEDS: THIAMINE HCL 100 MG TABLET (FP) PO SCH (22:10)
[2022-04-03] MEDS: MIRTAZAPINE 15 MG TABLET (FP) PO SCH (22:10)
[2022-04-03] MEDS: MELATONIN 5 MG TABLETS PO SCH (22:10)
[2022-04-03] MEDS: ACETAMINOPHEN 325 MG TABLET (FP) PO PRN (22:13)
[2022-04-04] MEDS: methaDONE HCL 10 MG TABLET PO SCH (06:04)
[2022-04-04] MEDS: diazePAM 5 MG TABLET PO SCH ×4 (06:04→22:12)
[2022-04-04] MEDS: NICOTINE 10 MG CARTRIDGE (INHALER) IH PRN ×2 (07:44→13:43)
[2022-04-04] MEDS: NICOTINE 14 MG/24 HOURS TOPICAL PATCH TD SCH (10:13)
[2022-04-04] MEDS: hydrOXYzine PAMOATE 25 MG CAPSULE (FP) PO PRN (10:13)
[2022-04-04] MEDS: busPIRone HCL 10 MG TABLET (FP) PO SCH ×2 (10:13→22:13)
[2022-04-04] MEDS: PRENATAL VITAMINS W/ FOLIC ACID TABLET (FP) PO SCH (10:13)
[2022-04-04] MEDS: MAG HYDROX/AL HYDROX/SIMETH 30 ML UNIT-DOSE CUP PO PRN (13:43)
[2022-04-04] MEDS: diazePAM 5 MG TABLET PO PRN (13:43)
[2022-04-04] MEDS: MIRTAZAPINE 15 MG TABLET (FP) PO SCH (22:13)
[2022-04-04] MEDS: MELATONIN 5 MG TABLETS PO SCH (22:13)
[2022-04-04] MEDS: THIAMINE HCL 100 MG TABLET (FP) PO SCH (22:13)
[2022-04-05] MEDS: diazePAM 5 MG TABLET PO SCH ×3 (05:54→22:12)
[2022-04-05] MEDS: methaDONE HCL 10 MG TABLET PO SCH (05:54)
[2022-04-05] MEDS: busPIRone HCL 10 MG TABLET (FP) PO SCH ×2 (10:31→22:12)
[2022-04-05] MEDS: PRENATAL VITAMINS W/ FOLIC ACID TABLET (FP) PO SCH (10:32)
[2022-04-05] MEDS: diazePAM 5 MG TABLET PO PRN ×2 (10:32→17:46)
[2022-04-05] MEDS: NICOTINE 14 MG/24 HOURS TOPICAL PATCH TD SCH (10:33)
[2022-04-05] MEDS: ACETAMINOPHEN 325 MG TABLET (FP) PO PRN (13:44)
[2022-04-05] MEDS: hydrOXYzine PAMOATE 25 MG CAPSULE (FP) PO PRN (17:47)
[2022-04-05] MEDS: MAG HYDROX/AL HYDROX/SIMETH 30 ML UNIT-DOSE CUP PO PRN (17:47)
[2022-04-05] MEDS: NICOTINE 10 MG CARTRIDGE (INHALER) IH PRN (17:51)
[2022-04-05] MEDS: MIRTAZAPINE 15 MG TABLET (FP) PO SCH (22:12)
[2022-04-05] MEDS: THIAMINE HCL 100 MG TABLET (FP) PO SCH (22:12)
[2022-04-05] MEDS: MELATONIN 5 MG TABLETS PO SCH (22:12)
[2022-04-06] MEDS: methaDONE HCL 10 MG TABLET PO SCH (05:40)
[2022-04-06] MEDS: diazePAM 5 MG TABLET PO SCH ×2 (05:40→18:00)
[2022-04-06] MEDS: NICOTINE 14 MG/24 HOURS TOPICAL PATCH TD SCH (10:14)
[2022-04-06] MEDS: PRENATAL VITAMINS W/ FOLIC ACID TABLET (FP) PO SCH (10:14)
[2022-04-06] MEDS: busPIRone HCL 10 MG TABLET (FP) PO SCH ×2 (10:15→22:15)
[2022-04-06] MEDS: hydrOXYzine PAMOATE 25 MG CAPSULE (FP) PO PRN (10:17)
[2022-04-06] MEDS: METHOCARBAMOL 500 MG TABLET PO PRN ×2 (10:17→18:01)
[2022-04-06] MEDS: NICOTINE 10 MG CARTRIDGE (INHALER) IH PRN (13:42)
[2022-04-06] MEDS: MIRTAZAPINE 15 MG TABLET (FP) PO SCH (22:15)
[2022-04-06] MEDS: MELATONIN 5 MG TABLETS PO SCH (22:15)
[2022-04-06] MEDS: THIAMINE HCL 100 MG TABLET (FP) PO SCH (22:15)
[2022-04-07] MEDS: methaDONE HCL 10 MG TABLET PO SCH (05:33)
[2022-04-07] MEDS ORDERED: diazePAM 5 MG TABLET PO ONE (06:00)
[2022-04-07 06:39] VITALS: RESP 18
[2022-04-07 09:18] VITALS: BP 130/81; PULSE 92; TEMP 98
[2022-04-07] MEDS: PRENATAL VITAMINS W/ FOLIC ACID TABLET (FP) PO SCH (09:28)
[2022-04-07] MEDS: busPIRone HCL 10 MG TABLET (FP) PO SCH (09:28)
[2022-04-07] MEDS: NICOTINE 14 MG/24 HOURS TOPICAL PATCH TD SCH (09:28)
== END 2022-04-07 12:27 | disposition home or self-care (01) | DRG 773 ==
LOC: YASAS 15:36 → Y3N 19:47
PROVIDERS: ADMIT Allergy & Immunology; ATTEND Allergy & Immunology
PROC: HZ2ZZZZ Detoxification Services for Substance Abuse Treatment (ICD-10-PCS; principal; 2022-04-02)
DX: F11.23 Opioid dependence with withdrawal (principal); F13.232 Sedative, hypnotic or anxiolytic dependence with withdrawal with perceptual disturbance; F14.20 Cocaine dependence, uncomplicated; F12.20 Cannabis dependence, uncomplicated; F17.210 Nicotine dependence, cigarettes, uncomplicated; F19.24 Other psychoactive substance dependence with psychoactive substance-induced mood disorder; F43.10 Post-traumatic stress disorder, unspecified; E66.9 Obesity, unspecified; Z68.39 Body mass index [BMI] 39.0-39.9, adult; Z91.013 Allergy to seafood; Z56.0 Unemployment, unspecified; Z59.00 Homelessness unspecified
CPT/HCPCS: 36415; 80053; 85027; 86780; 87811; 93005; 93010; C9803-CS; U0003; U0005

== ENCOUNTER 2022-06-25 07:04 | Inpatient (IN) | payer BC ==
[2022-06-25 07:49] VITALS: BMI 40.6
[2022-06-25] MEDS ORDERED: NICOTINE POLACRILEX 2 MG GUM BUC PRN (09:40)
[2022-06-25] MEDS ORDERED: IBUPROFEN 600 MG TABLET (FP) PO PRN (09:40)
[2022-06-25] MEDS ORDERED: DICYCLOMINE HCL 10 MG CAPSULE PO PRN (09:40)
[2022-06-25] MEDS ORDERED: METHOCARBAMOL 500 MG TABLET PO PRN (09:40)
[2022-06-25] MEDS ORDERED: MAGNESIUM HYDROX 2400MG/30ML ORAL SUSPENSION 30 ML CUP PO PRN (09:40)
[2022-06-25] MEDS ORDERED: NALOXONE HCL (KLOXXADO) 8 MG SPRAY NS PRN (09:40)
[2022-06-25] MEDS ORDERED: NICOTINE 10 MG CARTRIDGE (INHALER) IH PRN (09:40)
[2022-06-25] MEDS ORDERED: MAG HYDROX/AL HYDROX/SIMETH 30 ML UNIT-DOSE CUP PO PRN (09:40)
[2022-06-25] MEDS ORDERED: LOPERAMIDE HCL 2 MG CAPSULE PO PRN (09:40)
[2022-06-25] MEDS ORDERED: IBUPROFEN 400 MG TABLET (FP) PO PRN (09:40)
[2022-06-25] MEDS ORDERED: ONDANSETRON *ODT* 4 MG TABLET SL PRN (09:40)
[2022-06-25] MEDS ORDERED: BENZOCAINE/MENTHOL (CHLORASEPTIC ) LOZENGE MM PRN (09:40)
[2022-06-25] MEDS ORDERED: ACETAMINOPHEN 325 MG TABLET (FP) PO PRN ×2 (09:40)
[2022-06-25] MEDS ORDERED: MAGNESIUM CITRATE 300 ML BOTTLE PO PRN (09:40)
[2022-06-25] MEDS ORDERED: BISMUTH SUBSALICYLATE 524 MG/30 ML PO PRN (09:40)
[2022-06-25] MEDS ORDERED: PRENATAL VITAMINS W/ FOLIC ACID TABLET (FP) PO SCH (10:15)
[2022-06-25 10:24] VITALS: RESP 18
[2022-06-25] MEDS ORDERED: diazePAM 5 MG TABLET PO SCH (11:00)
[2022-06-25] MEDS ORDERED: FLU VACC QS2022-23(6MOS UP)/PF 60 MCG/0.5 ML SYRINGE IM ONE (12:00)
[2022-06-25] MEDS ORDERED: methaDONE HCL 10 MG TABLET PO ONE (12:29)
[2022-06-25] MEDS ORDERED: P-EPHED 60MG/TRIPROLIDI 2.5MG TABLET PO PRN (12:38)
[2022-06-25] MEDS ORDERED: methaDONE 40 MG, methaDONE 30 MG PO ONE (12:45)
[2022-06-25 13:03] VITALS: BP 142/79; PULSE 68; TEMP 98.2
[2022-06-25 13:30] LABS: HEMATOCRIT 35.3 % (35.4-49); HEMOGLOBIN 12.6 GM/dL (11.7-16.9); MCH 28.7 pg (25.7-33.7); MCHC 35.7 g/dl (32.0-35.9); MEAN CELL VOLUME 80.4 fl (80-96); MEAN PLT VOLUME 8.4 fl (7.5-11.1); PLATELET COUNT 270 10^3/uL (134-434); RBC 4.39 M/mm3 (4.00-5.60); RDW 13.7 % (11.9-15.9); WHITE BLOOD COUNT 9.2 K/mm3 (4.0-10.0)
[2022-06-25 14:05] LABS: CALCIUM 8.6 mg/dL (8.5-10.1)
[2022-06-25 14:06] LABS: ALBUMIN 3.7 g/dl (3.4-5.0)
[2022-06-25 14:09] LABS: CREATININE 0.9 mg/dL (0.55-1.3)
[2022-06-25 14:10] LABS: TOT PROT 7.2 g/dl (6.4-8.2)
[2022-06-25 14:11] LABS: BILIRUBIN,TOTAL 0.5 mg/dL (0.2-1)
[2022-06-25] MEDS ORDERED: THIAMINE HCL 100 MG TABLET (FP) PO SCH (22:00)
[2022-06-25] MEDS ORDERED: MELATONIN 5 MG TABLETS PO SCH (22:00)
[2022-06-26] MEDS ORDERED: methaDONE HCL 10 MG TABLET PO SCH (06:00)
[2022-06-26] MEDS ORDERED: methaDONE 40 MG, methaDONE 30 MG PO SCH (06:00)
[2022-06-26] MEDS ORDERED: FLU VACC QS2022-23(6MOS UP)/PF 60 MCG/0.5 ML SYRINGE IM ONE (10:15)
[2022-06-27] MEDS ORDERED: diazePAM 5 MG TABLET PO SCH (06:00)
[2022-06-28] MEDS ORDERED: diazePAM 5 MG TABLET PO SCH (06:00)
[2022-06-29] MEDS ORDERED: diazePAM 5 MG TABLET PO ONE (06:00)
== END 2022-06-25 15:15 | disposition left against medical advice (07) | DRG 770 ==
LOC: YASAS 07:04 → Y6N 09:52
PROVIDERS: ADMIT Allergy & Immunology; ATTEND Surgery
PROC: HZ2ZZZZ Detoxification Services for Substance Abuse Treatment (ICD-10-PCS; principal; 2022-06-25)
DX: F10.20 Alcohol dependence, uncomplicated (principal); F13.20 Sedative, hypnotic or anxiolytic dependence, uncomplicated; F11.20 Opioid dependence, uncomplicated; F14.20 Cocaine dependence, uncomplicated; F12.20 Cannabis dependence, uncomplicated; F17.210 Nicotine dependence, cigarettes, uncomplicated; F41.9 Anxiety disorder, unspecified; F32.A Depression, unspecified; R56.9 Unspecified convulsions; E66.01 Morbid (severe) obesity due to excess calories; Z68.41 Body mass index [BMI] 40.0-44.9, adult; F91.8 Other conduct disorders; Z91.199 Patient's noncompliance with other medical treatment and regimen due to unspecified reason
CPT/HCPCS: 36415; 80053; 85027; 86780; C9803-CS; Q2036; U0003; U0005

== ENCOUNTER 2022-07-20 19:30 | Inpatient (IN) | payer BC ==
[2022-07-20 20:19] VITALS: BMI 40.6
[2022-07-20] MEDS ORDERED: DICYCLOMINE HCL 10 MG CAPSULE PO PRN (20:44)
[2022-07-20] MEDS ORDERED: P-EPHED 60MG/TRIPROLIDI 2.5MG TABLET PO PRN (20:44)
[2022-07-20] MEDS ORDERED: IBUPROFEN 600 MG TABLET (FP) PO PRN (20:44)
[2022-07-20] MEDS ORDERED: NALOXONE HCL (KLOXXADO) 8 MG SPRAY NS PRN (20:44)
[2022-07-20] MEDS ORDERED: BENZOCAINE/MENTHOL (CHLORASEPTIC ) LOZENGE MM PRN (20:44)
[2022-07-20] MEDS ORDERED: POLYETHYLENE GLYCOL (HEALTHYLAX) 3350 17 GM PACKET PO PRN (20:44)
[2022-07-20] MEDS ORDERED: IBUPROFEN 400 MG TABLET (FP) PO PRN (20:44)
[2022-07-20] MEDS ORDERED: BISMUTH SUBSALICYLATE 524 MG/30 ML PO PRN (20:44)
[2022-07-20] MEDS ORDERED: LOPERAMIDE HCL 2 MG CAPSULE PO PRN (20:44)
[2022-07-20] MEDS ORDERED: ACETAMINOPHEN 325 MG TABLET (FP) PO PRN ×2 (20:44)
[2022-07-20] MEDS ORDERED: MAGNESIUM HYDROX 2400MG/30ML ORAL SUSPENSION 30 ML CUP PO PRN (20:44)
[2022-07-20] MEDS ORDERED: guaiFENesin 200 MG/10 ML 10 ML UNIT-DOSE CUPS PO PRN (20:44)
[2022-07-20] MEDS: ONDANSETRON *ODT* 4 MG TABLET SL PRN (21:38)
[2022-07-20] MEDS: MAG HYDROX/AL HYDROX/SIMETH 30 ML UNIT-DOSE CUP PO PRN (21:39)
[2022-07-20] MEDS: diazePAM 5 MG TABLET PO SCH (22:08)
[2022-07-20] MEDS: MELATONIN 5 MG TABLETS PO SCH (22:09)
[2022-07-20] MEDS: METHOCARBAMOL 500 MG TABLET PO PRN (22:10)
[2022-07-20] MEDS: THIAMINE HCL 100 MG TABLET (FP) PO SCH (23:31)
[2022-07-21] MEDS: hydrOXYzine PAMOATE 25 MG CAPSULE (FP) PO PRN ×2 (01:24→10:09)
[2022-07-21] MEDS: diazePAM 5 MG TABLET PO PRN ×2 (01:25→14:36)
[2022-07-21] MEDS: diazePAM 5 MG TABLET PO SCH ×2 (05:11→10:09)
[2022-07-21] MEDS: PRENATAL VITAMINS W/ FOLIC ACID TABLET (FP) PO SCH (10:08)
[2022-07-21] MEDS: METHOCARBAMOL 500 MG TABLET PO PRN (10:09)
[2022-07-21] MEDS: NICOTINE 14 MG/24 HOURS TOPICAL PATCH TD SCH (10:10)
[2022-07-21 11:20] LABS: CALCIUM 8.5 mg/dL (8.5-10.1)
[2022-07-21 11:21] LABS: ALBUMIN 3.3 g/dl (3.4-5.0); BLOOD UREA NITROGEN 11.5 mg/dL (7-18)
[2022-07-21 11:23] LABS: HEMOGLOBIN 11.9 GM/dL (11.7-16.9); MCH 26.7 pg (25.7-33.7); MEAN CELL VOLUME 80.8 fl (80-96); MEAN PLT VOLUME 7.8 fl (7.5-11.1); PLATELET COUNT 285 10^3/uL (134-434); RBC 4.45 M/mm3 (4.00-5.60); RDW 13.7 % (11.9-15.9); WHITE BLOOD COUNT 11.2 K/mm3 (4.0-10.0)
[2022-07-21 11:24] LABS: CREATININE 0.8 mg/dL (0.55-1.3)
[2022-07-21 11:25] LABS: BILIRUBIN,TOTAL 0.8 mg/dL (0.2-1)
[2022-07-21 11:26] LABS: TOT PROT 6.6 g/dl (6.4-8.2)
[2022-07-21] MEDS ORDERED: methaDONE HCL 40 MG DISPERSABLE TABLET PO ONE (11:45)
[2022-07-21] MEDS: NICOTINE 10 MG CARTRIDGE (INHALER) IH PRN ×3 (11:48→22:24)
[2022-07-21] MEDS: MAG HYDROX/AL HYDROX/SIMETH 30 ML UNIT-DOSE CUP PO PRN (12:24)
[2022-07-21] MEDS: LORazepam 2 MG TABLET PO SCH ×2 (17:08→22:20)
[2022-07-21] MEDS: LORazepam 1 MG TABLET PO PRN (18:56)
[2022-07-21] MEDS: MELATONIN 5 MG TABLETS PO SCH (22:20)
[2022-07-21] MEDS: THIAMINE HCL 100 MG TABLET (FP) PO SCH (22:20)
[2022-07-21] MEDS: MIRTAZAPINE 15 MG TABLET (FP) PO SCH (22:22)
[2022-07-21] MEDS: busPIRone HCL 10 MG TABLET (FP) PO SCH (22:22)
[2022-07-22] MEDS: LORazepam 1 MG TABLET PO PRN ×2 (02:01→14:09)
[2022-07-22] MEDS: methaDONE HCL 40 MG DISPERSABLE TABLET PO SCH (05:30)
[2022-07-22] MEDS: LORazepam 1 MG TABLET PO SCH ×4 (05:30→22:19)
[2022-07-22] MEDS ORDERED: diazePAM 5 MG TABLET PO SCH (06:00)
[2022-07-22] MEDS: NICOTINE 14 MG/24 HOURS TOPICAL PATCH TD SCH (10:15)
[2022-07-22] MEDS: METHOCARBAMOL 500 MG TABLET PO PRN ×2 (10:16→17:23)
[2022-07-22] MEDS: busPIRone HCL 10 MG TABLET (FP) PO SCH ×2 (10:16→22:19)
[2022-07-22] MEDS: PRENATAL VITAMINS W/ FOLIC ACID TABLET (FP) PO SCH (10:17)
[2022-07-22] MEDS: NICOTINE 10 MG CARTRIDGE (INHALER) IH PRN ×2 (10:29→17:25)
[2022-07-22] MEDS: ARTIFICIAL TEARS (POLYVINYL ALCOHOL) OPTH DROPS OU SCH ×2 (14:37→22:18)
[2022-07-22] MEDS: hydrOXYzine PAMOATE 25 MG CAPSULE (FP) PO PRN (17:23)
[2022-07-22] MEDS: MELATONIN 5 MG TABLETS PO SCH (22:17)
[2022-07-22] MEDS: MIRTAZAPINE 15 MG TABLET (FP) PO SCH (22:18)
[2022-07-22] MEDS: THIAMINE HCL 100 MG TABLET (FP) PO SCH (22:18)
[2022-07-23] MEDS: methaDONE HCL 40 MG DISPERSABLE TABLET PO SCH (05:36)
[2022-07-23] MEDS: ARTIFICIAL TEARS (POLYVINYL ALCOHOL) OPTH DROPS OU SCH ×3 (05:38→23:02)
[2022-07-23] MEDS: LORazepam 0.5 MG TABLET PO SCH ×4 (05:38→22:10)
[2022-07-23] MEDS ORDERED: diazePAM 5 MG TABLET PO SCH (06:00)
[2022-07-23] MEDS: PRENATAL VITAMINS W/ FOLIC ACID TABLET (FP) PO SCH (10:38)
[2022-07-23] MEDS: busPIRone HCL 10 MG TABLET (FP) PO SCH ×2 (10:38→22:10)
[2022-07-23] MEDS: NICOTINE 14 MG/24 HOURS TOPICAL PATCH TD SCH (10:39)
[2022-07-23] MEDS: ONDANSETRON *ODT* 4 MG TABLET SL PRN (10:42)
[2022-07-23 11:37] LABS: BASO % 0.8 % (0-2.0); EOS % 9.2 % (0-4.5); HEMOGLOBIN 12.4 GM/dL (11.7-16.9); LYMPH % 29.2 % (8-40); MCH 27.4 pg (25.7-33.7); MCHC 33.4 g/dl (32.0-35.9); MEAN CELL VOLUME 82.2 fl (80-96); MEAN PLT VOLUME 7.6 fl (7.5-11.1); MONO % 10.2 % (3.8-10.2); NEUT % 50.6 % (42.8-82.8); PLATELET COUNT 273 10^3/uL (134-434); RDW 13.8 % (11.9-15.9); WHITE BLOOD COUNT 8.1 K/mm3 (4.0-10.0)
[2022-07-23] MEDS: NICOTINE 10 MG CARTRIDGE (INHALER) IH PRN ×2 (13:33→17:38)
[2022-07-23] MEDS: LORazepam 0.5 MG TABLET PO PRN ×2 (13:33→19:37)
[2022-07-23] MEDS: hydrOXYzine PAMOATE 25 MG CAPSULE (FP) PO PRN (17:37)
[2022-07-23] MEDS: MIRTAZAPINE 15 MG TABLET (FP) PO SCH (22:10)
[2022-07-23] MEDS: THIAMINE HCL 100 MG TABLET (FP) PO SCH (22:10)
[2022-07-23] MEDS: MELATONIN 5 MG TABLETS PO SCH (22:10)
[2022-07-24] MEDS ORDERED: LORazepam 0.5 MG TABLET PO ONE (05:00)
[2022-07-24] MEDS: methaDONE HCL 40 MG DISPERSABLE TABLET PO SCH (05:42)
[2022-07-24] MEDS: ARTIFICIAL TEARS (POLYVINYL ALCOHOL) OPTH DROPS OU SCH (05:43)
[2022-07-24] MEDS ORDERED: diazePAM 5 MG TABLET PO ONE (06:00)
[2022-07-24 08:19] VITALS: PULSE 84; RESP 18
[2022-07-24 09:15] VITALS: BP 112/58; TEMP 97.5
[2022-07-24] MEDS: busPIRone HCL 10 MG TABLET (FP) PO SCH (10:25)
[2022-07-24] MEDS: PRENATAL VITAMINS W/ FOLIC ACID TABLET (FP) PO SCH (10:25)
[2022-07-24] MEDS: NICOTINE 14 MG/24 HOURS TOPICAL PATCH TD SCH (10:26)
== END 2022-07-24 11:55 | disposition home or self-care (01) | DRG 773 ==
LOC: YASAS 19:30 → Y6N 20:53
PROVIDERS: ADMIT Allergy & Immunology; ATTEND Family Medicine Addiction Medicine
PROC: HZ2ZZZZ Detoxification Services for Substance Abuse Treatment (ICD-10-PCS; principal; 2022-07-20)
DX: F13.230 Sedative, hypnotic or anxiolytic dependence with withdrawal, uncomplicated (principal); F11.20 Opioid dependence, uncomplicated; F14.20 Cocaine dependence, uncomplicated; F17.210 Nicotine dependence, cigarettes, uncomplicated; F39 Unspecified mood [affective] disorder; F43.10 Post-traumatic stress disorder, unspecified; F41.9 Anxiety disorder, unspecified; F32.A Depression, unspecified; Z86.69 Personal history of other diseases of the nervous system and sense organs; Z56.0 Unemployment, unspecified; Z59.00 Homelessness unspecified
CPT/HCPCS: 36415; 80053; 83036; 85025; 85027; 86780; C9803-CS; Q0162; U0003; U0005

== ENCOUNTER 2022-07-31 18:12 | Inpatient (IN) | payer BC ==
[2022-07-31 19:43] VITALS: BMI 40.6
[2022-07-31] MEDS ORDERED: LOPERAMIDE HCL 2 MG CAPSULE PO PRN (21:51)
[2022-07-31] MEDS ORDERED: BENZOCAINE/MENTHOL (CHLORASEPTIC ) LOZENGE MM PRN (21:51)
[2022-07-31] MEDS ORDERED: POLYETHYLENE GLYCOL (HEALTHYLAX) 3350 17 GM PACKET PO PRN (21:51)
[2022-07-31] MEDS ORDERED: guaiFENesin 200 MG/10 ML 10 ML UNIT-DOSE CUPS PO PRN (21:51)
[2022-07-31] MEDS ORDERED: P-EPHED 60MG/TRIPROLIDI 2.5MG TABLET PO PRN (21:51)
[2022-07-31] MEDS ORDERED: ACETAMINOPHEN 325 MG TABLET (FP) PO PRN (21:51)
[2022-07-31] MEDS ORDERED: NICOTINE POLACRILEX 2 MG GUM BC PRN (21:51)
[2022-07-31] MEDS ORDERED: busPIRone HCL 5 MG TABLET PO ONE (22:00)
[2022-08-01] MEDS ORDERED: cloNIDine HCL 0.1 MG TABLET PO ONE (00:24)
[2022-08-01] MEDS: CEPHALEXIN MONOHYDRATE 500 MG CAPSULE (UD) PO SCH ×3 (02:58→21:51)
[2022-08-01] MEDS: THIAMINE HCL 100 MG TABLET (FP) PO SCH ×2 (02:59→21:52)
[2022-08-01] MEDS: hydrOXYzine PAMOATE 25 MG CAPSULE (FP) PO PRN ×2 (03:30→21:53)
[2022-08-01] MEDS: PRENATAL VITAMINS W/ FOLIC ACID TABLET (FP) PO SCH (10:23)
[2022-08-01] MEDS: methaDONE HCL 40 MG DISPERSABLE TABLET PO SCH (10:23)
[2022-08-01] MEDS ORDERED: SERTRALINE HCL 50 MG TABLET (FP) PO ONE (10:46)
[2022-08-01] MEDS ORDERED: busPIRone HCL 10 MG TABLET (FP) PO ONE (10:47)
[2022-08-01] MEDS: NICOTINE 10 MG CARTRIDGE (INHALER) IH SCH (13:00)
[2022-08-01] MEDS: MELATONIN 5 MG TABLETS PO PRN (21:52)
[2022-08-01] MEDS: busPIRone HCL 10 MG TABLET (FP) PO SCH (21:53)
[2022-08-02] MEDS: methaDONE HCL 40 MG DISPERSABLE TABLET PO SCH (06:25)
[2022-08-02] MEDS: CEPHALEXIN MONOHYDRATE 500 MG CAPSULE (UD) PO SCH ×2 (10:08→21:36)
[2022-08-02] MEDS: busPIRone HCL 10 MG TABLET (FP) PO SCH ×2 (10:08→21:36)
[2022-08-02] MEDS: SERTRALINE HCL 50 MG TABLET (FP) PO SCH (10:08)
[2022-08-02] MEDS: PRENATAL VITAMINS W/ FOLIC ACID TABLET (FP) PO SCH (10:08)
[2022-08-02] MEDS: NICOTINE 10 MG CARTRIDGE (INHALER) IH SCH (10:08)
[2022-08-02] MEDS: NICOTINE 14 MG/24 HOURS TOPICAL PATCH TD PRN (10:09)
[2022-08-02] MEDS: NICOTINE 10 MG CARTRIDGE (INHALER) IH PRN (18:46)
[2022-08-02] MEDS: THIAMINE HCL 100 MG TABLET (FP) PO SCH (21:36)
[2022-08-02] MEDS: MELATONIN 5 MG TABLETS PO PRN (21:37)
[2022-08-02] MEDS: hydrOXYzine PAMOATE 25 MG CAPSULE (FP) PO PRN (21:37)
[2022-08-03] MEDS: methaDONE HCL 40 MG DISPERSABLE TABLET PO SCH (06:30)
[2022-08-03] MEDS: PRENATAL VITAMINS W/ FOLIC ACID TABLET (FP) PO SCH (10:45)
[2022-08-03] MEDS: SERTRALINE HCL 50 MG TABLET (FP) PO SCH (10:46)
[2022-08-03] MEDS: busPIRone HCL 10 MG TABLET (FP) PO SCH ×2 (10:46→21:23)
[2022-08-03] MEDS: CEPHALEXIN MONOHYDRATE 500 MG CAPSULE (UD) PO SCH (10:46)
[2022-08-03] MEDS: NICOTINE 14 MG/24 HOURS TOPICAL PATCH TD PRN (10:47)
[2022-08-03] MEDS: NICOTINE 10 MG CARTRIDGE (INHALER) IH SCH (10:48)
[2022-08-03] MEDS: hydrOXYzine PAMOATE 25 MG CAPSULE (FP) PO PRN (21:23)
[2022-08-03] MEDS: THIAMINE HCL 100 MG TABLET (FP) PO SCH (21:23)
[2022-08-03] MEDS: ARTIFICIAL TEARS (POLYVINYL ALCOHOL) OPTH DROPS OU PRN (23:07)
[2022-08-04] MEDS: methaDONE HCL 40 MG DISPERSABLE TABLET PO SCH (06:50)
[2022-08-04 07:46] LABS: PH,URINE 7.5 (5.0-8.0); URINE APPEARANCE CLEAR; URINE BILIRUBIN NEGATIVE (NEGATIVE); URINE COLOR YELLOW; URINE GLUCOSE (UA) NEGATIVE (NEGATIVE); URINE KETONE NEGATIVE (NEGATIVE); URINE LEUK ESTERASE NEGATIVE (NEGATIVE); URINE NITRITE NEGATIVE (NEGATIVE); URINE PROTEIN NEGATIVE (NEGATIVE); URINE UROBILINOGEN 0.2 mg/dL (0.2-1.0)
[2022-08-04] MEDS: PRENATAL VITAMINS W/ FOLIC ACID TABLET (FP) PO SCH (10:36)
[2022-08-04] MEDS: NICOTINE 10 MG CARTRIDGE (INHALER) IH SCH (10:37)
[2022-08-04] MEDS: busPIRone HCL 10 MG TABLET (FP) PO SCH ×2 (10:37→21:51)
[2022-08-04] MEDS: SERTRALINE HCL 50 MG TABLET (FP) PO SCH (10:37)
[2022-08-04] MEDS: NICOTINE 14 MG/24 HOURS TOPICAL PATCH TD PRN (10:38)
[2022-08-04] MEDS: MAG HYDROX/AL HYDROX/SIMETH 30 ML UNIT-DOSE CUP PO PRN (10:39)
[2022-08-04] MEDS: MELATONIN 5 MG TABLETS PO PRN (21:51)
[2022-08-04] MEDS: THIAMINE HCL 100 MG TABLET (FP) PO SCH (21:51)
[2022-08-04] MEDS: ARTIFICIAL TEARS (POLYVINYL ALCOHOL) OPTH DROPS OU PRN (21:53)
[2022-08-05] MEDS: methaDONE HCL 40 MG DISPERSABLE TABLET PO SCH (06:49)
[2022-08-05] MEDS: SERTRALINE HCL 50 MG TABLET (FP) PO SCH (09:38)
[2022-08-05] MEDS: PRENATAL VITAMINS W/ FOLIC ACID TABLET (FP) PO SCH (09:38)
[2022-08-05] MEDS: busPIRone HCL 10 MG TABLET (FP) PO SCH ×2 (09:38→21:12)
[2022-08-05] MEDS: NICOTINE 10 MG CARTRIDGE (INHALER) IH SCH (09:38)
[2022-08-05] MEDS: NICOTINE 14 MG/24 HOURS TOPICAL PATCH TD PRN (09:40)
[2022-08-05] MEDS: THIAMINE HCL 100 MG TABLET (FP) PO SCH (21:11)
[2022-08-05] MEDS: MELATONIN 5 MG TABLETS PO PRN (21:11)
[2022-08-05] MEDS: hydrOXYzine PAMOATE 25 MG CAPSULE (FP) PO PRN (21:12)
[2022-08-06] MEDS: methaDONE HCL 40 MG DISPERSABLE TABLET PO SCH (07:01)
[2022-08-06] MEDS: SERTRALINE HCL 50 MG TABLET (FP) PO SCH (10:13)
[2022-08-06] MEDS: busPIRone HCL 10 MG TABLET (FP) PO SCH ×2 (10:13→21:25)
[2022-08-06] MEDS: PRENATAL VITAMINS W/ FOLIC ACID TABLET (FP) PO SCH (10:13)
[2022-08-06] MEDS: NICOTINE 10 MG CARTRIDGE (INHALER) IH SCH (10:14)
[2022-08-06] MEDS: NICOTINE 14 MG/24 HOURS TOPICAL PATCH TD PRN (10:15)
[2022-08-06] MEDS: hydrOXYzine PAMOATE 25 MG CAPSULE (FP) PO PRN (21:25)
[2022-08-06] MEDS: THIAMINE HCL 100 MG TABLET (FP) PO SCH (21:25)
[2022-08-06] MEDS: ARTIFICIAL TEARS (POLYVINYL ALCOHOL) OPTH DROPS OU PRN (22:39)
[2022-08-07] MEDS: methaDONE HCL 40 MG DISPERSABLE TABLET PO SCH (07:03)
[2022-08-07] MEDS: NICOTINE 10 MG CARTRIDGE (INHALER) IH SCH (09:42)
[2022-08-07] MEDS: busPIRone HCL 10 MG TABLET (FP) PO SCH ×2 (09:42→21:37)
[2022-08-07] MEDS: SERTRALINE HCL 50 MG TABLET (FP) PO SCH (09:42)
[2022-08-07] MEDS: PRENATAL VITAMINS W/ FOLIC ACID TABLET (FP) PO SCH (09:43)
[2022-08-07] MEDS: NICOTINE 10 MG CARTRIDGE (INHALER) IH PRN ×2 (09:43→21:49)
[2022-08-07] MEDS: NICOTINE 14 MG/24 HOURS TOPICAL PATCH TD PRN (09:44)
[2022-08-07] MEDS ORDERED: FLU VACC QS2022-23(6MOS UP)/PF 60 MCG/0.5 ML SYRINGE IM ONE ×2 (11:15→14:00)
[2022-08-07] MEDS: THIAMINE HCL 100 MG TABLET (FP) PO SCH (21:38)
[2022-08-07] MEDS: BACITRACIN 0.9 GM PACKET TP SCH (21:38)
[2022-08-07] MEDS: MELATONIN 5 MG TABLETS PO PRN (21:38)
[2022-08-07] MEDS: hydrOXYzine PAMOATE 25 MG CAPSULE (FP) PO PRN (21:38)
[2022-08-08] MEDS: methaDONE 80 MG, methaDONE 10 MG PO SCH (06:08)
[2022-08-08] MEDS ORDERED: methaDONE HCL 40 MG DISPERSABLE TABLET PO SCH (07:00)
[2022-08-08] MEDS: IBUPROFEN 400 MG TABLET (FP) PO PRN (09:26)
[2022-08-08] MEDS: PRENATAL VITAMINS W/ FOLIC ACID TABLET (FP) PO SCH (09:27)
[2022-08-08] MEDS: NICOTINE 14 MG/24 HOURS TOPICAL PATCH TD PRN (09:27)
[2022-08-08] MEDS: SERTRALINE HCL 50 MG TABLET (FP) PO SCH (09:27)
[2022-08-08] MEDS: BACITRACIN 0.9 GM PACKET TP SCH ×2 (09:27→21:14)
[2022-08-08] MEDS: NICOTINE 10 MG CARTRIDGE (INHALER) IH SCH (09:27)
[2022-08-08] MEDS: busPIRone HCL 10 MG TABLET (FP) PO SCH ×2 (09:27→21:14)
[2022-08-08] MEDS: MELATONIN 5 MG TABLETS PO PRN (21:14)
[2022-08-08] MEDS: THIAMINE HCL 100 MG TABLET (FP) PO SCH (21:14)
[2022-08-08] MEDS: MIRTAZAPINE 15 MG TABLET (FP) PO SCH (21:15)
[2022-08-08] MEDS: NICOTINE 10 MG CARTRIDGE (INHALER) IH PRN (21:17)
[2022-08-09] MEDS: methaDONE 80 MG, methaDONE 10 MG PO SCH (06:03)
[2022-08-09] MEDS: PRENATAL VITAMINS W/ FOLIC ACID TABLET (FP) PO SCH (09:35)
[2022-08-09] MEDS: busPIRone HCL 10 MG TABLET (FP) PO SCH ×2 (09:35→21:13)
[2022-08-09] MEDS: DOCUSATE SODIUM 100 MG CAPSULE (FP) PO PRN (09:35)
[2022-08-09] MEDS: BACITRACIN 0.9 GM PACKET TP SCH ×2 (09:35→21:14)
[2022-08-09] MEDS: SERTRALINE HCL 50 MG TABLET (FP) PO SCH (09:35)
[2022-08-09] MEDS: MAG HYDROX/AL HYDROX/SIMETH 30 ML UNIT-DOSE CUP PO PRN ×2 (09:36→17:27)
[2022-08-09] MEDS: NICOTINE 10 MG CARTRIDGE (INHALER) IH SCH (09:36)
[2022-08-09] MEDS: NICOTINE 14 MG/24 HOURS TOPICAL PATCH TD PRN (09:41)
[2022-08-09] MEDS: NICOTINE 10 MG CARTRIDGE (INHALER) IH PRN (17:27)
[2022-08-09] MEDS: MIRTAZAPINE 15 MG TABLET (FP) PO SCH (21:12)
[2022-08-09] MEDS: MELATONIN 5 MG TABLETS PO PRN (21:13)
[2022-08-09] MEDS: THIAMINE HCL 100 MG TABLET (FP) PO SCH (21:13)
[2022-08-10] MEDS: IBUPROFEN 400 MG TABLET (FP) PO PRN (06:12)
[2022-08-10] MEDS: methaDONE 80 MG, methaDONE 10 MG PO SCH (06:13)
[2022-08-10] MEDS: PRENATAL VITAMINS W/ FOLIC ACID TABLET (FP) PO SCH (10:24)
[2022-08-10] MEDS: NICOTINE 10 MG CARTRIDGE (INHALER) IH SCH (10:24)
[2022-08-10] MEDS: BACITRACIN 0.9 GM PACKET TP SCH ×2 (10:24→21:21)
[2022-08-10] MEDS: busPIRone HCL 10 MG TABLET (FP) PO SCH ×2 (10:25→21:21)
[2022-08-10] MEDS: NICOTINE 14 MG/24 HOURS TOPICAL PATCH TD PRN (10:25)
[2022-08-10] MEDS: SERTRALINE HCL 50 MG TABLET (FP) PO SCH (10:25)
[2022-08-10] MEDS: MAG HYDROX/AL HYDROX/SIMETH 30 ML UNIT-DOSE CUP PO PRN (10:26)
[2022-08-10] MEDS: DOCUSATE SODIUM 100 MG CAPSULE (FP) PO PRN (10:28)
[2022-08-10] MEDS: hydrOXYzine PAMOATE 25 MG CAPSULE (FP) PO PRN (10:28)
[2022-08-10] MEDS: MIRTAZAPINE 15 MG TABLET (FP) PO SCH (21:21)
[2022-08-10] MEDS: THIAMINE HCL 100 MG TABLET (FP) PO SCH (21:21)
[2022-08-10] MEDS: MELATONIN 5 MG TABLETS PO PRN (21:22)
[2022-08-10] MEDS: NICOTINE 10 MG CARTRIDGE (INHALER) IH PRN (21:28)
[2022-08-11] MEDS: methaDONE 80 MG, methaDONE 10 MG PO SCH (06:12)
[2022-08-11] MEDS: MAG HYDROX/AL HYDROX/SIMETH 30 ML UNIT-DOSE CUP PO PRN (08:14)
[2022-08-11] MEDS: PRENATAL VITAMINS W/ FOLIC ACID TABLET (FP) PO SCH (09:51)
[2022-08-11] MEDS: BACITRACIN 0.9 GM PACKET TP SCH ×2 (09:51→21:23)
[2022-08-11] MEDS: SERTRALINE HCL 50 MG TABLET (FP) PO SCH (09:51)
[2022-08-11] MEDS: busPIRone HCL 10 MG TABLET (FP) PO SCH ×2 (09:51→21:23)
[2022-08-11] MEDS: NICOTINE 10 MG CARTRIDGE (INHALER) IH SCH (09:51)
[2022-08-11] MEDS: NICOTINE 14 MG/24 HOURS TOPICAL PATCH TD PRN (09:52)
[2022-08-11] MEDS: hydrOXYzine PAMOATE 25 MG CAPSULE (FP) PO PRN ×2 (09:52→21:24)
[2022-08-11] MEDS: IBUPROFEN 400 MG TABLET (FP) PO PRN ×2 (12:25→19:48)
[2022-08-11] MEDS: NICOTINE 10 MG CARTRIDGE (INHALER) IH PRN (19:48)
[2022-08-11] MEDS: MELATONIN 5 MG TABLETS PO PRN (21:22)
[2022-08-11] MEDS: MIRTAZAPINE 15 MG TABLET (FP) PO SCH (21:23)
[2022-08-11] MEDS: ARTIFICIAL TEARS (POLYVINYL ALCOHOL) OPTH DROPS OU PRN (21:23)
[2022-08-11] MEDS: THIAMINE HCL 100 MG TABLET (FP) PO SCH (21:25)
[2022-08-12] MEDS: methaDONE 80 MG, methaDONE 10 MG PO SCH (06:19)
[2022-08-12] MEDS: MAG HYDROX/AL HYDROX/SIMETH 30 ML UNIT-DOSE CUP PO PRN ×2 (06:20→12:57)
[2022-08-12] MEDS: NICOTINE 10 MG CARTRIDGE (INHALER) IH SCH (09:56)
[2022-08-12] MEDS: PRENATAL VITAMINS W/ FOLIC ACID TABLET (FP) PO SCH (09:56)
[2022-08-12] MEDS: SERTRALINE HCL 50 MG TABLET (FP) PO SCH (09:56)
[2022-08-12] MEDS: busPIRone HCL 10 MG TABLET (FP) PO SCH ×2 (09:56→21:29)
[2022-08-12] MEDS: BACITRACIN 0.9 GM PACKET TP SCH ×2 (09:56→21:30)
[2022-08-12] MEDS: NICOTINE 14 MG/24 HOURS TOPICAL PATCH TD PRN (09:56)
[2022-08-12] MEDS: hydrOXYzine PAMOATE 25 MG CAPSULE (FP) PO PRN ×2 (09:58→21:30)
[2022-08-12] MEDS: DOCUSATE SODIUM 100 MG CAPSULE (FP) PO PRN (09:58)
[2022-08-12] MEDS: NICOTINE 10 MG CARTRIDGE (INHALER) IH PRN ×2 (10:00→21:31)
[2022-08-12] MEDS: MIRTAZAPINE 15 MG TABLET (FP) PO SCH (21:29)
[2022-08-12] MEDS: THIAMINE HCL 100 MG TABLET (FP) PO SCH (21:29)
[2022-08-12] MEDS: MELATONIN 5 MG TABLETS PO PRN (21:29)
[2022-08-12] MEDS: ARTIFICIAL TEARS (POLYVINYL ALCOHOL) OPTH DROPS OU PRN (21:32)
[2022-08-13] MEDS: methaDONE 80 MG, methaDONE 10 MG PO SCH (06:11)
[2022-08-13] MEDS: MAG HYDROX/AL HYDROX/SIMETH 30 ML UNIT-DOSE CUP PO PRN ×2 (07:50→21:12)
[2022-08-13] MEDS: busPIRone HCL 10 MG TABLET (FP) PO SCH ×2 (09:13→21:10)
[2022-08-13] MEDS: SERTRALINE HCL 50 MG TABLET (FP) PO SCH (09:13)
[2022-08-13] MEDS: NICOTINE 10 MG CARTRIDGE (INHALER) IH SCH (09:14)
[2022-08-13] MEDS: PRENATAL VITAMINS W/ FOLIC ACID TABLET (FP) PO SCH (09:14)
[2022-08-13] MEDS: BACITRACIN 0.9 GM PACKET TP SCH ×2 (09:14→21:11)
[2022-08-13] MEDS: hydrOXYzine PAMOATE 25 MG CAPSULE (FP) PO PRN ×2 (09:15→21:11)
[2022-08-13] MEDS: NICOTINE 14 MG/24 HOURS TOPICAL PATCH TD PRN (09:36)
[2022-08-13] MEDS: THIAMINE HCL 100 MG TABLET (FP) PO SCH (21:11)
[2022-08-13] MEDS: MELATONIN 5 MG TABLETS PO PRN (21:11)
[2022-08-13] MEDS: MIRTAZAPINE 15 MG TABLET (FP) PO SCH (21:11)
[2022-08-13] MEDS: NICOTINE 10 MG CARTRIDGE (INHALER) IH PRN (21:12)
[2022-08-14] MEDS: methaDONE 80 MG, methaDONE 10 MG PO SCH (06:07)
[2022-08-14] MEDS: MAG HYDROX/AL HYDROX/SIMETH 30 ML UNIT-DOSE CUP PO PRN ×3 (06:08→18:08)
[2022-08-14] MEDS: busPIRone HCL 10 MG TABLET (FP) PO SCH ×2 (09:59→21:23)
[2022-08-14] MEDS: BACITRACIN 0.9 GM PACKET TP SCH ×2 (09:59→21:23)
[2022-08-14] MEDS: NICOTINE 10 MG CARTRIDGE (INHALER) IH SCH (10:00)
[2022-08-14] MEDS: SERTRALINE HCL 50 MG TABLET (FP) PO SCH (10:00)
[2022-08-14] MEDS: DOCUSATE SODIUM 100 MG CAPSULE (FP) PO PRN (10:00)
[2022-08-14] MEDS: hydrOXYzine PAMOATE 25 MG CAPSULE (FP) PO PRN ×2 (10:00→21:23)
[2022-08-14] MEDS: NICOTINE 14 MG/24 HOURS TOPICAL PATCH TD PRN (10:00)
[2022-08-14] MEDS: PRENATAL VITAMINS W/ FOLIC ACID TABLET (FP) PO SCH (10:00)
[2022-08-14] MEDS: MIRTAZAPINE 15 MG TABLET (FP) PO SCH (21:23)
[2022-08-14] MEDS: MELATONIN 5 MG TABLETS PO PRN (21:24)
[2022-08-14] MEDS: THIAMINE HCL 100 MG TABLET (FP) PO SCH (21:24)
[2022-08-14] MEDS: NICOTINE 10 MG CARTRIDGE (INHALER) IH PRN (21:25)
[2022-08-15] MEDS: methaDONE 80 MG, methaDONE 10 MG PO SCH (06:12)
[2022-08-15] MEDS: BACITRACIN 0.9 GM PACKET TP SCH ×2 (09:15→21:09)
[2022-08-15] MEDS: NICOTINE 10 MG CARTRIDGE (INHALER) IH SCH (09:15)
[2022-08-15] MEDS: hydrOXYzine PAMOATE 25 MG CAPSULE (FP) PO PRN ×2 (09:15→21:10)
[2022-08-15] MEDS: PRENATAL VITAMINS W/ FOLIC ACID TABLET (FP) PO SCH (09:15)
[2022-08-15] MEDS: busPIRone HCL 10 MG TABLET (FP) PO SCH ×2 (09:15→21:09)
[2022-08-15] MEDS: SERTRALINE HCL 50 MG TABLET (FP) PO SCH (09:15)
[2022-08-15] MEDS: MAG HYDROX/AL HYDROX/SIMETH 30 ML UNIT-DOSE CUP PO PRN ×2 (09:16→21:11)
[2022-08-15] MEDS: NICOTINE 14 MG/24 HOURS TOPICAL PATCH TD PRN (12:38)
[2022-08-15] MEDS: MELATONIN 5 MG TABLETS PO PRN (21:09)
[2022-08-15] MEDS: THIAMINE HCL 100 MG TABLET (FP) PO SCH (21:09)
[2022-08-15] MEDS: MIRTAZAPINE 15 MG TABLET (FP) PO SCH (21:10)
[2022-08-16] MEDS: methaDONE 80 MG, methaDONE 10 MG PO SCH (06:48)
[2022-08-16] MEDS: PRENATAL VITAMINS W/ FOLIC ACID TABLET (FP) PO SCH (09:20)
[2022-08-16] MEDS: NICOTINE 10 MG CARTRIDGE (INHALER) IH SCH (09:20)
[2022-08-16] MEDS: busPIRone HCL 10 MG TABLET (FP) PO SCH ×2 (09:20→21:09)
[2022-08-16] MEDS: hydrOXYzine PAMOATE 25 MG CAPSULE (FP) PO PRN ×2 (09:20→21:10)
[2022-08-16] MEDS: NICOTINE 14 MG/24 HOURS TOPICAL PATCH TD PRN (09:20)
[2022-08-16] MEDS: SERTRALINE HCL 50 MG TABLET (FP) PO SCH (09:20)
[2022-08-16] MEDS: BACITRACIN 0.9 GM PACKET TP SCH ×2 (09:20→21:09)
[2022-08-16] MEDS: MAG HYDROX/AL HYDROX/SIMETH 30 ML UNIT-DOSE CUP PO PRN (09:54)
[2022-08-16] MEDS: NICOTINE 10 MG CARTRIDGE (INHALER) IH PRN ×2 (14:29→21:10)
[2022-08-16] MEDS ORDERED: PANTOPRAZOLE 20 MG TABLET PO SCH (14:45)
[2022-08-16] MEDS: ARTIFICIAL TEARS (POLYVINYL ALCOHOL) OPTH DROPS OU PRN (15:30)
[2022-08-16] MEDS: MELATONIN 5 MG TABLETS PO PRN (21:09)
[2022-08-16] MEDS: THIAMINE HCL 100 MG TABLET (FP) PO SCH (21:09)
[2022-08-16] MEDS: MIRTAZAPINE 15 MG TABLET (FP) PO SCH (21:37)
[2022-08-17] MEDS: methaDONE 80 MG, methaDONE 10 MG PO SCH (06:04)
[2022-08-17] MEDS: hydrOXYzine PAMOATE 25 MG CAPSULE (FP) PO PRN ×2 (09:31→21:33)
[2022-08-17] MEDS: NICOTINE 14 MG/24 HOURS TOPICAL PATCH TD PRN (09:31)
[2022-08-17] MEDS: PRENATAL VITAMINS W/ FOLIC ACID TABLET (FP) PO SCH (09:32)
[2022-08-17] MEDS: PANTOPRAZOLE 20 MG TABLET PO SCH (09:32)
[2022-08-17] MEDS: BACITRACIN 0.9 GM PACKET TP SCH ×2 (09:32→21:33)
[2022-08-17] MEDS: SERTRALINE HCL 50 MG TABLET (FP) PO SCH (09:32)
[2022-08-17] MEDS: busPIRone HCL 10 MG TABLET (FP) PO SCH ×2 (09:32→21:34)
[2022-08-17] MEDS: NICOTINE 10 MG CARTRIDGE (INHALER) IH SCH (09:32)
[2022-08-17] MEDS: NICOTINE 10 MG CARTRIDGE (INHALER) IH PRN (21:32)
[2022-08-17] MEDS: ARTIFICIAL TEARS (POLYVINYL ALCOHOL) OPTH DROPS OU PRN (21:33)
[2022-08-17] MEDS: MIRTAZAPINE 15 MG TABLET (FP) PO SCH (21:34)
[2022-08-17] MEDS: THIAMINE HCL 100 MG TABLET (FP) PO SCH (21:35)
[2022-08-17] MEDS: MELATONIN 5 MG TABLETS PO PRN (21:35)
[2022-08-18] MEDS: methaDONE 80 MG, methaDONE 10 MG PO SCH (06:07)
[2022-08-18] MEDS: BACITRACIN 0.9 GM PACKET TP SCH ×2 (09:23→21:35)
[2022-08-18] MEDS: hydrOXYzine PAMOATE 25 MG CAPSULE (FP) PO PRN ×2 (09:23→21:35)
[2022-08-18] MEDS: SERTRALINE HCL 50 MG TABLET (FP) PO SCH (09:24)
[2022-08-18] MEDS: PANTOPRAZOLE 20 MG TABLET PO SCH (09:24)
[2022-08-18] MEDS: NICOTINE 10 MG CARTRIDGE (INHALER) IH SCH (09:24)
[2022-08-18] MEDS: busPIRone HCL 10 MG TABLET (FP) PO SCH ×2 (09:24→21:35)
[2022-08-18] MEDS: PRENATAL VITAMINS W/ FOLIC ACID TABLET (FP) PO SCH (09:24)
[2022-08-18] MEDS: NICOTINE 14 MG/24 HOURS TOPICAL PATCH TD PRN (09:26)
[2022-08-18] MEDS: ARTIFICIAL TEARS (POLYVINYL ALCOHOL) OPTH DROPS OU PRN (09:27)
[2022-08-18] MEDS: MIRTAZAPINE 15 MG TABLET (FP) PO SCH (21:35)
[2022-08-18] MEDS: THIAMINE HCL 100 MG TABLET (FP) PO SCH (21:35)
[2022-08-18] MEDS: MELATONIN 5 MG TABLETS PO PRN (21:37)
[2022-08-19] MEDS: methaDONE 80 MG, methaDONE 10 MG PO SCH (06:02)
[2022-08-19] MEDS: PRENATAL VITAMINS W/ FOLIC ACID TABLET (FP) PO SCH (10:14)
[2022-08-19] MEDS: BACITRACIN 0.9 GM PACKET TP SCH ×2 (10:14→21:35)
[2022-08-19] MEDS: SERTRALINE HCL 50 MG TABLET (FP) PO SCH (10:14)
[2022-08-19] MEDS: PANTOPRAZOLE 20 MG TABLET PO SCH (10:14)
[2022-08-19] MEDS: NICOTINE 10 MG CARTRIDGE (INHALER) IH SCH (10:14)
[2022-08-19] MEDS: busPIRone HCL 10 MG TABLET (FP) PO SCH ×2 (10:14→21:34)
[2022-08-19] MEDS: NICOTINE 14 MG/24 HOURS TOPICAL PATCH TD PRN (10:15)
[2022-08-19] MEDS: hydrOXYzine PAMOATE 25 MG CAPSULE (FP) PO PRN ×2 (10:15→21:34)
[2022-08-19] MEDS: DOCUSATE SODIUM 100 MG CAPSULE (FP) PO PRN ×2 (13:02→21:35)
[2022-08-19] MEDS: MIRTAZAPINE 15 MG TABLET (FP) PO SCH (21:34)
[2022-08-19] MEDS: MELATONIN 5 MG TABLETS PO PRN (21:34)
[2022-08-19] MEDS: THIAMINE HCL 100 MG TABLET (FP) PO SCH (21:35)
[2022-08-20] MEDS: methaDONE 80 MG, methaDONE 10 MG PO SCH (06:16)
[2022-08-20] MEDS: NICOTINE 10 MG CARTRIDGE (INHALER) IH PRN (10:33)
[2022-08-20] MEDS: PANTOPRAZOLE 20 MG TABLET PO SCH (10:35)
[2022-08-20] MEDS: PRENATAL VITAMINS W/ FOLIC ACID TABLET (FP) PO SCH (10:35)
[2022-08-20] MEDS: NICOTINE 10 MG CARTRIDGE (INHALER) IH SCH (10:35)
[2022-08-20] MEDS: NICOTINE 14 MG/24 HOURS TOPICAL PATCH TD PRN (10:35)
[2022-08-20] MEDS: SERTRALINE HCL 50 MG TABLET (FP) PO SCH (10:35)
[2022-08-20] MEDS: busPIRone HCL 10 MG TABLET (FP) PO SCH ×2 (11:32→21:26)
[2022-08-20] MEDS: BACITRACIN 0.9 GM PACKET TP SCH ×2 (11:32→21:26)
[2022-08-20] MEDS: ARTIFICIAL TEARS (POLYVINYL ALCOHOL) OPTH DROPS OU PRN ×2 (14:07→21:28)
[2022-08-20] MEDS: THIAMINE HCL 100 MG TABLET (FP) PO SCH (21:26)
[2022-08-20] MEDS: MELATONIN 5 MG TABLETS PO PRN (21:26)
[2022-08-20] MEDS: MIRTAZAPINE 15 MG TABLET (FP) PO SCH (21:27)
[2022-08-20] MEDS: DOCUSATE SODIUM 100 MG CAPSULE (FP) PO PRN (21:27)
[2022-08-20] MEDS: hydrOXYzine PAMOATE 25 MG CAPSULE (FP) PO PRN (21:27)
[2022-08-21] MEDS: methaDONE 80 MG, methaDONE 10 MG PO SCH (06:16)
[2022-08-21] MEDS: PANTOPRAZOLE 20 MG TABLET PO SCH (10:09)
[2022-08-21] MEDS: BACITRACIN 0.9 GM PACKET TP SCH ×2 (10:09→21:03)
[2022-08-21] MEDS: SERTRALINE HCL 50 MG TABLET (FP) PO SCH (10:09)
[2022-08-21] MEDS: PRENATAL VITAMINS W/ FOLIC ACID TABLET (FP) PO SCH (10:09)
[2022-08-21] MEDS: busPIRone HCL 10 MG TABLET (FP) PO SCH ×2 (10:09→21:03)
[2022-08-21] MEDS: DOCUSATE SODIUM 100 MG CAPSULE (FP) PO PRN ×2 (10:09→21:03)
[2022-08-21] MEDS: NICOTINE 14 MG/24 HOURS TOPICAL PATCH TD PRN (10:10)
[2022-08-21] MEDS: NICOTINE 10 MG CARTRIDGE (INHALER) IH PRN (10:10)
[2022-08-21] MEDS: ARTIFICIAL TEARS (POLYVINYL ALCOHOL) OPTH DROPS OU PRN (15:38)
[2022-08-21] MEDS: THIAMINE HCL 100 MG TABLET (FP) PO SCH (21:02)
[2022-08-21] MEDS: MELATONIN 5 MG TABLETS PO PRN (21:03)
[2022-08-21] MEDS: MIRTAZAPINE 15 MG TABLET (FP) PO SCH (21:03)
[2022-08-21] MEDS: hydrOXYzine PAMOATE 25 MG CAPSULE (FP) PO PRN (21:03)
[2022-08-22] MEDS ORDERED: methaDONE HCL 10 MG TABLET PO SCH (06:30)
[2022-08-22] MEDS: methaDONE 80 MG, methaDONE 10 MG PO SCH (06:44)
[2022-08-22] MEDS: busPIRone HCL 10 MG TABLET (FP) PO SCH ×2 (10:04→21:16)
[2022-08-22] MEDS: DOCUSATE SODIUM 100 MG CAPSULE (FP) PO PRN ×2 (10:04→21:16)
[2022-08-22] MEDS: hydrOXYzine PAMOATE 25 MG CAPSULE (FP) PO PRN ×2 (10:04→21:16)
[2022-08-22] MEDS: PANTOPRAZOLE 20 MG TABLET PO SCH (10:04)
[2022-08-22] MEDS: SERTRALINE HCL 50 MG TABLET (FP) PO SCH (10:04)
[2022-08-22] MEDS: NICOTINE 14 MG/24 HOURS TOPICAL PATCH TD PRN (10:04)
[2022-08-22] MEDS: BACITRACIN 0.9 GM PACKET TP SCH ×2 (10:04→21:17)
[2022-08-22] MEDS: PRENATAL VITAMINS W/ FOLIC ACID TABLET (FP) PO SCH (10:05)
[2022-08-22] MEDS: NICOTINE 10 MG CARTRIDGE (INHALER) IH PRN ×2 (10:05→21:17)
[2022-08-22] MEDS ORDERED: COVID-19 VAC, BIVALENT (PFIZER)/PF 30 MCG/0.3 ML VIAL IM ONE (16:00)
[2022-08-22] MEDS: ARTIFICIAL TEARS (POLYVINYL ALCOHOL) OPTH DROPS OU PRN (17:29)
[2022-08-22] MEDS: MAGNESIUM HYDROX 2400MG/30ML ORAL SUSPENSION 30 ML CUP PO PRN (17:29)
[2022-08-22] MEDS: THIAMINE HCL 100 MG TABLET (FP) PO SCH (21:16)
[2022-08-22] MEDS: MAG HYDROX/AL HYDROX/SIMETH 30 ML UNIT-DOSE CUP PO PRN (21:17)
[2022-08-22] MEDS: MELATONIN 5 MG TABLETS PO PRN (21:17)
[2022-08-22] MEDS: MIRTAZAPINE 15 MG TABLET (FP) PO SCH (21:17)
[2022-08-23] MEDS: methaDONE 80 MG, methaDONE 10 MG PO SCH (06:24)
[2022-08-23] MEDS: NICOTINE 10 MG CARTRIDGE (INHALER) IH PRN ×2 (06:25→21:10)
[2022-08-23] MEDS: BACITRACIN 0.9 GM PACKET TP SCH ×2 (09:31→21:09)
[2022-08-23] MEDS: MAGNESIUM HYDROX 2400MG/30ML ORAL SUSPENSION 30 ML CUP PO PRN (09:31)
[2022-08-23] MEDS: DOCUSATE SODIUM 100 MG CAPSULE (FP) PO PRN (09:31)
[2022-08-23] MEDS: SERTRALINE HCL 50 MG TABLET (FP) PO SCH (09:31)
[2022-08-23] MEDS: busPIRone HCL 10 MG TABLET (FP) PO SCH ×2 (09:31→21:09)
[2022-08-23] MEDS: hydrOXYzine PAMOATE 25 MG CAPSULE (FP) PO PRN ×2 (09:31→21:09)
[2022-08-23] MEDS: PANTOPRAZOLE 20 MG TABLET PO SCH (09:31)
[2022-08-23] MEDS: PRENATAL VITAMINS W/ FOLIC ACID TABLET (FP) PO SCH (09:32)
[2022-08-23] MEDS: NICOTINE 14 MG/24 HOURS TOPICAL PATCH TD PRN (13:08)
[2022-08-23] MEDS: THIAMINE HCL 100 MG TABLET (FP) PO SCH (21:10)
[2022-08-23] MEDS: MELATONIN 5 MG TABLETS PO PRN (21:10)
[2022-08-23] MEDS: MIRTAZAPINE 15 MG TABLET (FP) PO SCH (21:10)
[2022-08-24] MEDS: methaDONE 80 MG, methaDONE 10 MG PO SCH (06:47)
[2022-08-24] MEDS: PRENATAL VITAMINS W/ FOLIC ACID TABLET (FP) PO SCH (10:01)
[2022-08-24] MEDS: busPIRone HCL 10 MG TABLET (FP) PO SCH ×2 (10:02→21:20)
[2022-08-24] MEDS: ARTIFICIAL TEARS (POLYVINYL ALCOHOL) OPTH DROPS OU PRN (10:02)
[2022-08-24] MEDS: SERTRALINE HCL 50 MG TABLET (FP) PO SCH (10:02)
[2022-08-24] MEDS: PANTOPRAZOLE 20 MG TABLET PO SCH (10:02)
[2022-08-24] MEDS: BACITRACIN 0.9 GM PACKET TP SCH ×2 (10:02→21:32)
[2022-08-24] MEDS: NICOTINE 14 MG/24 HOURS TOPICAL PATCH TD PRN (10:03)
[2022-08-24] MEDS: MAGNESIUM HYDROX 2400MG/30ML ORAL SUSPENSION 30 ML CUP PO PRN (10:04)
[2022-08-24] MEDS: NICOTINE 10 MG CARTRIDGE (INHALER) IH PRN ×2 (10:05→21:21)
[2022-08-24] MEDS: hydrOXYzine PAMOATE 25 MG CAPSULE (FP) PO PRN ×2 (10:06→21:20)
[2022-08-24] MEDS: DOCUSATE SODIUM 100 MG CAPSULE (FP) PO PRN ×2 (10:07→21:20)
[2022-08-24] MEDS: THIAMINE HCL 100 MG TABLET (FP) PO SCH (21:20)
[2022-08-24] MEDS: MELATONIN 5 MG TABLETS PO PRN (21:20)
[2022-08-24] MEDS: MIRTAZAPINE 15 MG TABLET (FP) PO SCH (21:20)
[2022-08-25] MEDS: methaDONE 80 MG, methaDONE 10 MG PO SCH (06:16)
[2022-08-25] MEDS: MAGNESIUM HYDROX 2400MG/30ML ORAL SUSPENSION 30 ML CUP PO PRN (09:12)
[2022-08-25] MEDS: NICOTINE 10 MG CARTRIDGE (INHALER) IH PRN ×2 (09:12→21:29)
[2022-08-25] MEDS: BACITRACIN 0.9 GM PACKET TP SCH ×2 (09:12→21:30)
[2022-08-25] MEDS: SERTRALINE HCL 50 MG TABLET (FP) PO SCH (09:12)
[2022-08-25] MEDS: PANTOPRAZOLE 20 MG TABLET PO SCH (09:12)
[2022-08-25] MEDS: busPIRone HCL 10 MG TABLET (FP) PO SCH ×2 (09:12→21:28)
[2022-08-25] MEDS: PRENATAL VITAMINS W/ FOLIC ACID TABLET (FP) PO SCH (09:12)
[2022-08-25] MEDS: NICOTINE 14 MG/24 HOURS TOPICAL PATCH TD PRN (09:13)
[2022-08-25] MEDS: DOCUSATE SODIUM 100 MG CAPSULE (FP) PO PRN ×2 (09:14→21:28)
[2022-08-25] MEDS: hydrOXYzine PAMOATE 25 MG CAPSULE (FP) PO PRN ×2 (09:16→21:28)
[2022-08-25] MEDS: MELATONIN 5 MG TABLETS PO PRN (21:29)
[2022-08-25] MEDS: THIAMINE HCL 100 MG TABLET (FP) PO SCH (21:29)
[2022-08-25] MEDS: ARTIFICIAL TEARS (POLYVINYL ALCOHOL) OPTH DROPS OU PRN (21:29)
[2022-08-25] MEDS: MIRTAZAPINE 15 MG TABLET (FP) PO SCH (21:30)
[2022-08-26] MEDS: methaDONE 80 MG, methaDONE 10 MG PO SCH (06:27)
[2022-08-26] MEDS: busPIRone HCL 10 MG TABLET (FP) PO SCH ×2 (10:01→21:09)
[2022-08-26] MEDS: DOCUSATE SODIUM 100 MG CAPSULE (FP) PO PRN (10:01)
[2022-08-26] MEDS: PRENATAL VITAMINS W/ FOLIC ACID TABLET (FP) PO SCH (10:01)
[2022-08-26] MEDS: NICOTINE 10 MG CARTRIDGE (INHALER) IH PRN ×2 (10:02→21:11)
[2022-08-26] MEDS: PANTOPRAZOLE 20 MG TABLET PO SCH (10:02)
[2022-08-26] MEDS: SERTRALINE HCL 50 MG TABLET (FP) PO SCH (10:02)
[2022-08-26] MEDS: BACITRACIN 0.9 GM PACKET TP SCH ×2 (10:02→21:10)
[2022-08-26] MEDS: MAGNESIUM HYDROX 2400MG/30ML ORAL SUSPENSION 30 ML CUP PO PRN (10:03)
[2022-08-26] MEDS: NICOTINE 14 MG/24 HOURS TOPICAL PATCH TD PRN (10:52)
[2022-08-26] MEDS: hydrOXYzine PAMOATE 25 MG CAPSULE (FP) PO PRN (21:09)
[2022-08-26] MEDS: THIAMINE HCL 100 MG TABLET (FP) PO SCH (21:09)
[2022-08-26] MEDS: MELATONIN 5 MG TABLETS PO PRN (21:09)
[2022-08-26] MEDS: MIRTAZAPINE 15 MG TABLET (FP) PO SCH (21:10)
[2022-08-27] MEDS: methaDONE 80 MG, methaDONE 10 MG PO SCH (06:23)
[2022-08-27 07:06] VITALS: RESP 18
[2022-08-27] MEDS: PRENATAL VITAMINS W/ FOLIC ACID TABLET (FP) PO SCH (10:37)
[2022-08-27] MEDS: busPIRone HCL 10 MG TABLET (FP) PO SCH ×2 (10:37→21:38)
[2022-08-27] MEDS: PANTOPRAZOLE 20 MG TABLET PO SCH (10:37)
[2022-08-27] MEDS: hydrOXYzine PAMOATE 25 MG CAPSULE (FP) PO PRN ×2 (10:37→21:39)
[2022-08-27] MEDS: NICOTINE 10 MG CARTRIDGE (INHALER) IH PRN (10:37)
[2022-08-27] MEDS: MAGNESIUM HYDROX 2400MG/30ML ORAL SUSPENSION 30 ML CUP PO PRN (10:37)
[2022-08-27] MEDS: SERTRALINE HCL 50 MG TABLET (FP) PO SCH (10:37)
[2022-08-27] MEDS: NICOTINE 14 MG/24 HOURS TOPICAL PATCH TD PRN (10:37)
[2022-08-27] MEDS: DOCUSATE SODIUM 100 MG CAPSULE (FP) PO PRN ×2 (10:37→21:40)
[2022-08-27] MEDS: ARTIFICIAL TEARS (POLYVINYL ALCOHOL) OPTH DROPS OU PRN (10:38)
[2022-08-27] MEDS: BACITRACIN 0.9 GM PACKET TP SCH ×2 (10:38→21:40)
[2022-08-27] MEDS: MELATONIN 5 MG TABLETS PO PRN (21:38)
[2022-08-27] MEDS: THIAMINE HCL 100 MG TABLET (FP) PO SCH (21:38)
[2022-08-27] MEDS: MIRTAZAPINE 15 MG TABLET (FP) PO SCH (21:39)
[2022-08-28] MEDS: methaDONE 80 MG, methaDONE 10 MG PO SCH (06:16)
[2022-08-28] MEDS: NICOTINE 10 MG CARTRIDGE (INHALER) IH PRN ×2 (06:16→21:21)
[2022-08-28] MEDS: SERTRALINE HCL 50 MG TABLET (FP) PO SCH (10:22)
[2022-08-28] MEDS: busPIRone HCL 10 MG TABLET (FP) PO SCH ×2 (10:22→21:20)
[2022-08-28] MEDS: PANTOPRAZOLE 20 MG TABLET PO SCH (10:22)
[2022-08-28] MEDS: BACITRACIN 0.9 GM PACKET TP SCH ×2 (10:22→21:20)
[2022-08-28] MEDS: PRENATAL VITAMINS W/ FOLIC ACID TABLET (FP) PO SCH (10:22)
[2022-08-28] MEDS: hydrOXYzine PAMOATE 25 MG CAPSULE (FP) PO PRN ×2 (10:22→21:20)
[2022-08-28] MEDS: MAGNESIUM HYDROX 2400MG/30ML ORAL SUSPENSION 30 ML CUP PO PRN (10:23)
[2022-08-28] MEDS: NICOTINE 21 MG/24 HOURS TOPICAL PATCH TD PRN (10:24)
[2022-08-28] MEDS: IBUPROFEN 400 MG TABLET (FP) PO PRN (11:19)
[2022-08-28] MEDS: DOCUSATE SODIUM 100 MG CAPSULE (FP) PO PRN ×2 (14:03→21:20)
[2022-08-28] MEDS: MELATONIN 5 MG TABLETS PO PRN (21:20)
[2022-08-28] MEDS: MIRTAZAPINE 15 MG TABLET (FP) PO SCH (21:21)
[2022-08-28] MEDS: THIAMINE HCL 100 MG TABLET (FP) PO SCH (21:21)
[2022-08-29] MEDS: methaDONE 80 MG, methaDONE 10 MG PO SCH (06:17)
[2022-08-29 07:10] VITALS: BP 117/69; PULSE 72; TEMP 97.8
[2022-08-29] MEDS: PRENATAL VITAMINS W/ FOLIC ACID TABLET (FP) PO SCH (09:22)
[2022-08-29] MEDS: DOCUSATE SODIUM 100 MG CAPSULE (FP) PO PRN (09:23)
[2022-08-29] MEDS: PANTOPRAZOLE 20 MG TABLET PO SCH (09:23)
[2022-08-29] MEDS: SERTRALINE HCL 50 MG TABLET (FP) PO SCH (09:23)
[2022-08-29] MEDS: busPIRone HCL 10 MG TABLET (FP) PO SCH (09:23)
[2022-08-29] MEDS: BACITRACIN 0.9 GM PACKET TP SCH (09:23)
[2022-08-29] MEDS: hydrOXYzine PAMOATE 25 MG CAPSULE (FP) PO PRN (09:24)
[2022-08-29] MEDS: MAGNESIUM HYDROX 2400MG/30ML ORAL SUSPENSION 30 ML CUP PO PRN (09:24)
[2022-08-29] MEDS: NICOTINE 10 MG CARTRIDGE (INHALER) IH PRN (09:25)
[2022-08-29] MEDS: NICOTINE 21 MG/24 HOURS TOPICAL PATCH TD PRN (09:25)
== END 2022-08-29 15:15 | disposition home or self-care (01) | DRG 772 ==
LOC: YASAS 18:12 → Y3W 08-01 01:34
PROVIDERS: ADMIT Allergy & Immunology; ATTEND Surgery
PROC: HZ42ZZZ Group Counseling for Substance Abuse Treatment, Cognitive-Behavioral (ICD-10-PCS; principal; 2022-08-01)
DX: F11.20 Opioid dependence, uncomplicated (principal); F14.20 Cocaine dependence, uncomplicated; F13.20 Sedative, hypnotic or anxiolytic dependence, uncomplicated; F17.210 Nicotine dependence, cigarettes, uncomplicated; F19.280 Other psychoactive substance dependence with psychoactive substance-induced anxiety disorder; F19.282 Other psychoactive substance dependence with psychoactive substance-induced sleep disorder; F19.24 Other psychoactive substance dependence with psychoactive substance-induced mood disorder; F39 Unspecified mood [affective] disorder; F32.A Depression, unspecified; F41.9 Anxiety disorder, unspecified; F43.10 Post-traumatic stress disorder, unspecified; K21.9 Gastro-esophageal reflux disease without esophagitis; E66.01 Morbid (severe) obesity due to excess calories; Z68.41 Body mass index [BMI] 40.0-44.9, adult
CPT/HCPCS: 0124A; 81003; 91312; C9803-CS; G0008; Q2036; U0003; U0005